=== PATIENT | male | born 1950 | race Caucasian/White ===

== ENCOUNTER → 2017-09-10 | Outpatient (CLI) | payer OTHER ==
[~2017-09-10] MED LIST: ALPRAZOLAM ER1 MG; AMLODIPINE BESYL5 MG PER TUBE; ATORVASTATIN CA20 MG PER TUBE; AUGMENTIN125 MG/53 PO; AZITHROMYCIN 2250 MG PER TUBE; CEFUROXIME500 MG PER TUBE; CLARITIN10 MG PER TUBE; HYDROCODON-ACE1 EA10 PER TUBE; LASIX 20 MG TAB20 MG PO; LEVAQUIN 750 M750 MG PER TUBE; LEVAQUIN 750 M750 MG PO; METFORMIN HCL500 MG PER TUBE; NORVASC5 MG PO; PREDNISONE 10 M10 M1 PER TUBE; ROBITUSSIN100 MG/53 PER TUBE; SINGULAIR 10 MG10 M1 PER TUBE; VENTOLIN HFA 1818 GM INH; VICODIN ES TAB1 EACH; XANAX XR1 MG PER TUBE; XANAX1 MG PER TUBE; ZYVOX600 MG PO; [UNRECOGNIZED DRUG - OTHER]; [UNRECOGNIZED DRUG - OTHER]; [UNRECOGNIZED DRUG - OTHER]; [UNRECOGNIZED DRUG - OTHER]
[2017-09-10 14:52] LABS: HEMATOCRIT 34.5 % (42.0-52.0); HEMOGLOBIN 11.3 gm/dL (14.0-18.0); MCH 29.4 pg (26.0-34.0); MCHC 32.7 g/dL (28.0-37.0); MCV 89.9 fL (80.0-100.0); MPV 7.6 fl. (7.2-11.1); NUCLEATED RBCS 0 /100WBC; PLATELET COUNT* 210 thou/uL (150-400); RBC 3.84 mil/uL (4.50-6.00); RDW-CV 15.2 % (10.5-14.5); WBC 12.7 thou/uL (4.0-11.0)
[2017-09-10 15:06] LABS: CALCIUM 10.1 mg/dL (8.5-10.1); CREATININE 1.3 mg/dL (0.6-1.3); POTASSIUM 4.6 mmol/L (3.5-5.1)
[2017-09-10 15:19] LABS: ABSOLUTE EOSINOPHILS 0.3 thou/uL (0.0-0.7); ABSOLUTE LYMPHOCYTES 1.1 thou/uL (0.8-5.3); ABSOLUTE MONOCYTES 0.9 thou/uL (0.0-1.2); ABSOLUTE NEUTROPHILS 10.4 thou/uL (1.6-8.1)
[2017-09-10 15:20] LABS: PLATELET ESTIMATE ADEQUATE
== END ==
LOC: M.CT 14:05
PROVIDERS: Internal Medicine Critical Care Medicine
DX: J90 Pleural effusion, not elsewhere classified (principal); R91.8 Other nonspecific abnormal finding of lung field; E03.9 Hypothyroidism, unspecified; R13.12 Dysphagia, oropharyngeal phase; Z85.118 Personal history of other malignant neoplasm of bronchus and lung; Z85.810 Personal history of malignant neoplasm of tongue

== ENCOUNTER 2017-09-17 16:15 | Inpatient (IN) | payer OTHER ==
[~2017-09-17] VITALS: Ht 177.8 cm; Wt 75.3 kg
[~2017-09-17 16:15] MED LIST changes: -AUGMENTIN125 MG/53 PO; -AZITHROMYCIN 2250 MG PER TUBE; -CEFUROXIME500 MG PER TUBE; -CLARITIN10 MG PER TUBE; -LASIX 20 MG TAB20 MG PO; -LEVAQUIN 750 M750 MG PER TUBE; -LEVAQUIN 750 M750 MG PO; -NORVASC5 MG PO; -PREDNISONE 10 M10 M1 PER TUBE; -ROBITUSSIN100 MG/53 PER TUBE; -SINGULAIR 10 MG10 M1 PER TUBE; -VENTOLIN HFA 1818 GM INH; -XANAX1 MG PER TUBE; -ZYVOX600 MG PO
[2017-09-17 16:24] VITALS: BP 143/67
[2017-09-17 17:14] LABS: HEMATOCRIT 35.8 % (42.0-52.0); HEMOGLOBIN 11.8 gm/dL (14.0-18.0); MCH 28.8 pg (26.0-34.0); MCHC 33.1 g/dL (28.0-37.0); MCV 87.2 fL (80.0-100.0); NUCLEATED RBCS 0 /100WBC; PLATELET COUNT* 220 thou/uL (150-400); RDW-CV 15.6 % (10.5-14.5); WBC 13.9 thou/uL (4.0-11.0)
[2017-09-17 17:28] LABS: ANION GAP 13 mmol/L (7-16); BUN 28 mg/dL (7-18); CALCIUM 9.8 mg/dL (8.5-10.1); CHLORIDE 94 mmol/L (98-107); CO2 30 mmol/L (21-32); CREATININE 1.1 mg/dL (0.6-1.3); GLUCOSE 130 mg/dL (70-99); POTASSIUM 4.4 mmol/L (3.5-5.1); SODIUM 137 mmol/L (136-145)
[2017-09-17 17:29] LABS: INFLUENZA A ANTIGEN None Detected (None Detect)
[2017-09-17 17:41] LABS: ABSOLUTE BASOPHILS 0.1 thou/uL (0.0-0.2); ABSOLUTE EOSINOPHILS 0.1 thou/uL (0.0-0.7); ABSOLUTE LYMPHOCYTES 0.8 thou/uL (0.8-5.3); ABSOLUTE MONOCYTES 0.6 thou/uL (0.0-1.2); ABSOLUTE NEUTROPHILS 12.2 thou/uL (1.6-8.1); ALBUMIN 3.5 g/dL (3.4-5.0); ALKALINE PHOSPHATASE 100 U/L (46-116); LIPASE 49 U/L (73-393); NT-PRO BRAIN NAT PEPTIDE 182 pg/mL (<300); SGOT 30 U/L (15-37); SGPT 23 U/L (30-65); TOTAL BILIRUBIN 0.3 mg/dL (<0.1-1.0); TOTAL PROTEIN 9.2 g/dL (6.4-8.2); TROPONIN-I LEVEL <0.06 ng/mL (<0.06)
[2017-09-17 17:42] LABS: PLATELET ESTIMATE ADEQUATE
[2017-09-17 17:47] LABS: BE 4.4 mmol/L (-2 to +3); HCO3 29.4 mmol/L (22.0-26.0); PCO2 45.3 mmHg (35.0-45.0)
--- NOTE | 2017-09-17 18:20 | NUR ---
CALLED LET HER KNOW HE WAS BEING ADMITTED
[2017-09-17 18:28] VITALS: BP 140/59
[2017-09-17 18:30] VITALS: BP 141/66
[2017-09-17 23:57] LABS: URINE BILIRUBIN NEGATIVE (Negative); URINE BLOOD NEGATIVE (Negative); URINE CLARITY CLEAR; URINE COLOR YELLOW; URINE GLUCOSE-RANDOM NEGATIVE (Negative); URINE KETONES NEGATIVE (Negative); URINE LEUKOCYTES-REFLEX NEGATIVE (Negative); URINE NITRITE-REFLEX NEGATIVE (Negative); URINE PROTEIN NEGATIVE (Negative); URINE SPECIFIC GRAVITY <= 1.005 (1.005-1.030); URINE UROBILINOGEN 0.2 E.U./dl (0.2-1.0)
[2017-09-18] VITALS: BP 136/59
[2017-09-18 04:18] VITALS: BP 121/50; BP 131/63
[2017-09-18 04:22] LABS: HEMATOCRIT 32.4 % (42.0-52.0); HEMOGLOBIN 10.8 gm/dL (14.0-18.0); MCH 28.8 pg (26.0-34.0); MCHC 33.3 g/dL (28.0-37.0); MCV 86.2 fL (80.0-100.0); RBC 3.76 mil/uL (4.50-6.00); RDW-CV 15.2 % (10.5-14.5); WBC 12.1 thou/uL (4.0-11.0)
[2017-09-18 04:25] LABS: CALCIUM 9.2 mg/dL (8.5-10.1); CREATININE 1.1 mg/dL (0.6-1.3); MAGNESIUM 1.7 mg/dL (1.8-2.4); POTASSIUM 4.3 mmol/L (3.5-5.1)
--- NOTE | 2017-09-18 06:53 | NUR ---
PT SLEPT WELL OVERNIGHT, UP SBA TO SIDE OF BED TO VOID USING URINAL. O2 2LNC. [place]. OCC TOLL RELIEF OPERATOR COUGH HEARD. HS ACCUCHECK 213. AM LABS DRAWN. G TUBE WITH DRESSING IN PLACE, PT RELUCTANT TO HAVE SKIN EXAMINED, SKIN APPEARS A LITTLE RED AROUND TUBE. PT REFUSING TO REMOVE SOCKS, STATES HIS FEET ARE "SORE, AND FINE. I DONT WANT YOU TO DO THAT." HERE AT HS BRIEFLY. PT TAKING XANAX AT HS BY MOUTH WITH WATER-PT STATES HE TAKES MEDS AND "SNACKS" PO. ANOTHER TIME STATES HE DOES NOT TAKE ANY FOOD PO, JUST MEDS. GIVES CONFLICTING ANSWERS TO QUESTIONS AT TIMES THIS SHIFT. HAS SLEPT WELL OVERNIGHT, DROWSY THIS MORNING-XANAX NOT GIVEN. BED ALARM ON FOR SAFETY, CALL LITE IN EASY REACH.
[2017-09-18 08:16] VITALS: BP 126/62
--- NOTE | 2017-09-18 11:58 | NUR ---
SW met with pt and pt bedside to complete initial assessment, introduce self and SW role. Pt alert and oriented. Pt plans to dc home with . Pt has a nebulizer through [facility] and a rolling walker. SW to continue to follow to assist with safe dc planning.
--- NOTE | 2017-09-18 14:38 | EKG ---
[place] [address] ELECTROCARDIOGRAM REPORT Name: ROGE KLEIN Room: [address] ADM IN .R.#: [id number] Admission: 09/17/17 Attend Phys: Jorje Isaac MD Discharge: Date of : 46 Report #: [id number] THIS REPORT FOR: //name// [facility] ED Test Date: 2017-09-17 Test Time: 17:23:22 Pat Name: ROGE KLEIN Department: Room: [facility] Gender: M Inverted Block Operator: : 1950 Requested By: Maureen Ruiz Order Number: [id number] MD: Bakari Alaniz Measurements Intervals [place] Rate: 78 P: 9 NH: 143 QRS: 24 QRSD: 82 T: 32 QT: 372 QTc: 424 Interpretive Statements Sinus rhythm Low voltage, extremity leads No previous ECG available for comparison Electronically Signed On 09-18-2017 14:38:43 POSITION CLERK by Bakari Alaniz [email or web address] <ELECTRONICALLY SIGNED> By: Bakari Alaniz MD, [facility] 09/18/17 1438 1723 22 Bakari Alaniz MD, FACC /EPI
[2017-09-18 15:00] VITALS: BP 136/54
[2017-09-18 19:26] VITALS: BP 118/64
--- NOTE | 2017-09-18 19:34 | NUR ---
PATIENT RESTING IN BED. PATIENT DENIES ANY PAIN. PATIENT HAD COMPLAINTS OF NAUSEA THIS AM, ZOFRAN GIVEN WITH PARTIAL RELIEF. PATIENT IS ON TUBE FEEDING TID. PATIENT REFUSED AM FEED. ADMINISTERED LUNCHTIME AND DINNER BOLUSES. PATIENT HAS HAD NO VOMITING. PATIENT SEEN BY SPEECH THERAPY THIS AFTERNOON AND RECOMMENDED VIDEO SWALLOW BUT IT CAN'T BE COMPLETED UNTIL FRIDAY, NO DIET CHANGES AT THIS TIME PER SPEECH THERAPIST. PATIENT HAD SHORTNESS OF BREATH THIS AM, OR SATS AT 88% ON 2L/NC. PATIENT IS CURRENTLY ON 3L/NC. PATIENT DENIES ANY NEEDS AT THIS TIME. CALL LIGHT WITHIN REACH. WILL CONTINUE TO MONITOR.
--- NOTE | 2017-09-19 06:14 | NUR ---
ASSESSMENT COMPLETE. PT SLEPT GOOD DURING THE NIGHT. PT DENIES PAIN AND N/V. PT IS ON 2L PER NC WITH [place] SATS. PT IS IN ISOLATION FOR INFLUENZA B. PT IS ACCUCHECK. PT HAS IV IN LEFT AC, SALINE LOCKED. PT SKIN INTACT. PT TURNS SELF IN BED. PT IS UP WITH STANDBY ASSIST. PT IS SLEEPING AT THIS TIME AND HAS NO OTHER CONCERNS. SEE ASSESSMENT AND VITALS FOR OTHER DETAILS. CALL LIGHT WITHIN REACH, WILL CONTINUE TO MONITOR
[2017-09-19 08:00] VITALS: BP 132/62
[2017-09-19] MEDS ORDERED: AZITHROMYCIN 2250 MG PER TUBE (10:03)
[2017-09-19] MEDS ORDERED: CEFUROXIME500 MG PER TUBE (10:03)
[2017-09-19] MEDS ORDERED: ROBITUSSIN100 MG/53 PER TUBE (10:03)
--- NOTE | 2017-09-19 12:25 | NUR ---
Nutrition: RECOMMEND ADDING ONE MORE CARTON OF DIABETISOURCE TO PT'S TF REGIMEN DAILY - TOTALING 6 CARTONS PER DAY.
[2017-09-19 16:12] VITALS: BP 132/62
[2017-09-19 16:13] VITALS: BP 132/62
--- NOTE | 2017-09-19 16:14 | NUR ---
ISAAC faxed script for pt to receive OP video swallow after dc to [facility] OP therapy fax [phone]. OP therapy to contact pt for appointment. Pt to dc home today with pt and in need of oxygen with activity. Pt already using [facility] for nebulizer. [facility]AAC faxed orders and referral for oxygen to [facility] at fax [phone]. And ISAAC called [facility] at [phone] who accepted referral and will be delivering oxygen to pt room prior to pt dc. [facility] faxed referral and initial orders/med list to [facility].
[2017-09-19 17:37] VITALS: BP 133/62
--- NOTE | 2017-09-19 18:17 | NUR ---
ASSUMED CARE OF PATIENT. A/O X 4, DENIES PAIN, UP AD LOREN, ENRIQUE DIET WELL, VSS. ORDERS RECEIVED FOR DISCHARGE, NEEDING OXYGEN WITH ACTIVITY, 02 SAT STUDY COMPLETED, [facility] PROVIDED TANK FOR DISCHARGE, WILL MEET PATIENT AT RESIDENCE FOR HOME OXYGEN. PATIENT AGREEABLE WITH HOME HEALTH SERVICES, DISCHARGE ORDERS, FOLLOW UP APPOINTMENTS AND PRESCRIPTIONS DISCUSSED WITH AND GIVEN TO PATIENT AND , DENIES QUESTIONS AT THIS TIME. PERSONAL EFFECTS ACCOUNTED FOR AND IN COMPANY OF PATIENT, TRANSPORTED TO MAIN ENTRANCE VIA WHEELCHAIR, ON OXYGEN @ 3L NC, IN STABLE CONDITION.
== END 2017-09-19 17:00 | disposition home health service (06) | DRG 871 ==
LOC: M.ERS 16:15 → M.3W 17:07 → M.TBA-ER 17:07 → M.3W 18:34
PROVIDERS: Physician Assistant; ADMIT Internal Medicine
DX: A41.89 Other specified sepsis (principal); J69.0 Pneumonitis due to inhalation of food and vomit; J96.01 Acute respiratory failure with hypoxia; J10.08 Influenza due to other identified influenza virus with other specified pneumonia; I10 Essential (primary) hypertension; J20.8 Acute bronchitis due to other specified organisms; J47.9 Bronchiectasis, uncomplicated; E11.9 Type 2 diabetes mellitus without complications; Z87.891 Personal history of nicotine dependence; Z85.118 Personal history of other malignant neoplasm of bronchus and lung; Z85.810 Personal history of malignant neoplasm of tongue; Z92.21 Personal history of antineoplastic chemotherapy; Z92.3 Personal history of irradiation; Z93.1 Gastrostomy status; Z79.84 Long term (current) use of oral hypoglycemic drugs; Z79.899 Other long term (current) drug therapy; Z88.8 Allergy status to other drugs, medicaments and biological substances

== ENCOUNTER 2017-10-02 09:09 | Inpatient (IN) | payer OTHER ==
[~2017-10-02] VITALS: Ht 180.3 cm; Wt 74.8 kg
[~2017-10-02 09:09] MED LIST changes: +AZITHROMYCIN 2250 MG PER TUBE; +CEFUROXIME500 MG PER TUBE; +ROBITUSSIN100 MG/53 PER TUBE
[2017-10-02 09:17] VITALS: BP 126/63
[2017-10-02 09:50] LABS: HEMOGLOBIN 10.5 gm/dL (14.0-18.0); MCH 28.8 pg (26.0-34.0); MCHC 32.9 g/dL (28.0-37.0); MCV 87.4 fL (80.0-100.0); NUCLEATED RBCS 0 /100WBC; PLATELET COUNT* 210 thou/uL (150-400); RBC 3.67 mil/uL (4.50-6.00); RDW-CV 15.6 % (10.5-14.5); WBC 22.4 thou/uL (4.0-11.0)
[2017-10-02 10:00] LABS: BE 3.8 mmol/L (-2 to +3); HCO3 30.2 mmol/L (22.0-26.0); PO2 99.7 mmHg (75.0-100.0)
[2017-10-02 10:00] LABS: ANION GAP 4 mmol/L (7-16); BUN 30 mg/dL (7-18); CALCIUM 9.5 mg/dL (8.5-10.1); CHLORIDE 99 mmol/L (98-107); CO2 32 mmol/L (21-32); CREATININE 1.2 mg/dL (0.6-1.3); GLUCOSE 116 mg/dL (70-99); POTASSIUM 4.6 mmol/L (3.5-5.1); SODIUM 135 mmol/L (136-145)
[2017-10-02 10:01] LABS: PCO2 53.4 mmHg (35.0-45.0)
[2017-10-02 10:10] LABS: ALBUMIN 3.1 g/dL (3.4-5.0); ALKALINE PHOSPHATASE 78 U/L (46-116); LIPASE 45 U/L (73-393); NT-PRO BRAIN NAT PEPTIDE 165 pg/mL (<300); SGOT 16 U/L (15-37); SGPT 21 U/L (30-65); TOTAL BILIRUBIN 0.4 mg/dL (<0.1-1.0); TOTAL PROTEIN 8.6 g/dL (6.4-8.2); TROPONIN-I LEVEL <0.06 ng/mL (<0.06)
[2017-10-02 10:13] LABS: INR 1.2; PROTIME 11.4 Seconds (9.20-11.50)
[2017-10-02 10:34] LABS: ABSOLUTE EOSINOPHILS 0.2 thou/uL (0.0-0.7); ABSOLUTE LYMPHOCYTES 0.4 thou/uL (0.8-5.3); ABSOLUTE MONOCYTES 0.7 thou/uL (0.0-1.2); ABSOLUTE NEUTROPHILS 21.1 thou/uL (1.6-8.1); HYPOCHROMASIA 1+; LARGE PLATELETS OCCASIONAL; PLATELET ESTIMATE ADEQUATE
[2017-10-02 13:25] VITALS: BP 128/64
--- NOTE | 2017-10-02 17:18 | EKG ---
[place] [address] ELECTROCARDIOGRAM REPORT Name: ROGE KLEIN Room: [address] ADM IN M.R.#: [id number] Admission: 10/02/17 Attend Phys: Pardeep Shi MD Discharge: Date of : 46 Report #: [id number] THIS REPORT FOR: //name// [facility] ED Test Date: 2017-10-02 Test Time: 10:06:37 Pat Name: ROGE KLEIN Department: Room: [facility] Gender: M Diagnostic Medical Sonographer: MARÍA : 1950 Requested By: Raffi Matta Order Number: [id number] MD: Reggie Grace Measurements Intervals [place] Rate: 92 P: 26 CT: 129 QRS: 37 QRSD: 85 T: 41 QT: 345 QTc: 427 Interpretive Statements Sinus rhythm Low voltage, extremity leads Compared to ECG 09/17/2017 17:23:22 No significant changes Electronically Signed On 10-02-2017 17:18:07 ARM REST BUILDER by Reggie Grace [email or web address] <ELECTRONICALLY SIGNED> By: Reggie Grace MD, [facility] 10/02/17 1718 05 05 Reggie Grace MD, FAC /EPI
[2017-10-02 18:00] VITALS: BP 122/71
[2017-10-02 19:45] VITALS: BP 128/59
--- NOTE | 2017-10-02 19:45 | NUR ---
RESUMED CARE FOR THIS PATIENT THIS AFTERNOON. RECENTLY DISCHARGED WITH INSTRUCTIONS FOR OUTPATIENT VIDEO SWALLOW STUDY RE: RECURRENT ASPIRATION. PATIENT HAS PEG TUBE WITH SCHED BOLUS OF ISOSOURCE 1.5, 500 ML @ 0900, 500 ML @ 14OO, 250 ML @ 1900. BOLUS GIVEN @ 1800 THIS EVENING DUE TO MRI OF HEAD, COMPLETE. ON 5L02NC, LUNGS DIMIN THROUGHOUT, NONPROD COUGH, POOR COUGH. INCONTINENT OF URINE X 1 THIS SHIFT. KEPT STRICT NPO THIS SHIFT DUE TO RLL ASP VS. HCAP PNEUMONIA. 20G TO RAC PATENT TO NS @ 80/HR, ENRIQUE IV ABT WIHOUT NOTED ADR. CONFUSED FALL RISK, SIDERAILS UP X 4, BED ALARM ON, CALL LIGHT IN REACH. DISCHARGE PLAN IS TO [facility] FOR PT/OT/ST, POSSIBLE LTC VS. HOSPICE. CASE MANAGEMENT MADE AWARE OF PATIENT'S NOT FEELING SAFE WHEN CONSIDERING PATIENT RETURNING TO HOME. CALL LIGHT IN REACH, REPORT GIVEN TO PHOTO MASK CLEANER.
[2017-10-03] VITALS: BP 121/50
[2017-10-03 04:00] VITALS: BP 112/50
[2017-10-03 04:35] LABS: ABSOLUTE EOSINOPHILS 0.3 thou/uL (0.0-0.7); ABSOLUTE LYMPHOCYTES 0.7 thou/uL (0.8-5.3); ABSOLUTE MONOCYTES 1.1 thou/uL (0.0-1.2); ABSOLUTE NEUTROPHILS 8.8 thou/uL (1.6-8.1); BASOPHILS 0.2 %; EOSINOPHILS 2.4 %; HEMATOCRIT 30.9 % (42.0-52.0); HEMOGLOBIN 10.3 gm/dL (14.0-18.0); LYMPHOCYTES 6.7 %; MCH 29.3 pg (26.0-34.0); MCHC 33.4 g/dL (28.0-37.0); MCV 87.7 fL (80.0-100.0); MONOCYTES 10.3 %; MPV 8.5 fl. (7.2-11.1); NUCLEATED RBCS 0 /100WBC; PLATELET COUNT* 189 thou/uL (150-400); POLYS 80.4 %; RBC 3.52 mil/uL (4.50-6.00); RDW-CV 15.6 % (10.5-14.5)
[2017-10-03 04:47] LABS: CALCIUM 8.5 mg/dL (8.5-10.1); CREATININE 1.1 mg/dL (0.6-1.3); POTASSIUM 4.6 mmol/L (3.5-5.1)
--- NOTE | 2017-10-03 07:01 | NUR ---
PT AWAKE MOST OF NIGHT. ASSESSMENT DOCUMENTED. MEDS GIVEN PER E-MAR. PEG TUBE PATENT. IV PATENT, FLUIDS INFUSING. NEW IV STARTED. PT REPORTED GENERALIZED PAIN, PAIN MEDS GIVEN PER E-MAR. NO CONCERNS AT THIS TIME.
[2017-10-03 08:00] VITALS: BP 122/61
--- NOTE | 2017-10-03 14:17 | NUR ---
SW met with pt and pt to complete initial assessment, introduce self and SW role. Pt lives at home with . Pt known to SW from pt previous admission. Pt has oxygen at home through [facility] on 3L. SW discussed HH services through [facility] and pt said she would like for him to have HH services but at last dc, [facility] called to arrange visits, and pt refused. Pt wants pt to try again and SW said we could try to arrange again if pt will agree to HH services being arranged and if HH accepts referral. Pt understanding. SW to continue to follow to assist with safe dc planning.
[2017-10-03 16:24] VITALS: BP 122/54
[2017-10-03 19:40] VITALS: BP 118/51
--- NOTE | 2017-10-03 19:49 | NUR ---
RESUMED CARE THIS AM. CONT TO BE CONFUSED, VERY SUSPICIOUS OF STAFF ACTIVITY. CONT TO BE STRICT NPO, PATIENT THREATENS NONCOMPLIANCE FREQUENTLY. VIDEO SWALLOW EVAL COMPLETED, FAILED, STRICT NPO. CONT ON 6L02NC, AT BEDSIDE MOST OF THIS SHIFT. EEG SCHEDULED FOR TOMORROW AM. ENRIQUE IV ABT W/O ADR, ENRIQUE BOLUS TUBE FEEDING WITHOUT DIFF, BM TODAY. DISCHARGE PLAN IS TO FIND A [place] CONTRACTED FACILITY FOR PT/OT/ST, DUE TO EXTREME DYSPHAGIA, COGNITIVE DEFICIT, UNSTEADY GAIT, WEAKNESS, IMPAIRED ADL.
[2017-10-04 03:52] LABS: ABSOLUTE EOSINOPHILS 0.2 thou/uL (0.0-0.7); ABSOLUTE LYMPHOCYTES 0.6 thou/uL (0.8-5.3); ABSOLUTE MONOCYTES 0.7 thou/uL (0.0-1.2); ABSOLUTE NEUTROPHILS 9.2 thou/uL (1.6-8.1); BASOPHILS 0.3 %; EOSINOPHILS 2.1 %; HEMATOCRIT 31.1 % (42.0-52.0); HEMOGLOBIN 10.2 gm/dL (14.0-18.0); LYMPHOCYTES 5.7 %; MCH 28.9 pg (26.0-34.0); MCHC 32.8 g/dL (28.0-37.0); MONOCYTES 6.6 %; MPV 8.2 fl. (7.2-11.1); NUCLEATED RBCS 0 /100WBC; PLATELET COUNT* 190 thou/uL (150-400); POLYS 85.3 %; RBC 3.53 mil/uL (4.50-6.00); RDW-CV 15.5 % (10.5-14.5); WBC 10.8 thou/uL (4.0-11.0)
[2017-10-04 04:06] LABS: CALCIUM 9.4 mg/dL (8.5-10.1); CREATININE 1.1 mg/dL (0.6-1.3); POTASSIUM 4.5 mmol/L (3.5-5.1)
--- NOTE | 2017-10-04 05:54 | NUR ---
ASSESSMENT COMPLETE. PT UP ALL NIGHT. PT GIVEN PRN XANAX AND HYDROCODONE ONCE DURING THE NIGHT. PT IS NPO FOR FAILED SWALLOW STUDY. MEDICATION GIVEN PER G TUBE. PT GIVEN IV ZOSYN SCHEDULED. PT IS FALL RISK, BED ALARM ON. PT HAS IV FLUIDS INFUSING. SEE ASSESSMENT AND VITALS FOR OTHER DETAILS. CALL LIGHT WITHIN REACH. WILL CONTINUE PLAN OF CARE.
[2017-10-04 08:00] VITALS: BP 118/51
--- NOTE | 2017-10-04 12:00 | NUR ---
PATIENT REFUSING ALL MEDICATION AND TUBE FEEDING. ADAMANT ABOUT BEING DISCHARGED TODAY, CLEARED FOR DISCHARGE BY NEUROLOGY, DISCHARGE ORDERS RECEIVED FROM DR. STACY.
[2017-10-04] MEDS ORDERED: AUGMENTIN125 MG/53 PO (12:10)
[2017-10-04 12:16] VITALS: BP 118/51
--- NOTE | 2017-10-04 14:00 | NUR ---
PT.THREATENING TO LEAVE AMA EARLIER THIS AM. DISCUSSED WITH HIM AND AND WROTE DISCHARGE ORDERS FOR HOME HEALTH. MARCELINO,RN SAID PT.IS ALERT AND ORIENTED BUT HAS DEMENTIA AND CAN GET VERBALLY ABUSIVE AT TIMES. CM SPOKE WITH PT.AND . PT.VERY AGREEABLE WHILE CM IN ROOM TO HH. CM CALLED AND SPOKE WITH [facility]. PT.HAD REFUSED HH LAST DISCHARGE WHEN THEY CALLED HIM TO SET UP APPT. WANTS TO TRY AGAIN. HOME HEALTH TO CALL WIFES PHONE NUMBER TO SET UP APPT. PT.IS NPO AND HAS TUBE FDGS THAT ADMINISTERS. SHE SAID SHE GIVES HIM ABOUT 5 CANS PER DAY. SHE HAS BEEN GETTING THEM ON LINE. TOLD HER IF PT.UNABLE TO EAT AND TF ARE MAIN SOURCE OF NUTRITION, INSURANCE SHOULD BE PAYING FOR THEM. SHE WAS AGREEABLE TO CM MAKING REFERRAL TO [facility] FOR TF. PT.HAS HOME O2 THROUGH [facility]. DID NOT BRING PORTABLE. NOTIFIED OFFICE. DISTRIBUTION CENTER MANAGER CALLED BACK AND SAID HE WOULD BE ABOUT AN HR BUT WILL DELIVER PORTABLE TANK TO PT.'S ROOM. GAVE SR.HANDBOOK WITH RESOURCE INFORMATION AND LTC/SNF INFORMATION WHEN SHE WAS OUTSIDE OF PT.ROOM. FILAMENT MAKER ALSO ORDERED WITH HOME HEALTH. FAXED ORDERS,H&P TO [facility].
--- NOTE | 2017-10-04 16:07 | NUR ---
DISCHARGE ORDERS RECEIVED, OXYGEN TANK DELIVERED BY [facility]. IV ACCESSES REMOVED WITHOUT INCIDENT. DISCHARGE INSTRUCTIONS, FOLLOW UP APPOINTMENTS, PRESCRIPTION DISCUSSED WITH AND GIVEN TO PATIENT, AT BEDSIDE, BOTH DENY QUESTIONS AT THIS TIME. STRESSED THE IMPORTANCE OF NOT TAKING ANYTHING BY MOUTH ORDERED. PATIENT TRANSPORTED TO MAIN ENTRANCE VIA WHEELCHAIR BY THIS NURSE, OXYGEN ON, IN STABLE CONDITION.
--- NOTE | 2017-10-09 11:51 | CON ---
[address] [address] CONSULTATION Name: ROGE KLEIN Room: [address] IN M.R.#: [id number] Admission: 10/02/17 Attend Phys: Pardeep Shi MD Discharge: 10/04/17 Date of : 46 Report #: [id number] THIS REPORT FOR: //name// [facility] DATE OF SERVICE: 10/03/2017 HISTORY OF PRESENT ILLNESS: This is a 67-year-old male patient who was evaluated for any neurological etiology for the patient's altered mental status. This patient started having some cough and respiratory symptoms and along with that he developed some altered mental status. Apparently, this is going on for at least for a few months. It is not clear what his memory was before this episode. It looks like he was having some short-term memory problem. It started spontaneously and there was no trauma associated with this. He also has some disturbances of his gait and ambulation in general. REVIEW OF SYSTEMS: Extensive in this patient. He had apparently a lung cancer. This was treated with chemotherapy and radiation. He had recurrent episode of pneumonia. It looks like he had some hypoxia and dysphagia. He does have some anxiety. There is a history of chronic back pain. He has a history of anemia. He has a history of diabetes and hypertension. This was relevant 14-point review of system in this patient. PAST MEDICAL HISTORY: Positive for lung cancer. FAMILY HISTORY: Negative for early age stroke. SOCIAL HISTORY: This patient used to smoke and drink alcohol until his cancer was diagnosed a few months ago. PHYSICAL EXAMINATION: Indicate he is alert. He is responsive. His memory is poor. His fund of knowledge is poor. His speech looks intact. Cranial nerve examination 2-12 was carried out and mostly looks unremarkable. His strength, sensation, reflexes and tone looks symmetrical. His reflexes are diminished, but his position sense is present. He does not appear to have any cerebellar sign, but he has difficulty with walking and that may be because of either perineoplastic process or because of his heavy drinking alcohol in the past. His pulses are difficult to feel. He has no edema, cyanosis or jaundice. His fundus could not be visualized because he could not cooperate. He is reasonably well-developed individual who does not have any dysmorphic features of eyes, ears and face. His vision and hearing looks adequate. His blood pressure is 122/61, pulse is 77 and temperature is 98.4. His cardiac examinations appear mostly unremarkable. His respiratory examination does indicate rhonchi on both sides and he does [place] [address] CONSULTATION Name: ROGE KLEIN Room: [address] IN ..#: [id number] Admission: 10/02/17 Attend Phys: Pardeep Shi MD Discharge: 10/04/17 Date of : 46 Report #: [id number] LABORATORY DATA: His white count now is 11.0 and it was 22.4 yesterday. His TSH in August was normal. He did have an MRI of the brain that appeared mostly unremarkable. IMPRESSION: This patient's altered mental status is most likely secondary to encephalopathy caused by systemic infection as well as systemic problems this patient is having. WIND FARM OPERATIONS MANAGER infection is difficult to exclude. Other WIND FARM OPERATIONS MANAGER etiologies are less likely. RECOMMENDATION: I discussed with the patient and the family, his options. I discussed with them that if we need to be thorough, we need to do the spinal tap. They want to skip the spinal tap and we will do that. I will check a B12 level in this patient. I will check an EEG in this patient. Otherwise, I think we need to treat his systemic infection and see how he does. He also has a systemic malignancy and that can cause multiple perineoplastic processes. I discussed that aspect with the patient and the family. They understand it very well. The patient was discussed with Dr. Shi. More than 50 minutes of time was spent taking care of this patient today and majority of the time was spent counseling this patient and coordinating his care. Thank you very much for this referral. <ELECTRONICALLY SIGNED> By: Devan Charles MD 10/09/17 1151 1553 0417Devan Charles MD /nt
--- NOTE | 2017-10-09 11:53 | EEG ---
[address] [address] EEG STUDY REPORT Name: ROGE KLEIN Room: [address] IN M.R.#: [id number] Admission: 10/02/17 Attend Phys: Pardeep Shi MD Discharge: 10/04/17 Date of : 46 Report #: [id number] THIS REPORT FOR: //name// CC: Pardeep Shi [facility] DATE OF SERVICE: 10/04/2017 This patient is being evaluated for altered mental status. EEG was done by placing the electrodes by standard 10-20 system of electrode placement. Both referential and sequential montages were used for recording. Background activity in this patient's EEG is about 8 Hz and 30 microvolt. It is intermixed with theta range slowing on both sides. The patient went to sleep that is associated with bilateral slowing and vertex sharp waves. Throughout the record, no active epileptiform activity was noted. IMPRESSION: Moderately abnormal EEG because it is intermixed with theta range slowing on both sides. That is a nonspecific abnormality, which can occur with encephalopathy, effect of psychotropic medication, dementia, etc. Clinical correlation is recommended. Thank you very much for this referral. <ELECTRONICALLY SIGNED> By: Devan Charles MD 10/09/17 1153 1546 1703Pshaka Charles MD /nt
== END 2017-10-04 16:14 | disposition home health service (06) | DRG 871 ==
LOC: M.ERS 09:09 → M.3W 10:33 → M.TBA-ER 10:33 → M.3W 13:40
PROVIDERS: Emergency Medicine; ADMIT Internal Medicine
DX: A41.9 Sepsis, unspecified organism (principal); J69.0 Pneumonitis due to inhalation of food and vomit; J96.20 Acute and chronic respiratory failure, unspecified whether with hypoxia or hypercapnia; G93.40 Encephalopathy, unspecified; E44.0 Moderate protein-calorie malnutrition; I10 Essential (primary) hypertension; R13.10 Dysphagia, unspecified; G89.29 Other chronic pain; F03.90 Unspecified dementia, unspecified severity, without behavioral disturbance, psychotic disturbance, mood disturbance, and anxiety; M54.9 Dorsalgia, unspecified; E11.9 Type 2 diabetes mellitus without complications; Z85.810 Personal history of malignant neoplasm of tongue; Z92.21 Personal history of antineoplastic chemotherapy; Z92.3 Personal history of irradiation; Z85.118 Personal history of other malignant neoplasm of bronchus and lung; Z88.8 Allergy status to other drugs, medicaments and biological substances; Z87.891 Personal history of nicotine dependence; Z68.23 Body mass index [BMI] 23.0-23.9, adult; Z79.899 Other long term (current) drug therapy

== ENCOUNTER 2017-10-13 08:02 | Emergency (ER) | payer OTHER ==
[~2017-10-13] VITALS: Ht 180.3 cm; Wt 69.8 kg
[~2017-10-13 08:02] MED LIST changes: +AUGMENTIN125 MG/53 PO
[2017-10-13] MEDS ORDERED: XANAX1 MG PER TUBE (08:16)
[2017-10-13 10:06] VITALS: BP 129/65
== END 2017-10-13 10:08 | disposition home or self-care (01) ==
LOC: M.ERS 08:02
DX: K94.23 Gastrostomy malfunction (principal); I10 Essential (primary) hypertension; G89.29 Other chronic pain; E11.9 Type 2 diabetes mellitus without complications; Z88.8 Allergy status to other drugs, medicaments and biological substances

== ENCOUNTER 2017-10-15 15:48 | Inpatient (IN) | payer OTHER ==
[~2017-10-15] VITALS: Ht 177.8 cm; Wt 73.9 kg
[~2017-10-15 15:48] MED LIST changes: +XANAX1 MG PER TUBE
[2017-10-15 16:00] VITALS: BP 115/50
[2017-10-15 16:35] LABS: HEMATOCRIT 30.9 % (42.0-52.0); HEMOGLOBIN 9.9 gm/dL (14.0-18.0); MCH 28.2 pg (26.0-34.0); MCHC 32.2 g/dL (28.0-37.0); MCV 87.7 fL (80.0-100.0); MPV 8.4 fl. (7.2-11.1); NUCLEATED RBCS 0 /100WBC; PLATELET COUNT* 210 thou/uL (150-400); RBC 3.53 mil/uL (4.50-6.00); RDW-CV 15.9 % (10.5-14.5); WBC 13.5 thou/uL (4.0-11.0)
[2017-10-15 16:44] LABS: ANION GAP 2 mmol/L (7-16); BUN 34 mg/dL (7-18); CALCIUM 9.5 mg/dL (8.5-10.1); CHLORIDE 100 mmol/L (98-107); CO2 38 mmol/L (21-32); CREATININE 1.2 mg/dL (0.6-1.3); GLUCOSE 132 mg/dL (70-99); POTASSIUM 4.7 mmol/L (3.5-5.1); SODIUM 140 mmol/L (136-145)
[2017-10-15 16:51] LABS: APTT 29.6 Seconds (25.0-31.3); INR 1.2; PROTIME 11.4 Seconds (9.20-11.50)
[2017-10-15 16:55] LABS: ALKALINE PHOSPHATASE 77 U/L (46-116); NT-PRO BRAIN NAT PEPTIDE 256 pg/mL (<300); SGOT 21 U/L (15-37); SGPT 19 U/L (30-65); TOTAL BILIRUBIN 0.3 mg/dL (<0.1-1.0); TOTAL PROTEIN 8.7 g/dL (6.4-8.2); TROPONIN-I LEVEL <0.06 ng/mL (<0.06)
[2017-10-15 17:18] LABS: INFLUENZA A ANTIGEN None Detected (None Detect); INFLUENZA B ANTIGEN None Detected (None Detect)
[2017-10-15 17:36] LABS: ABSOLUTE EOSINOPHILS 0.1 thou/uL (0.0-0.7); ABSOLUTE LYMPHOCYTES 0.8 thou/uL (0.8-5.3); ABSOLUTE MONOCYTES 0.5 thou/uL (0.0-1.2)
[2017-10-15 17:37] LABS: MICROCYTES Occasional; PLATELET ESTIMATE ADEQUATE
[2017-10-15 18:37] VITALS: BP 110/63
[2017-10-15 22:04] VITALS: BP 140/78
[2017-10-15 23:41] VITALS: BP 124/76
[2017-10-16 04:00] VITALS: BP 125/69
--- NOTE | 2017-10-16 04:04 | NUR ---
ASSUMED CARE OF PT AT 1900 FROM THE ER. PT IS ALERT AND ORIENTED. VSS. PERRLA. NO COMPLAINTS OF PAIN. UP WITH 1 ASSIST. PT IS IN SINUS RYTHM ON THE TELEMETRY. PT IS RESTING COMFORTABLY IN BED. RESPIRATIONS ARE EVEN AND NONLABORED. WILL CONTINUE TO MONITOR PT.
[2017-10-16 04:37] LABS: BE 8.6 mmol/L (-2 to +3); HCO3 36.6 mmol/L (22.0-26.0); PO2 102.8 mmHg (75.0-100.0); pH 7.326 (7.340-7.450)
[2017-10-16 04:40] LABS: PCO2 71.7 mmHg (35.0-45.0)
[2017-10-16 08:30] VITALS: BP 120/48
[2017-10-16 11:20] VITALS: BP 135/53
--- NOTE | 2017-10-16 11:31 | NUR ---
RECEIVED REPORT AND ASSUMED CARE OF PT AT 0730. VSS. PT ON 6L VIA NC. PT UP WITH SBA IN ROOM WITH BRP. PT ALERT AND ORIENTED, WITH SOME FORGETFULNESS. PT DENIES ANY COMPLAINTS OF PAIN. CARDIAC MONITORING IN PLACE. DISCUSSED PLAN OF CARE WITH PT. PT COMMUNICATES UNDERSTANDING OF PLAN OF CARE. WILL CONTINUE TO MONITOR.
--- NOTE | 2017-10-16 12:49 | EKG ---
[place] [address] ELECTROCARDIOGRAM REPORT Name: ROGE KLEIN Room: [address] ADM IN M.R.#: [id number] Admission: 10/15/17 Attend Phys: Hollis Armendariz Discharge: Date of : 46 Report #: [id number] THIS REPORT FOR: //name// [facility] ED Test Date: 2017-10-15 Test Time: 16:10:13 Pat Name: ROGE KLEIN Department: Room: [facility] Gender: M Shell Trim Tool Setter: ROSI [place] : 1950 Requested By: Vinayak Rogers Order Number: [id number] MD: Reggie Grace Measurements Intervals [place] Rate: 92 P: 11 [place]: 138 QRS: 11 QRSD: 84 T: 57 QT: 346 QTc: 429 Interpretive Statements Sinus rhythm Minimal ST elevation, lateral leads Nonspecific ST-T wave abnormality Compared to ECG 10/02/2017 10:06:37 No significant change Electronically Signed On 10-16-2017 12:49:25 MANAGER FINANCE by Reggie Grace [email or web address] <ELECTRONICALLY SIGNED> By: Reggie Grace MD, FACC 10/16/17 1249 1610 1610 Reggie Grace MD, [facility] /EPI
--- NOTE | 2017-10-16 13:48 | NUR ---
CM SPOKE TO THE PATIENT AND HIS TO DISCUSS HIS HOME SITUATION, DISCHARGE PLANNING, AND TO INFORM OF THE ROLE OF CM. PATIENT ALERT AND ORIENTED. PATIENT RESIDES AT HOME WITH HIS AND SHE ASSIST HIM AT HOME WITH CARES AND TUBE FEEDINGS. PATIENT USES HOME O2 @ 3L PROVIDED BY [facility]. PATIENT IS CURRENT WITH [facility] AND WILL NEED ORDERS TO RESUME HH AT D/C. PATIENT PLANS TO RETURN HOME AT D/C. CM WILL REMAIN AVIALABLE TO ASSIST AND FOLLOW NEEDED.
--- NOTE | 2017-10-16 16:33 | 2DMMODE ---
[place] [address] 2 D/M-MODE ECHOCARDIOGRAM Name: ROGE KLEIN Room: [address] ADM IN [facility]#: [id number] Admission: 10/15/17 Attend Phys: Mariella Willoughby Discharge: Date of : 46 Date of Service: 10/16/17 1633 Report #: [id number] THIS REPORT FOR: //name// APPROVED REPORT Study performed: 10/16/2017 13:44:28 EXAM: Comprehensive 2D, Doppler, and color-flow Echocardiogram Patient Location: In-Patient Room #: [facility] Status: routine BSA: 1.91 HR: 94 bpm BP: 135/53 mmHg Rhythm: NSR Other Information Study Quality: Good Indications Dyspnea AMS 2D Dimensions LVEF(%): 72.60 (>50%) IVSd: 9.78 (7-11mm) LVOT Diam: 19.66 (18-24mm) LVDd: 46.15 mm PWd: 10.66 (7-11mm) Ascending Ao: 32.31 (22-36mm) LVDs: 26.94 (25-40mm) Aortic Root: 31.85 mm Coleman's LVEF: 72.60 % Volumes Left Atrial Volume (Systole) LA ESV Index: 18.50 mL/m2 Aortic Valve AoV Peak Ricardo.: 1.50 m/s AO Peak Gr.: 8.97 mmHg LVOT Max P.24 mmHg AO Mean Gr.: 4.74 mmHg LVOT Mean P.37 mmHg LVOT Max V: 1.25 m/s AO V2 VTI: 26.81 cm LVOT Mean V: 0.86 m/s AIDAN (VTI): 2.69 cm2 LVOT V1 VTI: 23.76 [place] [address] 2 D/M-MODE ECHOCARDIOGRAM Name: ROGE KLEIN Room: [address] IN .R.#: [id number] Admission: 10/15/17 Attend Phys: Mariella Willoughby Discharge: Date of : 46 Date of Service: 10/16/17 1633 Report #: [id number] E/A Ratio: 1.06 MV Decel. Time: 187.63 ms MV E Max Ricardo.: 1.00 m/s MV PHT: 54.41 ms MVA (PHT): 4.04 cm2 TDI E/Lateral E': 9.09 E/Medial E': 10.00 Medial E' Ricardo.: 0.10 m/s Lateral E' Ricardo.: 0.11 m/s Pulmonary Valve PV Peak Ricardo.: 1.21 m/s PV Peak Gr.: 5.82 mmHg Left Ventricle The left ventricle is normal size. There is normal LV segmental wall motion. There is normal left ventricular wall thickness. Left ventricular systolic function is normal. LVEF is >70%. Transmitral Doppler flow pattern suggests impaired LV relaxation. Right Ventricle The right ventricle is normal size. The right ventricular systolic function is normal. Atria The left atrium size is normal. The right atrium size is normal. Aortic Valve The aortic valve is normal in structure. No aortic regurgitation is present. There is no aortic valvular stenosis. Mitral Valve The mitral valve is normal in structure. There is no mitral valve regurgitation noted. No evidence of mitral valve stenosis. Tricuspid Valve The tricuspid valve is normal in structure. Unable to assess PA pressure. Trace tricuspid regurgitation. Pulmonic Valve The pulmonary valve is normal in structure. There is no pulmonic valvular regurgitation. Great Vessels The aortic root is normal in size. IVC is [place] [address] 2 D/M-MODE ECHOCARDIOGRAM Name: ROGE KLEIN SORIN Room: [address] IN M.R.#: [id number] Admission: 10/15/17 Attend Phys: Mariella Willoughby Discharge: Date of : 46 Date of Service: 10/16/17 1633 Report #: [id number] collapses with >50% inspiration Pericardium There is no pericardial effusion. <Conclusion> The left ventricle is normal size. There is normal left ventricular wall thickness. Left ventricular systolic function is normal. LVEF is >70%. Transmitral Doppler flow pattern suggests impaired LV relaxation. <ELECTRONICALLY SIGNED> By: Reggie Grace MD, FACC 10/16/17 1633 1633 1633 Reggie Grace MD, FACC /INF
[2017-10-16 16:39] VITALS: BP 121/58
--- NOTE | 2017-10-16 18:27 | NUR ---
PT IS A&O X4, WITH PERIODS OF FORGETFULNESS. PT RECEIVED TUBE FEEDINGS PER ORDER THROUGH SHIFT. PT UP WITH SBA AND BRP. PT ON 6L NC, BIPAP ORDERED FOR USE NOC. PT DENIES ANY COMPLAINTS OF PAIN OR DISCOMFORT. CXR ORDERED FOR THE MORNING. CARDIAC MONITORING IN PLACE. PULMONOLOGY CONSULTED. CALL LIGHT AND BELONGINGS WITHIN REACH. NEEDING SPUTUM SAMPLE, SPECIMEN CONTAINER IN ROOM WITH PT. PT COMMUNICATED UNDERSTANDING OF USE. WILL CONTINUE TO MONITOR FOR REMAINDER OF SHIFT.
[2017-10-16 19:30] VITALS: BP 125/53
[2017-10-17] VITALS: BP 131/66
--- NOTE | 2017-10-17 03:08 | NUR ---
ASSUMED CARE OF PT AT 1900. PT IS ALERT AND ORIENTED. VSS. PERRLA. NO COMPLAINTS OF PAIN. UP WITH 1 ASSIST. PT IS ON 3 LITERS O2. PT REFUSES TO WEAR BIPAP. PT IS IN SINUS RYTHM ON THE TELEMETRY. PT IS RESTING COMFORTABLY IN BED. RESPIRATIONS ARE EVEN AND NONLABORED. WILL CONTINUE TO MONITOR PT.
[2017-10-17 04:00] VITALS: BP 127/56
[2017-10-17 05:36] LABS: ABSOLUTE LYMPHOCYTES 0.7 thou/uL (0.8-5.3); ABSOLUTE MONOCYTES 0.5 thou/uL (0.0-1.2); ABSOLUTE NEUTROPHILS 8.5 thou/uL (1.6-8.1); BASOPHILS 0.1 %; HEMATOCRIT 30.3 % (42.0-52.0); HEMOGLOBIN 9.9 gm/dL (14.0-18.0); LYMPHOCYTES 6.9 %; MCH 28.5 pg (26.0-34.0); MCHC 32.8 g/dL (28.0-37.0); MCV 87.1 fL (80.0-100.0); MONOCYTES 5.7 %; MPV 8.7 fl. (7.2-11.1); NUCLEATED RBCS 0 /100WBC; PLATELET COUNT* 202 thou/uL (150-400); POLYS 87.3 %; RBC 3.48 mil/uL (4.50-6.00); RDW-CV 15.5 % (10.5-14.5); WBC 9.7 thou/uL (4.0-11.0)
[2017-10-17 05:55] LABS: PHOSPHORUS* 3.1 mg/dL (2.5-4.9)
[2017-10-17 05:56] LABS: CALCIUM 9.3 mg/dL (8.5-10.1); CREATININE 1.1 mg/dL (0.6-1.3); MAGNESIUM 1.8 mg/dL (1.8-2.4); POTASSIUM 4.3 mmol/L (3.5-5.1); TOTAL BILIRUBIN 0.2 mg/dL (<0.1-1.0)
[2017-10-17 08:45] VITALS: BP 132/87
--- NOTE | 2017-10-17 10:00 | NUR ---
PT SITTING IN HIGH STALLINGS'S POSITION IN BED, ABLE TO COMMUNICATE NEEDS TO STAFF. A & O X4. VSS, PAIN 8/10, PRN PAIN MED GIVEN PER TUBE PER OCT. SR ON GAMING DIRECTOR. ASSESSMENT COMPLETE. MEDS GIVEN PER TUBE AFTER RESIDUAL CHECKED (<10 MLS). APPROX 150 MLS H2O USED WITH MED DELIVERY. CALL LIGHT AND NEEDED ITEMS IN REACH. ENCOURAGED PT TO CALL FOR ASSIST WITH AMBULATION.
--- NOTE | 2017-10-17 10:42 | NUR ---
Faxed referral to [facility] to review for trilogy.
[2017-10-17 11:12] LABS: IgA 250 mg/dL (61-437); IgG 1826 mg/dL (700-1600); IgM 255 mg/dL (20-172)
[2017-10-17 11:55] VITALS: BP 88/55
--- NOTE | 2017-10-17 12:13 | CON ---
[address] [address] CONSULTATION Name: ROGE KLEIN Room: [address] IN M.R.#: [id number] Admission: 10/15/17 Attend Phys: Hollis Armendariz Discharge: Date of : 46 Report #: [id number] THIS REPORT FOR: //name// CC: Mariella Bonds DATE OF SERVICE: 10/16/2017 CONSULT REQUESTED BY: Dr. Willoughby. 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 The patient also has a history of severe COPD, is on oxygen longterm. I have seen him in the office in the past. He is not on long-term therapy with a BiPAP or other positive airway pressure device. The patient has had recent admissions to this hospital with pulmonary infiltrates. He has a PEG tube. He is now n.p.o. He has again presented with similar symptoms, primarily shortness of breath and cough. He does sleep with the head elevated. He essentially has no other new complaints at this time. He answered to the negative for 12 questions for review of systems. PAST MEDICAL HISTORY: Severe COPD. Pulmonary function tests were done at our office and are in the paper chart. Tongue carcinoma stage III. There are 2 previous PET scans performed. The possibility that the patient has residual disease is not ruled out at this time, hypertension, type 2 diabetes, hyperlipidemia. The patient has had a J-tube as well as a PEG tube placed in the past. It is not known to me, which tube the patient has in place at this time. Hypertension, chronic back pain, diabetes, back surgery. There is a questionable history of lung cancer mentioned in the chart; however, there is no definite information in this regard. It appears more likely that the patient has tongue cancer and not lung cancer. CURRENT MEDICATIONS: List in [facility] reviewed. Home medication list also in [facility] reviewed. Note that the patient recently received Augmentin. SOCIAL HISTORY: The patient was a smoker, more than a pack a day for several decades, discontinued in the last few months. There is a history of heavy alcohol use in the past; however, he discontinued many years ago. No known history of drug use. FAMILY HISTORY: Noncontributory. ALLERGIES: THE PATIENT HAS HAD ALTERED MENTAL STATUS UPON TAKING PREDNISONE. THIS WAS A SIDE EFFECT AND NOT AN ALLERGY. PHYSICAL EXAMINATION: [place] [address] CONSULTATION Name: ROGE KLEIN Room: [address]#: [id number] Admission: 10/15/17 Attend Phys: Hollis Armendariz Discharge: Date of : 46 Report #: [id number] GENERAL: Alert, awake and oriented, in no distress. VITAL SIGNS: Vitals in the records, reviewed, on 6 liters nasal cannula, narrow airway. No throat erythema. NECK: Does not show raised JVP. CHEST: Breath sounds decreased. Expirations prolonged. No added sounds. HEART: Regular, no murmur. ABDOMEN: Soft and nontender. There is a feeding tube in place. EXTREMITIES: Lower extremities, no edema, no calf tenderness. CT chest performed during last admission as well as now and chest x-rays are reviewed. The patient's blood work also in [facility] reviewed. Arterial blood gas in [facility] reviewed. ASSESSMENT AND PLAN: 1. Acute on chronic hypoxemic and hypercarbic respiratory failure. Noninvasive mechanical ventilation while asleep is required to slow the progression of his respiratory failure and eventual . Therefore, recommend arranging a Trilogy device for use while asleep, which is required longterm. We will continue with oxygen until the Trilogy is arranged. We will place him on a BiPAP while asleep. 2. Aspiration pneumonia. He is n.p.o. He has a feeding tube. He is already keeping his head elevated. Considering his recent use of Augmentin, I changed his antibiotics to Levaquin and Flagyl. More cultures are also ordered. 3. Chronic obstructive pulmonary disease exacerbation. Despite history of altered mental status as mentioned above, benefit is greater than risk of giving him steroid; therefore, Solu-Medrol is ordered; however, chosen a relatively low dose. 4. Tongue cancer. I feel that at some point, he will need a followup CT neck, may need a PET scan as well. We will see how he does. I did not order one for today. 5. Gastrointestinal prophylaxis/suspected gastroesophageal reflux disease. I ordered a proton pump inhibitor. 6. Deep vein thrombosis prophylaxis. If no contraindications, then consider Lovenox. Thanks for this consultation. <ELECTRONICALLY SIGNED> By: Paramjit Zarate MD 10/17/17 1213 1224 [id number] Zarate MD /nt
--- NOTE | 2017-10-17 15:30 | NUR ---
BOLUS TUBE FEEDING STARTED AT 1400 AFTER RESIDUAL CHECKED (30 MLS). TUBE FLOWS SLOW, 1 CAN ISO SOURCE 1.5 GIVEN, 250 MLS H20 FLUSH GIVEN. ALLOWED PT TO REST FOR 1 HOUR, THEN RESUMED BOLUS TUBE FEEDING, 2ND CAN GIVEN WITH FLUSH. PT ENRIQUE WELL.
[2017-10-17 16:00] VITALS: BP 126/54
--- NOTE | 2017-10-17 18:00 | NUR ---
WENT TO ROOM TO GIVE PT MEDICATIONS, PT REQUESTED LAST CAN OF TUBE FEEDING. 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 MEDICATIONS GIVEN AT THIS TIME BUT NOT ISO SOURCE FEEDING. EDUCATION GIVEN TO PT R/T ALLOWING STOMACH CONTENTS TO DIGEST AND ACCEPT TUBE FEEDING LATER THIS EVENING. PT AGREEABLE.
[2017-10-17 20:00] VITALS: BP 127/59
--- NOTE | 2017-10-17 22:00 | NUR ---
RECIEVED REPORT AND ASSUMED CARE OF PATIENT AT 1930. NUTRITION TECHNICIAN IN PLACE TRACING SR. ASSESSMENT AND VITALS COMPLETED CHARTED, VSS. PATIENT ON 3L O2 NC WITH SATS 97%. PATIENT HAS C/O PAIN IN BACK AND LEGS, HOWEVER, PAIN MEDICATION NOT DUE AT THIS TIME. PATIENT OFFERED COLD AND HEAT APPLICATION, PATIENT REFUSES. UPON GIVING PATIENT HIS HS TUBE FEEDING BOLUS, PATIENT STATES HE HAD ALREADY RECIEVED HIS EVENING BOLUS, IN WHICH THE DAY RN HAD STATED WAS HELD DUE TO RESIDUAL >180. CLARIFIED WITH PATIENT AND PATIENT WAS ADAMANT THAT HE DID NOT NEED A BOLUS. RESIDUAL <5 WITH MEDICATION ADMINISTRATION. CALL LIGHT WITHIN REACH.
[2017-10-18] VITALS: BP 136/59
--- NOTE | 2017-10-18 00:59 | NUR ---
PATIENT'S O2 SAT FOUND TO BE 85% AT MIDNIGHT VITALS. O2 TUBING WAS NOT CONNECTED TO WALL, ALTHOUGH PATIENT HAD THE CANNULA IN HIS NOSE. ONCE PATIENT PLACED BACK ON 3L, O2 SATS IMPROVED TO 93%.
[2017-10-18 04:12] VITALS: BP 143/67
--- NOTE | 2017-10-18 04:22 | NUR ---
PATIENT PARTIALLY PROGRESSING TOWARDS GOALS: O2 SATS MAINTAINED >92% ON 3L O2 NC, HOWEVER, PATIENT CONTINUES TO REFUSE BIPAP DESPITE EDUCATION AND ENCOURAGEMENT. PATIENT RESTED ON AND OFF THIS SHIFT BUT DID NOT GET MUCH SOLID SLEEP DESPITE PROMOTION OF A QUIET AND DARK ENVIRONMENT
[2017-10-18 04:42] LABS: HEMATOCRIT 30.3 % (42.0-52.0); MCH 28.6 pg (26.0-34.0); MCHC 33.1 g/dL (28.0-37.0); MCV 86.4 fL (80.0-100.0); MPV 8.7 fl. (7.2-11.1); RBC 3.51 mil/uL (4.50-6.00); RDW-CV 16.1 % (10.5-14.5); WBC 10.1 thou/uL (4.0-11.0)
[2017-10-18 05:05] LABS: CALCIUM 9.2 mg/dL (8.5-10.1); CREATININE 1.2 mg/dL (0.6-1.3); MAGNESIUM 1.6 mg/dL (1.8-2.4); POTASSIUM 4.2 mmol/L (3.5-5.1)
--- NOTE | 2017-10-18 09:13 | NUR ---
Hima lopezievered Pt's triology last evening and Pt declined it. CM provided Pt with a skilled list.
[2017-10-18 12:16] VITALS: BP 128/67
[2017-10-18 13:30] VITALS: BP 128/67
--- NOTE | 2017-10-18 13:31 | NUR ---
Pt discharging to home today with [facility]. Faxed dc orders. Family will transport
[2017-10-18] MEDS ORDERED: PREDNISONE 10 M10 M1 PER TUBE (14:57)
[2017-10-18] MEDS ORDERED: LEVAQUIN 750 M750 MG PER TUBE (15:02)
[2017-10-18 15:05] VITALS: BP 128/67
--- NOTE | 2017-10-18 17:00 | NUR ---
PT WITH DC ORDER COMPLETE. DC INSTRUCTIONS AND MED LIST REVIEWED WITH PT/SPOUSE. ANSWERED QUESTIONS TO THEIR SATISFACTION. IV AND ZIPPER SETTER LOCKSTITCH DC'D. PT IN POSSESSION OF ALL BELONGINGS. PT LEFT UNIT VIA WC WITH NURSING STAFF. SPOUSE TO TRANSPORT HOME VIA PERSONAL VEHICLE WITH HOME HEALTH ORDERS.
[2017-10-21 07:05] LABS: GLOBULIN TOTAL 4.2 g/dL (2.2-3.9); M-SPIKE Not Observed g/dL (Not Observed)
== END 2017-10-18 17:50 | disposition home health service (06) | DRG 177 ==
LOC: M.ERS 15:48 → M.2W 17:26 → M.TBA-ER 17:26 → M.2W 19:03
PROVIDERS: Emergency Medicine Emergency Medical Services; Family Medicine; Internal Medicine Critical Care Medicine; ADMIT Internal Medicine
DX: J69.0 Pneumonitis due to inhalation of food and vomit (principal); J96.21 Acute and chronic respiratory failure with hypoxia; J96.22 Acute and chronic respiratory failure with hypercapnia; G93.41 Metabolic encephalopathy; J44.1 Chronic obstructive pulmonary disease with (acute) exacerbation; I50.30 Unspecified diastolic (congestive) heart failure; E11.9 Type 2 diabetes mellitus without complications; G89.29 Other chronic pain; M54.9 Dorsalgia, unspecified; C02.9 Malignant neoplasm of tongue, unspecified; D89.2 Hypergammaglobulinemia, unspecified; I11.0 Hypertensive heart disease with heart failure; J15.6 Pneumonia due to other Gram-negative bacteria; Z85.118 Personal history of other malignant neoplasm of bronchus and lung; Z88.8 Allergy status to other drugs, medicaments and biological substances; Z87.891 Personal history of nicotine dependence

== ENCOUNTER → 2017-12-11 | Outpatient (CLI) | payer OTHER ==
[~2017-12-11] MED LIST changes: +CLARITIN10 MG PER TUBE; +LASIX 20 MG TAB20 MG PO; +LEVAQUIN 750 M750 MG PER TUBE; +LEVAQUIN 750 M750 MG PO; +NORVASC5 MG PO; +PREDNISONE 10 M10 M1 PER TUBE; +SINGULAIR 10 MG10 M1 PER TUBE; +VENTOLIN HFA 1818 GM INH; +ZYVOX600 MG PO
== END ==
LOC: M.RAD 10:00
DX: R13.12 Dysphagia, oropharyngeal phase (principal); J69.0 Pneumonitis due to inhalation of food and vomit; Z85.810 Personal history of malignant neoplasm of tongue

== ENCOUNTER 2018-01-25 10:26 | Inpatient (IN) | payer OTHER ==
[~2018-01-25] VITALS: Ht 182.9 cm; Wt 79.4 kg
[~2018-01-25 10:26] MED LIST changes: -CLARITIN10 MG PER TUBE; -LASIX 20 MG TAB20 MG PO; -LEVAQUIN 750 M750 MG PO; -NORVASC5 MG PO; -SINGULAIR 10 MG10 M1 PER TUBE; -VENTOLIN HFA 1818 GM INH; -ZYVOX600 MG PO
[2018-01-25 10:28] VITALS: BP 126/62
[2018-01-25 11:04] LABS: HEMATOCRIT 35.4 % (42.0-52.0); HEMOGLOBIN 11.8 gm/dL (14.0-18.0); MCH 29.6 pg (26.0-34.0); MCHC 33.4 g/dL (28.0-37.0); MCV 88.9 fL (80.0-100.0); MPV 8.7 fl. (7.2-11.1); NUCLEATED RBCS 0 /100WBC; PLATELET COUNT* 132 thou/uL (150-400); RBC 3.99 mil/uL (4.50-6.00); RDW-CV 15.3 % (10.5-14.5); WBC 18.7 thou/uL (4.0-11.0)
[2018-01-25 11:11] LABS: ANION GAP 8 mmol/L (7-16); BUN 38 mg/dL (7-18); CALCIUM 8.9 mg/dL (8.5-10.1); CHLORIDE 96 mmol/L (98-107); CO2 32 mmol/L (21-32); CREATININE 1.1 mg/dL (0.6-1.3); GLUCOSE 232 mg/dL (70-99); INR 1.1; POTASSIUM 4.1 mmol/L (3.5-5.1); SODIUM 136 mmol/L (136-145)
[2018-01-25 11:22] LABS: ALBUMIN 3.2 g/dL (3.4-5.0); LIPASE 43 U/L (73-393); NT-PRO BRAIN NAT PEPTIDE 178 pg/mL (<300); SGOT 14 U/L (15-37); SGPT 23 U/L (30-65); TOTAL BILIRUBIN 0.3 mg/dL (<0.1-1.0); TROPONIN-I LEVEL <0.06 ng/mL (<0.06)
[2018-01-25 11:38] LABS: ALKALINE PHOSPHATASE 74 U/L (46-116); TOTAL PROTEIN 7.4 g/dL (6.4-8.2)
[2018-01-25 11:43] LABS: ABSOLUTE EOSINOPHILS 0.2 thou/uL (0.0-0.7); ABSOLUTE LYMPHOCYTES 0.4 thou/uL (0.8-5.3); ABSOLUTE MONOCYTES 0.2 thou/uL (0.0-1.2); PLATELET ESTIMATE ADEQUATE
[2018-01-25 13:27] LABS: URINE BILIRUBIN NEGATIVE (Negative); URINE BLOOD NEGATIVE (Negative); URINE CLARITY CLEAR; URINE COLOR YELLOW; URINE GLUCOSE-RANDOM NEGATIVE (Negative); URINE KETONES NEGATIVE (Negative); URINE LEUKOCYTES-REFLEX NEGATIVE (Negative); URINE NITRITE-REFLEX NEGATIVE (Negative); URINE PROTEIN NEGATIVE (Negative); URINE UROBILINOGEN 0.2 E.U./dl (0.2-1.0)
[2018-01-25 13:38] LABS: MAGNESIUM 1.4 mg/dL (1.8-2.4)
[2018-01-25 14:57] VITALS: BP 120/57
--- NOTE | 2018-01-25 15:56 | NUR ---
pt to room from ER, appears alert o x4, denies chest pain, sob, pain or discomfort, on o2 at 3l per nc, states is home o2 rate
[2018-01-25 16:15] VITALS: BP 125/60
[2018-01-25 18:21] VITALS: BP 125/60
[2018-01-25 20:00] VITALS: BP 136/55
--- NOTE | 2018-01-25 22:21 | NUR ---
PATIENT FOUND SLEEPING WITH O2 LEVELS IN 80'S. OXYGEN INCREASED TO 5 LITERS HIGH FLOW. OXYGEN LEVEL RETURN TO 94%.
--- NOTE | 2018-01-25 23:34 | NUR ---
PATIENT'S ALPRAZOLAM WAS GIVEN BY PEG TUBE. PATIENT TOLERATED WELL.
[2018-01-26] VITALS: BP 115/52
[2018-01-26 04:00] VITALS: BP 123/53
[2018-01-26 04:48] LABS: HEMATOCRIT 33.1 % (42.0-52.0); HEMOGLOBIN 10.8 gm/dL (14.0-18.0); MCH 29.6 pg (26.0-34.0); MCHC 32.5 g/dL (28.0-37.0); MCV 91.1 fL (80.0-100.0); MPV 9.2 fl. (7.2-11.1); RBC 3.63 mil/uL (4.50-6.00); RDW-CV 15.3 % (10.5-14.5); WBC 13.6 thou/uL (4.0-11.0)
[2018-01-26 05:33] LABS: ALBUMIN 2.9 g/dL (3.4-5.0); CALCIUM 8.2 mg/dL (8.5-10.1); MAGNESIUM 1.8 mg/dL (1.8-2.4); POTASSIUM 4.3 mmol/L (3.5-5.1); TOTAL BILIRUBIN 0.5 mg/dL (<0.1-1.0); TOTAL PROTEIN 6.3 g/dL (6.4-8.2)
--- NOTE | 2018-01-26 05:33 | NUR ---
PATIENT RESTED IN BED. PATIENT O2 INCREASE TO 2 LITERS. PATIENT DID NOT COMPLAIN OF CHEST PAIN OR SOB. PATIENT DID NOT SHOW SINGS OF DISTRESS. FALL PRECAUTIONS IN PLACE, CALL LIGHT WITHIN REACH, HOURLY ROUNDING OBSERVED, BED ALARM ON.
[2018-01-26 08:00] VITALS: BP 160/55
--- NOTE | 2018-01-26 08:30 | NUR ---
RECEIVED REPORT FROM LORNE GARZA. PATIENT IS AXOX4, ASSESSMENT CHARTED, PAIN PRESENT AT THIS TIME, NO NAUSEA OR SHORTNESS OF AIR. NPO UNTIL SPEECH EVALUATION, PILLS THROUGH PEG TUBE. PATIENT CONTINUALLY STATES HE IS GOING HOME TONIGHT, SAYS HE HAS A LUNG DOCTOR APPT TOMORROW FOR A SECOND OPINION AND HAS TO GO TO THAT AND CANNOT RESCHEDULE IT. EXPLAINED TO HIM THAT HE JUST GOT TO THE HOSPITAL YESTERDAY AND THAT ONE DAY IS NOT ENOUGH TO GET BETTER JUST BECAUSE HE FEELS BETTER TODAY FROM YESTERDAY. WILL SPEAK WITH DOCTOR WHEN HE ROUNDS. BED IN LOWSEST POSITION, CALL LIGHT IN REACH, INSULATION MECHANIC IN PLACE. WILL CONTINUE TO MONITOR.
[2018-01-26] MEDS ORDERED: PREDNISONE 10 M10 M1 PER TUBE (09:43)
[2018-01-26] MEDS ORDERED: CLARITIN10 MG PER TUBE (09:43)
[2018-01-26] MEDS ORDERED: METFORMIN HCL500 MG PER TUBE (09:46)
[2018-01-26] MEDS ORDERED: SINGULAIR 10 MG10 M1 PER TUBE (09:48)
--- NOTE | 2018-01-26 11:12 | EKG ---
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 Porter: : 1950 Requested By: Raffi Matta Order Number: [id number] MD: Bakari Alaniz Measurements Intervals [place] Rate: 100 P: 19 [place]: 135 QRS: 1 QRSD: 80 T: 18 QT: 327 QTc: 422 Interpretive Statements Sinus tachycardia with pac's Borderline low voltage, extremity leads artifact noted Compared to ECG 10/15/2017 16:10:13 ST (T wave) deviation still present Electronically Signed On 01-26-2018 11:12:17 CDT by Bakari Alaniz [email or web address] <ELECTRONICALLY SIGNED> By: Bakari Alaniz MD, [facility] 01/26/18 1112 1043 1043 Bakari Alaniz MD, [facility] /EPI
--- NOTE | 2018-01-26 11:20 | NUR ---
PATIENT IS BACK FROM MRI.
--- NOTE | 2018-01-26 11:59 | NUR ---
Pt out of the room at MRI, spoke with Pt's at bedside. Pt is A&O. Independent with ADLs, continues to drive, completes cooking and cleaning. Pt wears home o2 through [employer]. Pt was approved for a trilogy during his last hospital stay, but declined it. Pt uses home neb 4x/day. Hx of [facility], ST just stopped last Friday, Pt to have a video swallow, to determine if he needs continued ST, if so, ok to resume [facility]. No hx of snf. Goal is to return home at [place]. Following.
[2018-01-26 12:27] VITALS: BP 122/54
[2018-01-26 15:53] VITALS: BP 130/55
--- NOTE | 2018-01-26 18:48 | NUR ---
PATIENT IS PROGRESSING TOWARDS GOALS, NO PAIN, NAUSEA OR SHORTNESS, HE WILL DISCHARGE IN THE AM, DR MARTINEZ NEEDS TO ORDER A PO ANTIBIOTIC BEFORE HE LEAVES AND DR OSEGUERA WILL SEE HIM FIRST IN THE AM. TOLERATED PEG TUBE FEEDS TODAY. BED IN LOWEST POSITION, CALL LIGHT IN REACH, WILL CONTINUE TO [facility].
[2018-01-26 20:00] VITALS: BP 127/60
[2018-01-27] VITALS: BP 158/56
--- NOTE | 2018-01-27 02:55 | NUR ---
DOCTOR MICHELLE NOTIFIED OF PATIENT'S BLOOD SUGAR, SEE ORDERS. DOCTOR MICHELLE ALSO NOTIFIED OF PATIENT'S COMPLAINT OF PAIN, SEE ORDERS.
[2018-01-27 04:00] VITALS: BP 113/53
--- NOTE | 2018-01-27 05:15 | NUR ---
PATIENT RESTED IN BED, NO ACUTE CHANGES. PATIENT DID NOT SHOW SIGNS OF DISTRESS. FALL PRECAUTIONS IN PLACE, BED ALARM ON, CALL LIGHT WITHIN REACH, HOURLY ROUNDING OBSERVED.
--- NOTE | 2018-01-27 07:11 | CON ---
[address] [address] CONSULTATION Name: ROGE KLEIN Room: [address] IN M.R.#: [id number] Admission: 01/25/18 Attend Phys: Dilia Moreira MD Discharge: Date of : 46 Report #: [id number] THIS REPORT FOR: //name// CC: Dilia [place] DATE OF SERVICE: 01/26/2018 INFECTIOUS DISEASE CONSULTATION ATTENDING PHYSICIAN: Dr. Moreira. REASON FOR EVALUATION: Febrile illness associated with productive cough. The patient had a history of head and neck carcinoma. HISTORY OF PRESENT ILLNESS: Chart reviewed, patient examined. This is a 67-year-old with history of base of the tongue cancer, has undergone chemotherapy and radiation in 2017. He has issue with swelling, has typically had history lung cancer as well as diabetes and hypertension, who was admitted with some progressive dyspnea associated with productive cough and was noted to have fevers. Evaluation noted some residual associated mass with the left neck. Chest x-ray was somewhat equivocal. Blood cultures collected at the time of admission are sterile thus far. Lactic acid was elevated at 2.6 and now has trended down to 1.1. White count elevated at 18.7 initially, repeat was 13.6. He was empirically started on combination therapy with piperacillin, tazobactam as well as vancomycin. ALLERGIES: PREDNISONE. CURRENT MEDICATIONS: Include atorvastatin, alprazolam, Zosyn, vancomycin, enoxaparin, ipratropium and albuterol inhaler, pantoprazole, hydrocodone, amlodipine. PAST MEDICAL HISTORY: As described above, hypertension, some chronic back pain, diabetes, cancer of base of the tongue and history of lung cancer. SOCIAL HISTORY: Former smoker. No ethanol, no illicit drug use. FAMILY HISTORY: Noncontributory. REVIEW OF SYSTEMS: As above. PHYSICAL EXAMINATION: GENERAL: Appears chronically ill, undernourished, is pleasant and cooperative, is in [id number] distress. VITAL SIGNS: Temperature 97.9 with a T-max of 100.2, pulse 70, respirations 18, [place] [address] CONSULTATION Name: ROGE KLEIN SORIN Room: [address] IN [facility]#: [id number] Admission: 01/25/18 Attend Phys: Dilia Moreira MD Discharge: Date of : 46 Report #: [id number] blood pressure 160/55. SKIN: Warm and dry. HEENT: Unremarkable. NECK: Supple. LUNGS: Left basilar crackles. HEART: Regular. ABDOMEN: Soft. There are no overt peritoneal signs. GENITOURINARY AND RECTAL: Deferred. LABORATORY DATA: As described above. Most recent electrolytes, sodium 142, potassium 4.3, chloride 104, bicarbonate is 32, anion gap of 6, BUN and creatinine 28 and 1.0, glucose of 28. AST of 16, ALT of 20, albumin 2.9, total protein 6.3. Lactic acid 1.1. CBC: White count 13.6, H 10.8 and 33.1, platelets of 120. CT of the neck as noted above, diminished mass. No cervical adenopathy. Urinalysis is otherwise unremarkable. ASSESSMENT: Febrile illness associated with elevation of lactic acid, certainly could have an early sepsis. Certainly at risk, would worry about the respiratory tract upper and lower at this point. We will continue empiric therapy, ongoing evaluation of possible mass on CT of the head and is scheduled for MRI. We will await pending studies and monitor expectantly. <ELECTRONICALLY SIGNED> By: Zachary Peres MD 01/27/18 0711 1121 [id number] Peres MD /nt
[2018-01-27 08:00] VITALS: BP 137/56
--- NOTE | 2018-01-27 10:08 | NUR ---
ASSUMED CARE OF PT AT 0730. PT RESTING IN BED. FAMILY AT BEDSIDE. PT A&0X4, PT IS EAGER TO GO HOME THIS AM. PT DENIES ANY PAIN OR SHORTNESS OF BREATH AT THIS TIME. TRACING SR ON THE TURBINE TECHNICIAN. VSS. PT ON 3L NC SAT 96%. PT UP WITH 1 ASSIST TO BATHROOM WITH WALKER. PT REQUESTED TO ONLY RECEIVE 1 CAN OF TUBE FEEDINGS THIS AM PT HAS A LOT TO DO TODAY AND AN APPT AND NOT SURE WHAT WILL HAPPEN AT APPT. FEEDING COMPLETED WITH NO COMPLICATIONS. NO RESUDUAL NOTED. AM ASSESSMENT CHARTED. MEDICATIONS PER MAR IN PEG TUBE. PT REPOSITIONS SELF. HOURLY ROUNDING OBSERVED. BED IN LOW POSITION. BED ALARM IN PLACE. FALL PRECAUTIONS IN PLACE. CALL LIGHT WITHIN REACH. WILL CONTINUE PLAN OF CARE.
[2018-01-27 10:17] VITALS: BP 137/56
[2018-01-27 10:30] VITALS: BP 137/56
[2018-01-27] MEDS ORDERED: LEVAQUIN 750 M750 MG PO (10:36)
--- NOTE | 2018-01-27 10:52 | NUR ---
DISCHARGE ORDERS RECEIVED. DISCHARGE INSTRUCTIONS, CARE NOTES, SCRIPT AND FOLLOW UP APPTS TO PT. PT COMMUNICATES UNDERSTANDING OF DISCHARGE TEACHING. IV AND STORAGE ARCHITECT REMOVED. PT DISCHARGED TO HOME WITH HOME HEALTH WITH ALL BELONGINGS AND PAPERWORK VIA WHEELCHAIR WITH VOLUNTEER STAFF TO SPOUSE OWN PERSONAL VEHICLE.
== END 2018-01-27 11:05 | disposition home health service (06) | DRG 871 ==
LOC: M.ERS 10:26 → M.TBA-ER 12:12 → M.2W 12:12
PROVIDERS: Emergency Medicine; Family Medicine; ADMIT Internal Medicine
DX: A41.9 Sepsis, unspecified organism (principal); J69.0 Pneumonitis due to inhalation of food and vomit; J96.21 Acute and chronic respiratory failure with hypoxia; E87.2 Acidosis; E11.9 Type 2 diabetes mellitus without complications; E86.0 Dehydration; I10 Essential (primary) hypertension; G89.29 Other chronic pain; M54.9 Dorsalgia, unspecified; Z93.1 Gastrostomy status; Z85.810 Personal history of malignant neoplasm of tongue; Z88.8 Allergy status to other drugs, medicaments and biological substances; Z87.891 Personal history of nicotine dependence; Z85.118 Personal history of other malignant neoplasm of bronchus and lung; Z79.2 Long term (current) use of antibiotics; Z79.899 Other long term (current) drug therapy

== ENCOUNTER 2018-02-08 19:34 | Inpatient (IN) | payer OTHER ==
[~2018-02-08] VITALS: Ht 180.3 cm; Wt 78.5 kg
[~2018-02-08 19:34] MED LIST changes: +CLARITIN10 MG PER TUBE; +LEVAQUIN 750 M750 MG PO; +SINGULAIR 10 MG10 M1 PER TUBE
[2018-02-08 19:35] VITALS: BP 126/64
[2018-02-08 20:02] LABS: HEMATOCRIT 37.5 % (42.0-52.0); HEMOGLOBIN 12.4 gm/dL (14.0-18.0); MCH 29.3 pg (26.0-34.0); MCV 88.8 fL (80.0-100.0); MPV 7.9 fl. (7.2-11.1); NUCLEATED RBCS 0 /100WBC; PLATELET COUNT* 183 thou/uL (150-400); RBC 4.22 mil/uL (4.50-6.00); RDW-CV 15.1 % (10.5-14.5); WBC 31.7 thou/uL (4.0-11.0)
[2018-02-08 20:16] LABS: ANION GAP 6 mmol/L (7-16); BUN 37 mg/dL (7-18); CALCIUM 9.4 mg/dL (8.5-10.1); CHLORIDE 95 mmol/L (98-107); CO2 32 mmol/L (21-32); CREATININE 1.3 mg/dL (0.6-1.3); GLUCOSE 161 mg/dL (70-99); POTASSIUM 4.9 mmol/L (3.5-5.1); SODIUM 133 mmol/L (136-145)
[2018-02-08 20:18] LABS: INR 1.2; PROTIME 11.6 Seconds (9.20-11.50)
[2018-02-08 20:27] LABS: ALBUMIN 3.6 g/dL (3.4-5.0); ALKALINE PHOSPHATASE 70 U/L (46-116); LIPASE 41 U/L (73-393); NT-PRO BRAIN NAT PEPTIDE 426 pg/mL (<300); SGOT 29 U/L (15-37); SGPT 30 U/L (30-65); TOTAL BILIRUBIN 0.6 mg/dL (<0.1-1.0); TOTAL PROTEIN 8.5 g/dL (6.4-8.2); TROPONIN-I LEVEL <0.06 ng/mL (<0.06)
[2018-02-08 20:36] LABS: ABSOLUTE LYMPHOCYTES 1.9 thou/uL (0.8-5.3); ABSOLUTE MONOCYTES 1.9 thou/uL (0.0-1.2); ABSOLUTE NEUTROPHILS 27.9 thou/uL (1.6-8.1); METAMYELOCYTES 1 %; PLATELET ESTIMATE ADEQUATE
[2018-02-08 21:02] LABS: BE 1.5 mmol/L (-2 to +3); HCO3 27.1 mmol/L (22.0-26.0); PCO2 46.9 mmHg (35.0-45.0); pH 7.379 (7.340-7.450)
[2018-02-08 21:06] LABS: PO2 272.2 mmHg (75.0-100.0)
[2018-02-08 22:00] VITALS: BP 113/46
[2018-02-08 22:07] LABS: URINE BILIRUBIN NEGATIVE (Negative); URINE BLOOD NEGATIVE (Negative); URINE CLARITY CLEAR; URINE COLOR YELLOW; URINE GLUCOSE-RANDOM NEGATIVE (Negative); URINE KETONES NEGATIVE (Negative); URINE LEUKOCYTES-REFLEX NEGATIVE (Negative); URINE NITRITE-REFLEX NEGATIVE (Negative); URINE PROTEIN TRACE (Negative); URINE UROBILINOGEN 0.2 E.U./dl (0.2-1.0)
[2018-02-08 22:30] VITALS: BP 113/53
--- NOTE | 2018-02-09 00:13 | NUR ---
RECEIVED REPORT AND PT TO ROOM 220 AT 2220. ON BIPAP AT 40% FIO2 WITH RESP 24. O2 SAT 91%. AT BEDSIDE ASSISTING WITH ADMISSION. SEE ASSESSMENT AND HX. TELEMETRY APPLIED SHOWING SR. WILL CONT TO MONITOR AND ASSIST NEEDED.
[2018-02-09 04:02] VITALS: BP 118/63
[2018-02-09 04:51] LABS: HEMATOCRIT 32.1 % (42.0-52.0); HEMOGLOBIN 10.5 gm/dL (14.0-18.0); MCH 29.4 pg (26.0-34.0); MCHC 32.7 g/dL (28.0-37.0); MCV 89.9 fL (80.0-100.0); MPV 8.2 fl. (7.2-11.1); RBC 3.57 mil/uL (4.50-6.00); RDW-CV 14.9 % (10.5-14.5)
[2018-02-09 05:20] LABS: WBC 40.3 thou/uL (4.0-11.0)
[2018-02-09 05:32] LABS: ALBUMIN 2.7 g/dL (3.4-5.0); CALCIUM 9.1 mg/dL (8.5-10.1); CREATININE 1.2 mg/dL (0.6-1.3); POTASSIUM 4.6 mmol/L (3.5-5.1); TOTAL BILIRUBIN 0.5 mg/dL (<0.1-1.0); TOTAL PROTEIN 6.5 g/dL (6.4-8.2)
--- NOTE | 2018-02-09 06:02 | NUR ---
SLEPT WELL. PT ABLE TO TURN HIMSELF IN BED WITH REMINDER. HAS NOT VOIDED SINCE ADMITTED TO ROOM. REMAINS ON BIPAP WITH INCREASED FIO2 TO 55%. IV FLUIDS INFUSING PER SEPSIS PROTOCOL. NO CHANGE IN ASSESSMENT. TELEMETRY SHOWING SR. HS GOALS OF REST AND SAFETY ACHIEVED. HOURLY ROUNDING OBSERVED.
--- NOTE | 2018-02-09 07:14 | NUR ---
PT WAS ABLE TO VOID 750 CC PER URINAL. PEG SITE CLEANED AND DRSG CHANGED. TUBE FEEDING BOLUS GIVEN AND TOLERATED WELL.
[2018-02-09 08:10] VITALS: BP 128/68
--- NOTE | 2018-02-09 10:01 | NUR ---
INITIAL ASSESSMENT: Pt evaluated for d/c planning needs. Reviewed chart and spoke with nurse. Pt lives in house with spouse and was independent with ADL's prior to admission. completes cooking and cleaning. Pt wears home o2 through [employer]. Pt was approved for a trilogy during previous hospital stay, but declined it. Pt uses home nebulizer. Pt is currently on service with [facility]. Notified [facility] of admission. Pt plans on returning home on d/c from hospital. Will remain available to assist as needed.
--- NOTE | 2018-02-09 10:38 | EKG ---
[place] [address] ELECTROCARDIOGRAM REPORT Name: ROGE KLEIN Room: [address] ADM IN .R.#: [id number] Admission: 02/08/18 Attend Phys: Jorje Isaac MD Discharge: Date of : 46 Report #: [id number] THIS REPORT FOR: //name// [facility] ED Test Date: 2018-02-08 Test Time: 19:39:36 Pat Name: ROGE KLEIN Department: Room: Gender: M Hair Assistant: 1 : 1950 Requested By: Rosalind Mata Order Number: [id number] MD: Bakari Alaniz Measurements Intervals [place] Rate: 121 P: 72 TN: 151 QRS: -25 QRSD: 77 T: 19 QT: 291 QTc: 413 Interpretive Statements Sinus tachycardia Borderline left axis deviation Borderline low voltage, extremity leads Artifact in lead(s) I,II,III,aVR,aVL,aVF and baseline wander in lead(s) V6 Compared to ECG 01/25/2018 10:43:32 No significant changes Electronically Signed On 02-09-2018 10:38:12 CDT by Bakari Alaniz [email or web address] <ELECTRONICALLY SIGNED> By: Bakari Alaniz MD, FACC 02/09/18 1038 38 38 Bakari Alaniz MD, FACC /EPI
--- NOTE | 2018-02-09 10:53 | NUR ---
RECEIVED REPORT FROM ROSEY AND ASSUMED CARE OF PT @ 6256.PT IS A/O,VSS,TRACING SR ON THE MONITOR.LUNG SOUNDS ARE COARSE.REMAINS ON BIPAP PER REQUEST.WHILE BIPAP IS OFF PT IS ON 12L O2 HIGH FLOW NC.LAST BM WAS 3 DAYS AGO.PT STATES HE IS CONSTIPATED.DR CONTACTED FOR STOOL SOFTENER ORDERS.IV RIGHT FOREARM PATENT WITH FLUIDS RUNNING @ 130ML/HR.IV LEFT AC PATENT AND SALINE LOCKED.PT IS CALM AND COOPERATIVE WITH NO C/O PAIN AT TIME OF ASSESSMENT.PT IS UP WITH ONE ASSIST TO BSC.CALL LIGHT AND FALL PRECAUTIONS IN PLACE. WILL CONTINUE TO MONITOR.NPO STATUS MAINTAINED.PT REFUSED ACCU CHECK THIS AM.
[2018-02-09 11:30] VITALS: BP 146/65
[2018-02-09 16:00] VITALS: BP 133/67
--- NOTE | 2018-02-09 18:22 | NUR ---
VSS,CARDIAC MONITORING IN PLACE WITH NO CHANGES THIS SHIFT.PT REMAINS ON 8L HIGH FLOW O2 NC.BIPAP NEEDED.PT PROGRESSING TOWARDS GOALS.PT C/O GENERALIZED PAIN, MESSAGE SENT TO CREDIT COLLECTIONS ANALYST TO RESUME HOME PAIN MEDICATIONS.IVF INFUSING.IV ANTIBIOTICS COMPLETED.PT NPO STATUS.PEG TUBE PATENT AND SECURE.BOLUS TUBE FEED COMPLETED.PT REFUSED MORNING AND AFTERNOON ACCU CHECKS.PT INFORMED OF PLAN OF CARE AND COMMUNICATES UNDERSTANDING.HOURLY ROUNDING COMPLETED FOR PT SAFETY.CALL LIGHT AND FALL PRECAUTIONS IN PLACE.WILL CONTINUE TO MONITOR FOR DURATION OF SHIFT.
[2018-02-09 19:45] VITALS: BP 148/66
--- NOTE | 2018-02-09 20:00 | NUR ---
RECEIVED REPORT AND ASSUMED CARE OF PT EARLIER, ASSESSMENT COMPLETED. PT GRUFF AND STATES HE IS READY TO LEAVE. LONG TALK WITH PT AND HE UNDERSTANDS THAT HIS PNEUMONIA IS WORSE THEN PREVIOUS TIMES AND NEEDS TO KEEP OXYGEN UP ALONG WITH NEED FOR ANTIBIOTICS. SITTING UPON SIDE OF BED, RT ADJUSTING OXYGEN DUE TO SAT OF 85%, WILL RE-EVALUATE ON 10 L/HFC. TELEMETRY ON SHOWING ST. VOIDING LG AMT PER URINAL. WILL CONT TO MONITOR AND ASSIST NEEDED.
[2018-02-10] VITALS: BP 141/71
--- NOTE | 2018-02-10 02:00 | NUR ---
PT ASKING FOR BLANKET, CHILLING. TEMP TAKEN, 102.7. PT REQUESTING PAIN MED AND ANXIETY MED. GIVEN ALONG WITH TYLENOL. PT BECAME NAUSEATED AND DRY HEAVING, ZOFRAN GIVEN. STATES HE FEELS BETTER ALREADY.
[2018-02-10 04:00] VITALS: BP 127/54
[2018-02-10 05:37] LABS: ABSOLUTE BASOPHILS 0.1 thou/uL (0.0-0.2); ABSOLUTE LYMPHOCYTES 0.4 thou/uL (0.8-5.3); ABSOLUTE MONOCYTES 0.7 thou/uL (0.0-1.2); ABSOLUTE NEUTROPHILS 25.9 thou/uL (1.6-8.1); BASOPHILS 0.5 %; HEMATOCRIT 29.3 % (42.0-52.0); HEMOGLOBIN 9.7 gm/dL (14.0-18.0); LYMPHOCYTES 1.5 %; MCH 29.4 pg (26.0-34.0); MCHC 32.9 g/dL (28.0-37.0); MCV 89.2 fL (80.0-100.0); MONOCYTES 2.7 %; MPV 8.7 fl. (7.2-11.1); NUCLEATED RBCS 0 /100WBC; PLATELET COUNT* 128 thou/uL (150-400); POLYS 95.3 %; RBC 3.29 mil/uL (4.50-6.00); RDW-CV 15.1 % (10.5-14.5); WBC 27.2 thou/uL (4.0-11.0)
[2018-02-10 05:45] LABS: CALCIUM 8.4 mg/dL (8.5-10.1); CREATININE 1.1 mg/dL (0.6-1.3); POTASSIUM 3.6 mmol/L (3.5-5.1)
--- NOTE | 2018-02-10 06:20 | NUR ---
AWAKE AND RESTLESS MOST OF NIGHT. INCREASINGLY CONFUSED WITH DECREASED OXYGEN. AT PRESENT TIME ON BIPAP WITH 60% FIO2. TEMP REMAINS ELEVATED AT 101.5 AXI. TYENOL GIVEN EARLIER. VOIDING PER URINAL. TELEMETRY SHOWING SR TO LOW ST. HOURLY ROUNDING OBSERVED. ACHIEVED HS GOALS OF SAFETY AND PARTICAL GOAL OF REST.
[2018-02-10 08:14] VITALS: BP 137/73
[2018-02-10 11:50] VITALS: BP 128/50
--- NOTE | 2018-02-10 14:12 | NUR ---
ASSUMED CARE OF PATIENT AFTER REPORT THIS MORNING. PATIENT AWAKE, ALERT, AND ORIENTED APPROPRIATELY. PHYSICAL ASSESSMENT COMPLETED AND CHARTED. COMPLAINED OF PAIN. GIVEN PRN AND SCHEDULED MEDICATIONS, CRUSHED, THROUGH PEG TUBE DISSOLVED IN WATER. VITAL SIGNS STABLE AT TIME OF ASSESSMENT THIS MORNING. OXYGEN SATURATION WITHIN NORMAL LIMITS ON BIPAP. PATIENT HAS ATTEMPTED TO USE NASAL CANULA AT 10-15 HIGH FLOW AND SATURATION DECREASES TO BELOW 90%. MOVED PATIENT TO HALLWAY DURING TORNADO WARNING THIS AFTERNOON AND USED NASAL CANULA AT 15 LPM WITH EXTENSION TUBING. PATIENT'S OXYGEN SATURATION DECREASED TO 77%. RESPIRATORY THERAPY NOTIFIED AND PATIENT HOOKED BACK UP TO BIPAP. OXYGEN SATURATION INCREASED BACK TO > 90%. PATIENT TURNS SELF IN BED. IV FLUIDS AND ANTIBIOTICS INFUSING ORDERED. USES CALL LIGHT APPROPRIATELY. DENIES NEEDS AT THIS TIME. CALL LIGHT WITHIN REACH. NURSING WILL CONTINUE TO MONITOR.
[2018-02-10 15:37] VITALS: BP 118/59
--- NOTE | 2018-02-10 18:21 | NUR ---
PATIENT REMAINS ALERT AND ORIENTED APPROPRIATELY. ON HIGH FLOW TOWER NOW AT 40 LPM AND 72% OXYGEN. SATTING > 90%. GIVEN PRN MEDICATIONS FOR PAIN AND ANXIETY, SEE EMAR FOR DOCUMENTATION. DENIES NEEDS AT THIS TIME. CALL LIGHT WITHIN REACH. NURSING WILL CONTINUE TO MONITOR.
[2018-02-10 19:55] VITALS: BP 113/57
[2018-02-11 00:03] VITALS: BP 119/59
[2018-02-11 04:00] VITALS: BP 132/60
--- NOTE | 2018-02-11 05:07 | NUR ---
PT AAOX4, NO ACUTE DISTRESS NOTED. HIGH FLOW O2 TOWER INTACT SETTINGS 40 L AND 83%, RESP HAS ADJUSTED % NEEDED. PT STATES HE NEEDS HIS ANXIETY MEDS AND PAIN MEDS MORE OFTEN. PT STATES AT HOME HE TAKES WHENEVER HE NEEDS. PT ANXIOUS AT TIMES. PT CAN BE SOB AT TIMES WITH EXERTION. TEMP HAS IMROVED TELEMETRY PACK INTACT WITH ALARMS SET, FAMILY AT BEDSIDE.PEG TUBE INTACT AND CLAMPED. PT TOLERATING BOLUS FEEDS. NO ACUTE CHANGES DURING SHIFT. WILL CONTINUE TO MONITOR
[2018-02-11 08:00] VITALS: BP 128/65
--- NOTE | 2018-02-11 11:00 | NUR ---
ASSUMED CARE OF PT AFTER REPORT AT 0730. PT A&OX4. VSS. PHYSICAL ASSESSMENT COMPLETED AND CHARTED. PT ON HIGH FLOW TOWER AT 40L. PT IV LINE AT RAC AND LAC PATENT AND INTACT. PT UP WITH 1 ASSIST. PT DOES NOT WANT HIS BLOOD SUGAR TO BE CHECKED AND DONT WANT HIS INSULIN TO BE GIVEN. EDUCATED BY NURSE AND AGREEABLE TO BLOOD SUGAR MONITORING AND INSULIN ADMINISTRATION. PT STATES "DONT WANT TO BE BOTHERED FOR THE REST OF THE DAY". CALL LIGHT WITHIN REACH. WILL CONTINUE TO MONITOR PT.
[2018-02-11 12:00] VITALS: BP 137/62
--- NOTE | 2018-02-11 12:12 | CON ---
[address] [address] CONSULTATION Name: ROGE KLEIN Room: [address] IN M.R.#: [id number] Admission: 02/08/18 Attend Phys: Jorje Isaac MD Discharge: Date of : 46 Report #: [id number] THIS REPORT FOR: //name// CC: Jorje [place] DATE OF SERVICE: 02/10/2018 INFECTIOUS DISEASE CONSULTATION ATTENDING PHYSICIAN: Jorje Isaac MD REASON FOR EVALUATION: Persistent fevers on treatment for multifocal pneumonitis. The patient had recent hospitalization for same. HISTORY OF PRESENT ILLNESS: Chart reviewed, patient examined. 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 He has undergone chemotherapy and radiation. He was actually hospitalized from to the with febrile illness, productive cough, associated lactic acidemia, felt to have some early sepsis. Chest x-ray showed some bibasilar atelectasis. He, however, over the course of the last few hours prior to admission, had progressive dyspnea with associated encephalopathy, low grade temperature elevations. Now he reports the cough is somewhat productive. Of note, he was started on broad spectrum antimicrobial therapy, specifically piperacillin/tazobactam, vancomycin and levofloxacin. In spite of that he actually had increased temperature high grade up to 102.9 earlier today. Hemodynamically, he is not overtly labile. He is maintained on BiPAP at this point. ALLERGIES: PREDNISONE. CURRENT MEDICATIONS: Include levofloxacin, methylprednisolone, vancomycin, montelukast, Zosyn, loratadine, amlodipine, atorvastatin, pantoprazole, alprazolam. PAST MEDICAL HISTORY: As described above, head and neck cancer post-chemoradiation, diabetes mellitus, hypertension, chronic back pain, and does have enteral feeding tube. SOCIAL HISTORY: Former smoker. No ethanol. FAMILY HISTORY: Noncontributory. REVIEW OF SYSTEMS: Somewhat limited as above. Denies significant [place] [address] CONSULTATION Name: ROGE KLEIN Room: [address] IN [facility].#: [id number] Admission: 02/08/18 Attend Phys: Jorje Isaac MD Discharge: Date of : 46 Report #: [id number] PHYSICAL EXAMINATION: GENERAL: He is in moderate distress secondary to respiratory difficulties. He does have the BiPAP in place. He is alert. He is tracking well. He seems to have appropriate responses. He is somewhat chronically ill-appearing. VITAL SIGNS: Most recent temperature 101.5 with a T-max earlier at 102.9, pulse 103, respirations 16, blood pressure 128/50. SKIN: Warm, dry. HEENT: Remarkable for the BiPAP. NECK: Supple. LUNGS: Scattered coarse breath sounds bilaterally. HEART: Borderline tachycardic, regular. I do not appreciate a murmur. ABDOMEN: Soft, nontender, nondistended. EXTREMITIES: No cyanosis. GENITOURINARY: Deferred. RECTAL: Deferred. LABORATORY DATA: Blood cultures sterile thus far. Prealbumin 16.3. Electrolytes: Sodium 141, potassium 3.6, chloride 105, bicarbonate is 27, anion gap of 9, BUN and creatinine of 25 and 1.1, estimated GFR of 66. CBC: White count of 27.2, actually down from 31.7 on admission, H and H 9.7 and 29.3, platelets of 128. Differential fairly unremarkable other than neutrophilia. CTA of the chest PE protocol, no evidence of PE, multifocal pneumonia with basilar prominence, left greater than right. Urinalysis unremarkable. Lactic acid 1.9. Plain film of the chest on admission did show the patchy consolidation of the left lower lobe. ASSESSMENT AND PLAN: Pneumonitis with now high grade fevers in spite of broad spectrum antimicrobial therapy. This was not necessarily the case when he was admitted, somewhat of a biphasic illness initially had defervesced to some degree and now it certainly raises question of additional diagnosis perhaps noninfectious causes of fever. It is difficult to ascertain whether he has been treated clinically. We will adjust the antimicrobial therapy at this point. Try to collect a sputum sample and see how he does clinically. Wean off support as allowed. Discussed with the patient's spouse. <ELECTRONICALLY SIGNED> By: Zachary Peres MD 02/11/18 1212 1230 [id number] Peres MD /nt
[2018-02-11 14:32] LABS: HEMATOCRIT 30.4 % (42.0-52.0); HEMOGLOBIN 9.8 gm/dL (14.0-18.0); MCH 29.2 pg (26.0-34.0); MCHC 32.3 g/dL (28.0-37.0); MCV 90.4 fL (80.0-100.0); MPV 8.3 fl. (7.2-11.1); NUCLEATED RBCS 0 /100WBC; PLATELET COUNT* 129 thou/uL (150-400); RBC 3.36 mil/uL (4.50-6.00); RDW-CV 15.4 % (10.5-14.5); WBC 16.7 thou/uL (4.0-11.0)
[2018-02-11 14:48] LABS: ALBUMIN 2.3 g/dL (3.4-5.0); CALCIUM 8.3 mg/dL (8.5-10.1); CREATININE 1.1 mg/dL (0.6-1.3); MAGNESIUM 1.7 mg/dL (1.8-2.4); POTASSIUM 3.8 mmol/L (3.5-5.1); TOTAL BILIRUBIN 0.3 mg/dL (<0.1-1.0); TOTAL PROTEIN 6.9 g/dL (6.4-8.2)
[2018-02-11 15:04] LABS: ABSOLUTE MONOCYTES 0.2 thou/uL (0.0-1.2); ABSOLUTE NEUTROPHILS 16.5 thou/uL (1.6-8.1); PLATELET ESTIMATE DECREASED
[2018-02-11 15:07] LABS: ANISOCYTOSIS Occasional; HYPOCHROMASIA Occasional; MICROCYTES Occasional; POLYCHROMASIA Occasional
[2018-02-11 16:00] VITALS: BP 155/68
--- NOTE | 2018-02-11 18:07 | 2DMMODE ---
[place] [address] 2 D/M-MODE ECHOCARDIOGRAM Name: ROGE KLEIN Room: [address] IN [facility]#: [id number] Admission: 02/08/18 Attend Phys: Jorje Isaac, Discharge: Date of : 46 Date of Service: 02/11/18 1806 Report #: [id number] THIS REPORT FOR: //name// APPROVED REPORT Study performed: 02/11/2018 13:37:22 EXAM: Comprehensive 2D, Doppler, and color-flow Echocardiogram Patient Location: In-Patient Room #: 220 Status: routine BSA: 1.94 HR: 96 bpm BP: 137/62 mmHg Rhythm: NSR Other Information Study Quality: Fair Indications COPD Sepsis Dyspnea Hypoxia 2D Dimensions IVSd: 7.88 (7-11mm) LVOT Diam: 20.13 (18-24mm) LVDd: 47.31 mm PWd: 8.72 (7-11mm) Ascending Ao: 30.73 (22-36mm) LVDs: 22.61 (25-40mm) Aortic Root: 29.37 mm Volumes Left Atrial Volume (Systole) LA ESV Index: 21.20 mL/m2 Aortic Valve AoV Peak Rciardo.: 1.28 m/s AO Peak Gr.: 6.59 mmHg LVOT Max P.10 mmHg AO Mean Gr.: 3.95 mmHg LVOT Mean P.84 mmHg LVOT Max V: 1.13 m/s AO V2 VTI: 25.23 cm LVOT Mean V: 0.78 m/s AIDAN (VTI): 3.22 cm2 LVOT V1 VTI: 25.52 [place] [address] 2 D/M-MODE ECHOCARDIOGRAM Name: ROGE KLEIN Room: [address] IN M.R.#: [id number] Admission: 02/08/18 Attend Phys: Jorje Isaac, Discharge: Date of : 46 Date of Service: 02/11/18 1806 Report #: [id number] E/A Ratio: 1.44 MV Decel. Time: 161.61 ms MV E Max Ricardo.: 1.30 m/s MV PHT: 46.87 ms MVA (PHT): 4.69 cm2 TDI E/Lateral E': 8.67 E/Medial E': 8.13 Medial E' Ricardo.: 0.16 m/s Lateral E' Ricardo.: 0.15 m/s Pulmonary Valve PV Peak Ricardo.: 1.15 m/s PV Peak Gr.: 5.31 mmHg Left Ventricle The left ventricle is normal size. There is normal LV segmental wall motion. There is normal left ventricular wall thickness. Left ventricular systolic function is normal. The left ventricular ejection fraction is within the normal range. LVEF is 60-65%. The left ventricular diastolic function is normal. Right Ventricle The right ventricle is normal size. The right ventricular systolic function is normal. Atria The left atrium size is normal. The right atrium size is normal. Aortic Valve The aortic valve is normal in structure. No aortic regurgitation is present. There is no aortic valvular stenosis. Mitral Valve The mitral valve is normal in structure. There is no mitral valve regurgitation noted. No evidence of mitral valve stenosis. Tricuspid Valve The tricuspid valve is normal in structure. Unable to assess PA pressure. Trace tricuspid regurgitation. Pulmonic Valve Pulmonic valve is not well visualized. There is no pulmonic valvular regurgitation[place] [address] 2 D/M-MODE ECHOCARDIOGRAM Name: ROGE KLEIN Room: [address] IN [facility]#: [id number] Admission: 02/08/18 Attend Phys: Jorje Isaac, Discharge: Date of : 46 Date of Service: 02/11/18 1806 Report #: [id number] The aortic root is normal in size. IVC is normal in size and collapses with >50% inspiration Pericardium There is no pericardial effusion. <Conclusion> Left ventricular systolic function is normal. The left ventricular ejection fraction is within the normal range. <ELECTRONICALLY SIGNED> By: Bakari Alaniz MD, FACC 02/11/181805 05 05 Bakari Alaniz MD, FAC /INF
--- NOTE | 2018-02-11 19:05 | NUR ---
PT A&OX4. PT ON HIGH FLOW TOWER AT 40L WITH 92% O2 SAT. ECHO DONE WITH 60-65% LVEF. CXR DONE WITH RESULT OF OF ACTELECTASIS WITH POSSIBLE SMALL PLEURAL EFFUSION-LASIX AND SPIRONOLACTONE GIVEN. FEEDING TOLERATED WELL.CALL LIGHT WITHIN REACH. WILL CONTINUE TO MONITOR PT.
--- NOTE | 2018-02-11 19:09 | NUR ---
THIS RN HAS REVIEWED AND AGREES WITH THE CHARTING, ASSESMENT AND NOTES OF HOLLY PRADHAN.
[2018-02-11 20:18] VITALS: BP 143/73
[2018-02-12] VITALS: BP 145/68
[2018-02-12 04:00] VITALS: BP 127/61
[2018-02-12 04:59] LABS: ABSOLUTE LYMPHOCYTES 0.1 thou/uL (0.8-5.3); ABSOLUTE MONOCYTES 0.4 thou/uL (0.0-1.2); ABSOLUTE NEUTROPHILS 14.5 thou/uL (1.6-8.1); BASOPHILS 0.2 %; HEMATOCRIT 30.1 % (42.0-52.0); HEMOGLOBIN 9.9 gm/dL (14.0-18.0); LYMPHOCYTES 0.8 %; MCH 29.3 pg (26.0-34.0); MCHC 32.9 g/dL (28.0-37.0); MCV 89.1 fL (80.0-100.0); MONOCYTES 2.5 %; MPV 8.6 fl. (7.2-11.1); NUCLEATED RBCS 0 /100WBC; PLATELET COUNT* 136 thou/uL (150-400); POLYS 96.5 %; RBC 3.38 mil/uL (4.50-6.00); RDW-CV 15.2 % (10.5-14.5)
[2018-02-12 05:13] LABS: ALBUMIN 2.3 g/dL (3.4-5.0); CALCIUM 8.7 mg/dL (8.5-10.1); CREATININE 1.2 mg/dL (0.6-1.3); MAGNESIUM 2.2 mg/dL (1.8-2.4); POTASSIUM 3.8 mmol/L (3.5-5.1); TOTAL BILIRUBIN 0.3 mg/dL (<0.1-1.0)
[2018-02-12 05:45] LABS: PREALBUMIN 15.4 mg/dL (18.0-35.7)
--- NOTE | 2018-02-12 06:41 | NUR ---
Pt reports he rested well overnight. On BIPAP since MN. Medicated for pain control 3 times overnight (see MAR). Cousin, Nicky, stayed in pt's room overnight. VSS. Will continue to monitor.
[2018-02-12 08:13] VITALS: BP 122/61
--- NOTE | 2018-02-12 09:02 | CON ---
[address] [address] CONSULTATION Name: ROGE KLEIN Room: [address] IN M.R.#: [id number] Admission: 02/08/18 Attend Phys: Jorje Isaac MD Discharge: Date of : 46 Report #: [id number] THIS REPORT FOR: //name// CC: Jorje Bonds REASON FOR CONSULTATION: 1. Pneumonia. 2. Respiratory failure. HISTORY OF PRESENT ILLNESS: This is a 67-year-old male patient with history of tongue cancer. His last chemotherapy was back in 03/2017 per the . He has a feeding tube in place. He has dysphagia. He is strictly n.p.o. all the time and according to the patient, he is very compliant with it. He does not eat or drink. On rare occasions, he will feel some reflux symptoms, although he does not feel the food in his mouth. He had been hospitalized in the past multiple times for pneumonia, suspected to be aspiration. He reported that yesterday all of a sudden, he started having weakness, tiredness and per the , his weakness worsened during the daytime. She increased his oxygen to 5 liters and she started noticing that he is huffing and puffing and she brought him to the ER. He has a background history of COPD, quit a while ago. He is oxygen dependent 3 liters per minute. During this hospitalization, he was in significant distress. He required BiPAP; however, this morning they were able to take him off and place him on 8 liters oxygen. He reported that he is congested, but unable to bring up any secretions. Also, it was noted he is running a fever; this morning, he had a fever of 39.1 Celsius. PAST MEDICAL HISTORY: Severe COPD, tongue cancer stage 3 status post treatment, history of diabetes mellitus, hypertension, hyperlipidemia. He has a feeding tube in place, it is not clear if it is a J-tube or PEG tube. He is strictly n.p.o. due to dysphagia. He has chronic back pain, diabetes mellitus and back surgery. HOME MEDICATIONS: Reviewed per the documentation within the [facility]. SOCIAL HISTORY: Ex-smoker, he smoked 1 pack per day for several decades, quit a couple of years ago. He had a history of alcohol abuse that was also discontinued. Does not abuse drugs. Lives with his . FAMILY HISTORY: Reviewed with the patient, noncontributory. ALLERGIES: PREDNISONE WAS MENTIONED IN HIS RECORD; however, [place] [address] CONSULTATION Name: LATOYAROGE SORIN Room: [address] IN [facility].#: [id number] Admission: 02/08/18 Attend Phys: Jorje Isaac MD Discharge: Date of : 46 Report #: [id number] REVIEW OF SYSTEMS: Consistent with the patient and negative other than as mentioned above. PHYSICAL EXAMINATION: GENERAL: He is awake, alert, oriented, no distress, speaks in full sentences. HEENT: Head normocephalic, atraumatic. Pupils equal, reactive to light. Extraocular movements are intact. NECK: Supple. No palpable lymph node. No palpable thyroid. Trachea is central. Mallampati of 2-3. CHEST: Diminished air movement bilaterally with crackles and rhonchi, end-expiratory wheezes. The expiratory phase is prolonged. HEART: S1, S2, no murmur. ABDOMEN: Benign, soft, lax, nontender. There is a feeding tube in place. No masses felt. EXTREMITIES: Lower extremity, no edema noted. No calf tenderness. SKIN: Normal for age and race. PSYCHIATRIC: Mood and affect slightly anxious. Good insight and judgment. LYMPHATICS: No palpable lymph nodes. NEUROLOGIC: Moving 4 extremities spontaneously. No focal weakness. VITAL SIGNS: O2 saturation more than 90% on 8 liters oxygen, temperature 39.4 at the time of my evaluation, his pulse rate of around 100 and his blood pressure is 137/73. LABORATORY DATA: His white blood count upon hospitalization 31.7, hemoglobin 12.4, platelet 183. It was noted that a repeat white blood count was elevated on the . His ABGs; 7.37/46/272 and this was done on BiPAP on 100% oxygen. His creatinine is 1.1 with BUN 25, potassium of 3.6 with sodium 141. BNP is slightly elevated. The admission BNP also was evaluated. His MRSA screen is pending. His chest x-ray showed multiple patchy consolidations that were confirmed on the CT of the chest that was negative for PE and emphysematous changes were noted. IMPRESSION: 1. Fdkuu-cd-seicvkf hypoxic respiratory failure. 2. Pneumonia. 3. Chronic obstructive pulmonary disease exacerbation. 4. Sepsis. 5. Leukocytosis. 6. History of tongue cancer, previous history of smoking, dysphagia, aspiration. PLAN: At this point, the patient will be continued broad spectrum antibiotic. We can adjust according to the cultures. There is some improvement in his symptoms. He is able today to come off BiPAP. Would continue to use oxygen as you are doing now and wean oxygen as tolerated to target O2 saturation of 90% [place] [address] CONSULTATION Name: ROGE KLEIN Room: [address] IN M.R.#: [id number] Admission: 02/08/18 Attend Phys: Jorje Isaac MD Discharge: Date of : 48 Report #: [id number]. BiPAP can be used during sleep and p.r.n. Gentle hydration is recommended. Although prednisone was reported as allergy, but the patient is currently on prednisone for the last 1 month 10 mg daily per his primary care physician. I will start him on IV steroids. Meanwhile, he will continue to be on a scheduled nebulization treatment and his home dose of Singulair. Thank you for the consult. We will follow up with you. We will consider chest x-ray in a day or 2. <ELECTRONICALLY SIGNED> By: Yaniv Tavarez MD 02/12/18 0902 1022 [id number] Tavarez MD /nt
[2018-02-12 12:00] VITALS: BP 118/68
[2018-02-12 16:12] VITALS: BP 102/61
--- NOTE | 2018-02-12 17:32 | NUR ---
ASSUMED CARE OF PATIENT AFTER REPORT THIS MORNING. PATIENT AWAKE, ALERT, AND ORIENTED APPROPRIATELY. PHYSICAL ASSESSMENT COMPLETED AND CHARTED. COMPLAINED OF PAIN AND ANXIETY. GIVEN PRN AND SCHEDULED MEDICATIONS, SEE EMAR FOR DOCUMENTATION. VITAL SIGNS STABLE. OXYGEN SATURATION WITHIN NORMAL LIMITS ON HIGH FLOW TOWER, 50 LPM AND 98% OXYGEN. PATIENT SITS AT BEDSIDE TO VOID VIA URINAL. RECEIVED TUBE FEEDINGS TODAY. DENIES NEEDS AT THIS TIME. CALL LIGHT WITHIN REACH. NURSING WILL CONTINUE TO MONITOR.
[2018-02-12 20:00] VITALS: BP 144/65
[2018-02-13] VITALS: BP 126/65
[2018-02-13 04:00] VITALS: BP 123/72
--- NOTE | 2018-02-13 04:31 | NUR ---
ASSUMED CARE AROUND 1930. PT A/OX4, FORGETFUL AT TIMES, PLEASANT. PT FIXATED ON TIMES FOR XANAX AND HYDROCODONE. REVIEWED WITH PATIENT ON MULTIPLE OCCASIONS TONIGHT. TELE MONITOR TRACING SR. ON HIFLOW TOWER AND BIPAP WHILE SLEEPING, TOLERATING WELL. IV SALINE LOCKED, ANBX THROUGHOUT SHIFT. PILLS GIVEN VIA PEG TUBE, FLUSHING WELL WITH <3 ML RESIDUAL. UP AT BEDSIDE VOIDING PER URINAL. INCONT BM THIS SHIFT IN UNDERWEAR. PT TOLD STAFF TO THROW THEM AWAY. VSS, LOW GRADE TEMP THROUGHOUT NIGHT. SEE CHARTING. CALL LIGHT IN REACH, WILL CONTINUE WITH PLAN OF CARE.
[2018-02-13 05:09] LABS: CALCIUM 8.7 mg/dL (8.5-10.1); CREATININE 1.2 mg/dL (0.6-1.3); POTASSIUM 3.8 mmol/L (3.5-5.1)
[2018-02-13 08:00] VITALS: BP 126/61
[2018-02-13 12:00] VITALS: BP 125/58
[2018-02-13 16:00] VITALS: BP 115/53
--- NOTE | 2018-02-13 18:30 | NUR ---
RECEIVED REPORT FROM DONOVAN PRADHAN. ASSUMED CARE OF PT AROUND 0730. PT A&OX4 BUT FORGETFUL AT TIMES. VSS. O2 SAT 96% ON HIGH FLOW TOWER AT 50LPM WITH 85% FIO2. AM ASSESSMENT AND VITALS COMPLETED CHARTED. TUFT MACHINE OPERATOR IN PLACE TRACING SR. PT HAS REPORTED CHRONIC, GENERALIZED PAIN THROUGHOUT THE SHIFT THAT HAS BEEN MANAGED WITH PO PAIN MEDICATION. ADMINISTRATION TIMES FOR PAIN MEDICATION AND XANAX WRITTEN ON WHITE BOARD FOR PT, HE REQUESTED. PT HAS RECEIVED ALL TUBE FEEDS THIS SHIFT. MEDS GIVEN PER PEG TUBE. PEG TUBE WORKING WELL WITH <3ML RESIDUAL. AT BEDSIDE THROUGHOUT THE AFTERNOON. PT UP TO STAND AT BEDSIDE TO USE URINAL, VOIDING WITHOUT ISSUE. PT UP TO BEDSIDE COMMODE WITH STANDBY ASSIST TO HAVE BM THIS EVENING. PT INCONTINENT OF STOOL THIS AM. NPO STATUS MAINTAINED. IV TO LEFT AC AND RIGHT FA INTACT AND SALINE LOCKED. PT CURRENTLY SITTING UP IN BED. HOURLY ROUNDING PERFORMED. FALL PRECAUTIONS IN PLACE. CALL LIGHT IS WITHIN REACH.
[2018-02-14 00:24] VITALS: BP 129/63
--- NOTE | 2018-02-14 01:18 | NUR ---
ASSUMED CARE OF PT AT 1900. PT IS ALERT AND ORIENTED. VSS. PERRLA. PT REPORTS SOME GENERALIZED PAIN. PT IS GETTING VICODIN FOR PAIN. PT IS GETTING BOLUS FEEDS IN HIS GTUBE. 500 ML OF DIABETISOURCE GIVEN AT 2100. PT IS WEARING BIPAP AT THIS TIME. PT IS IN SINUS RYTHM ON THE TELEMETRY. PT IS RESTING COMFORTABLY IN BED. RESPIRATIONS ARE EVEN AND NONLABORED. WILL CONTINUE TO MONITOR PT.
[2018-02-14 03:52] LABS: ABSOLUTE LYMPHOCYTES 0.1 thou/uL (0.8-5.3); ABSOLUTE MONOCYTES 0.2 thou/uL (0.0-1.2); ABSOLUTE NEUTROPHILS 8.3 thou/uL (1.6-8.1); BASOPHILS 0.1 %; HEMATOCRIT 29.9 % (42.0-52.0); HEMOGLOBIN 10.1 gm/dL (14.0-18.0); MCH 29.9 pg (26.0-34.0); MCHC 33.7 g/dL (28.0-37.0); MCV 88.6 fL (80.0-100.0); MONOCYTES 2.9 %; MPV 8.1 fl. (7.2-11.1); NUCLEATED RBCS 0 /100WBC; PLATELET COUNT* 133 thou/uL (150-400); RBC 3.37 mil/uL (4.50-6.00); RDW-CV 15.1 % (10.5-14.5); WBC 8.6 thou/uL (4.0-11.0)
[2018-02-14 03:55] VITALS: BP 123/63
[2018-02-14 04:08] LABS: ALBUMIN 2.1 g/dL (3.4-5.0); CALCIUM 9.1 mg/dL (8.5-10.1); POTASSIUM 3.6 mmol/L (3.5-5.1); TOTAL BILIRUBIN 0.3 mg/dL (<0.1-1.0); TOTAL PROTEIN 6.8 g/dL (6.4-8.2)
[2018-02-14 08:00] VITALS: BP 133/72
--- NOTE | 2018-02-14 09:55 | NUR ---
Pt is current with [facility]. If Pt is ready to dc over the weekend, dc HH orders, facesheet and H&P will need to be faxed to [facility] at [phone]
--- NOTE | 2018-02-14 11:22 | NUR ---
ASSUMED CARE OF PATIENT THIS AM AT 0730. PATIENT IS ALERT AND ORIENTED X 3. HE APPEARS TO BE CONFUSED ABOUT HIS MEDICATION TIMES. PATIENT'S O2 SATS ARE LOW BETWEEN 81 AND 86. PATIENT STATED THAT HE HAS CONTINUOUS PAIN. PATIENT IS SR IN THE MONITOR. HE IS RECIEVING ANTIBIOTICS ORDERED. NO FALLS OR INJURY. PATIENT IS REQUESTING HIS ANTIANXIETY MEDICATIONS TO BE GIVEN MORE FREQUENTLY. PATIENT EDUCATED ON MEDICATIONS. HE THREATENS TO LEAVE AMA IF HIS MEDICATION REQUESTS ARE NOT MET. PATIENT ALLOWED TO VERBALIZE FEELINGS.
[2018-02-14 11:54] VITALS: BP 130/64
--- NOTE | 2018-02-14 15:32 | NUR ---
Pt continues to request more medications than the Dr is willing to prescribe. Per Drs request nurse and CM discussed possible hospice arrangements for Pt. Pt declined hospice.
[2018-02-14 15:56] VITALS: BP 132/68
[2018-02-14 19:30] VITALS: BP 144/71
--- NOTE | 2018-02-14 23:15 | NUR ---
ASSUMED CARE OF PT AT 1900. PT IS ALERT AND ORIENTED. VSS. PERRLA. PT REPORTS ONGOING GENERAL PAIN AND ANXIETY. PT WAS SEEN VIA TELE PSYCH BY THE PSYCHIATRIST. PT REFUSED BOLUS TUBE FEEDING. PT REPORTS BEING FULL. PT HAS BEEN IN A BETTER MOOD THIS EVENING. PT IS GETTING READY TO PUT BIPAP ON. PT IS IN SINUS RYTHM ON THE TELEMETRY. PT IS RESTING COMFORTABLY IN BED. RESPIRATIONS ARE EVEN AND NONLABORED. WILL CONTINUE TO MONITOR PT.
--- NOTE | 2018-02-14 23:29 | NUR ---
PT JUST COUGHED UP A COPIOUS AMOUNT OF DARK BROWN SECRETIONS. IT APPEARS LIKE OLD BLOOD. AFTER COUGHING THAT UP HIS SPO2 IS NOW IN THE MID TO HIGH 90'S WHICH IS THE HIGHEST THAT I HAVE SEEN THEM IN THE LAST 2 DAYS.
[2018-02-15] VITALS: BP 130/63
[2018-02-15 04:00] VITALS: BP 134/70
[2018-02-15 08:00] VITALS: BP 137/72
[2018-02-15 12:00] VITALS: BP 133/65
[2018-02-15 16:00] VITALS: BP 141/78
--- NOTE | 2018-02-15 18:06 | NUR ---
ASSUMED RESPONSIBILITY OF PT THIS AM PT IS ALERT AND ORIENTEDX4 FORGETFUL AT TIMES AND FRUSTRATED ON 32L HI BEBA MACHINE 92% SBA TO ASSIST X1 TO BSC WANTS TO GO HOME PLAN PROBABLY TOMORROW PULMONOLOGY WANTS TO KEEP ANOTHER DAY CXR CAME BACK CALL LIGHT IN REACH
--- NOTE | 2018-02-15 23:46 | NUR ---
ASSUMED CARE OF PT AT 1900. PT IS ALERT AND ORIENTED. VSS. PERRLA. UP WITH 1 ASSIST. PT HAS A G TUBE IN PLACE. PT RECIEVED BOLUS FEEDING OF 500 ML DIABETISOURCE AT 2200. PT IS IN SINUS RYTHM ON THE TELEMETRY. PT IS RESTING COMFORTABLY IN BED. RESPIRATIONS ARE EVEN AND NONLABORED. WILL CONTINUE TO MONITOR PT.
[2018-02-16] VITALS (7 sets, daily range): BP systolic 108–142; BP diastolic 61–73
[2018-02-16 04:30] LABS: BE 9.9 mmol/L (-2 to +3); HCO3 34.8 mmol/L (22.0-26.0); PCO2 48.3 mmHg (35.0-45.0); PO2 90.8 mmHg (75.0-100.0); pH 7.476 (7.340-7.450)
--- NOTE | 2018-02-16 10:33 | NUR ---
ASSUMED RESPONSIBILITY OF PT THIS AM PT IS ALERT AND ORIENTED BUT FRUSTRATED AND NOT PLEASANT AND FRIEND AT BEDSIDE PT WANTS TO GO HOME BUT AWARE THAT OXYGEN NEED IS TOO HIGH WORKING TOWARD DC GOALS PT/OT ORDERED TODAY PAIN MED GIVEN AND OTHER MEDS VIA G TUBE NO OTHER CONCERNS AT THIS TIME CALL LIGHT IN REACH USES BSC FOR TOILET NEEDS
--- NOTE | 2018-02-16 18:55 | NUR ---
PT WITH HIGH BLOOD SUGAR AND RECEIVED 20U PT REFUSED ACCUCHECK AND INSULIN MOST OF THE DAY PT RECEIVED G TUBE FEEDING AT 1430 OR SO NEW MEDS GIVEN ALSO AND EXPLAINED PT IS IN BETTER SPIRITS TODAY BUT SLEPT MOST OF THE DAY UNDERSTANDS THAT OXYGEN MUST BE TITRATED DOWN BEFORE HE CAN LEAVE THE HOSPITAL CALL LIGHT IN REACH GETS UP TO BSC BY SELF WITHOUT ISSUES
--- NOTE | 2018-02-16 22:55 | NUR ---
DECREASED FIO2 TO 75% PER WEAN ORDER
[2018-02-17 03:30] VITALS: BP 124/62
--- NOTE | 2018-02-17 03:34 | NUR ---
RECEIVED REPORT AND ASSUMED CARE AT 1900. VSS. CARDIAC MONITORING IN PLACE. PT REPORTS GENERALIZED PAIN, PRN MEDICATION ADMINISTERED PER ORDERS. ASSESSEMENT COMPLETED CHARTED. PT UP SBA TO BSC, ON HIGH FLOW NC, G-TUBE, NPO. MEDICATION ADMIN PER EMAR. PT REFUSED LOVENOX INJ, EDUCATED ON RISK. PT VERBALIZED UNDERSTANDING. BED IN LOWEST POSITION, CALL LIGHT WITHIN REACH, BED ALARM ON. PT ONLY WANTED TO HAVE 1 CAN FOR HIS NIGHT FEEDING, BUT AGREED TO HAVE EXTRA FLUSHES OF WATER. HOURLY ROUNDING COMPELTED AND ALL NEEDS MET. WILL CONTINUE TO MONITOR FOR REMAINDER OF THE SHIFT
[2018-02-17 04:50] LABS: HEMOGLOBIN 11.5 gm/dL (14.0-18.0); MCH 29.5 pg (26.0-34.0); MCHC 32.9 g/dL (28.0-37.0); MCV 89.6 fL (80.0-100.0); MPV 8.1 fl. (7.2-11.1); NUCLEATED RBCS 0 /100WBC; PLATELET COUNT* 157 thou/uL (150-400); RDW-CV 15.1 % (10.5-14.5)
[2018-02-17 05:07] LABS: ALBUMIN 2.4 g/dL (3.4-5.0); CALCIUM 9.2 mg/dL (8.5-10.1); CREATININE 1.4 mg/dL (0.6-1.3); POTASSIUM 3.4 mmol/L (3.5-5.1); TOTAL BILIRUBIN 0.4 mg/dL (<0.1-1.0); TOTAL PROTEIN 7.1 g/dL (6.4-8.2)
[2018-02-17 05:49] LABS: ABSOLUTE LYMPHOCYTES 0.6 thou/uL (0.8-5.3); ABSOLUTE MONOCYTES 0.1 thou/uL (0.0-1.2); ABSOLUTE NEUTROPHILS 7.3 thou/uL (1.6-8.1)
[2018-02-17 05:50] LABS: ANISOCYTOSIS 1+; PLATELET ESTIMATE ADEQUATE; POIKILOCYTOSIS 1+
[2018-02-17 08:00] VITALS: BP 124/62
[2018-02-17 12:00] VITALS: BP 133/62
[2018-02-17 16:00] VITALS: BP 110/49
--- NOTE | 2018-02-17 17:34 | NUR ---
ASSUMED RESPONSIBILITY OF PT THIS AM PT IS ALERT AND ORIENTED, FRUSTRATED T/O DAY ALLOWED TUBE FEEDING AROUND 1230 BUT USUALLY IS NONCOMPLIANT DENIES ANY PAIN O2 SLOWLY TITRATING DOWN AND CHEST XRAY IMPROVING
[2018-02-17 20:00] VITALS: BP 118/64
--- NOTE | 2018-02-17 23:55 | NUR ---
PATIENT RESTING IN BED. MEDS PER G-TUBE WITHOUT DIFFICULTIES. UP IN CHAIR FOR AWHILE. TRANSFER TO BED WITHOUT DIFFICULTIES. DENIES PAIN OR DISCOMFORT AT THIS TIME. CONT. TO MONITOR. NO SIGN OF DISTRESS. BED IN LOW POSITION, CALL LIGHT IN REACH.
[2018-02-18] VITALS: BP 120/57
[2018-02-18 04:00] VITALS: BP 119/61
[2018-02-18 05:25] LABS: ABSOLUTE LYMPHOCYTES 0.3 thou/uL (0.8-5.3); ABSOLUTE MONOCYTES 0.6 thou/uL (0.0-1.2); ABSOLUTE NEUTROPHILS 12.1 thou/uL (1.6-8.1); BASOPHILS 0.2 %; HEMATOCRIT 34.5 % (42.0-52.0); HEMOGLOBIN 11.3 gm/dL (14.0-18.0); LYMPHOCYTES 2.2 %; MCH 29.3 pg (26.0-34.0); MCHC 32.7 g/dL (28.0-37.0); MCV 89.8 fL (80.0-100.0); MONOCYTES 4.4 %; MPV 8.2 fl. (7.2-11.1); NUCLEATED RBCS 0 /100WBC; PLATELET COUNT* 176 thou/uL (150-400); POLYS 93.2 %; RBC 3.84 mil/uL (4.50-6.00); RDW-CV 14.9 % (10.5-14.5)
[2018-02-18 05:27] LABS: PREALBUMIN 32.5 mg/dL (18.0-35.7)
[2018-02-18 05:32] LABS: ALBUMIN 2.5 g/dL (3.4-5.0); CREATININE 1.5 mg/dL (0.6-1.3); POTASSIUM 3.4 mmol/L (3.5-5.1); TOTAL BILIRUBIN 0.4 mg/dL (<0.1-1.0); TOTAL PROTEIN 7.1 g/dL (6.4-8.2)
[2018-02-18 07:30] VITALS: BP 120/62
--- NOTE | 2018-02-18 08:29 | NUR ---
RECEIVED REPORT FROM HOWARD AND ASSUMED CARE OF PT @ 7022.PT IS A/O,VSS,TRACING SR ON THE MONITOR.LUNG SOUNDS ARE DIMINSHED.LAST BM WAS 02/16/18.IV RIGHT FOREARM PATENT AND SALINE LOCKED.IV LEFT AC PATENT AND SALINE LOCKED.PT IS CALM AND COOPERATIVE WITH NO C/O PAIN AT TIME OF ASSESSMENT.UP WITH ONE ASSIST TO BSC.PT LEFT RESTING IN BED WITH CALL LIGHT AND FLL PRECAUTIONS IN PLACE.WILL CONTINUE TO MONITOR.
[2018-02-18 12:00] VITALS: BP 122/57
[2018-02-18 15:35] VITALS: BP 108/51
--- NOTE | 2018-02-18 18:18 | NUR ---
VSS,PROGRAM MANAGEMENT ANALYST IN PLACE WITH NO CHANGES.PT REMAINS ON HEATED HIGH FLOW MACHINE @ 55%.PT PAIN MANAGED WELL WITH PAIN MEDICATIONS.PT REFUSED MORNING AND EVENING BLOOD GLUCOSE CHECK.MORNING AND LUNCH TUBE FEEDS COMPLETED WITH NO COMPLICATIONS.PT REFUSED TO WORK WITH PHYSICAL THERAPY.HOURLY ROUNDING COMPLETED FOR PT SAFETY.CALL LIGHT AND FALL PRECAUTIONS IN PLACE.PT REFUSED TO TAKE EVENING FEEDING AND WANTS TO RECIEVE IT ON ELEVATOR ERECTOR.WILL CONTINUE TO MONITOR FOR DURATION OF SHIFT.
[2018-02-18 20:00] VITALS: BP 115/62
[2018-02-19] VITALS: BP 123/67
[2018-02-19 04:00] VITALS: BP 129/65
--- NOTE | 2018-02-19 06:27 | NUR ---
PATIENT REFUSED AM LAB. EDUCATION PROVIDED.
[2018-02-19 07:50] VITALS: BP 115/70
--- NOTE | 2018-02-19 10:50 | NUR ---
RECEIVED REPORT FROM HOWARD AND ASSUMED CARE OF PT @ 1919.PT IS A/O,VSS,TRACING SR ON THE MONITOR.LUNG SOUNDS ARE CLEAR.IV LEFT AC PATENT AND SALINE LOCKED.IV RIGHT FOREARM PATENT AND SALINE LOCKED.G TUBE SECURE AND PATENT.PT IS CALM AND COOPERATIVE AT TIMES.REFUSED MORNING LABS AND REFUSED MORNING ACCU CHECK.PT C/O PAIN 8/10-RELIEVED BY MEDICATIONS.PT LEFT RESTING IN CHAIR WITH CALL LIGHT AND FALL PRECAUTIONS IN PLACE.WILL CONTINUE TO MONITOR.
[2018-02-19 11:30] VITALS: BP 117/72
[2018-02-19 16:00] VITALS: BP 119/56
--- NOTE | 2018-02-19 17:36 | NUR ---
VSS,CARDIAC MONITORING IN PLACE WITH NO CHANGES.PT REMAINS ON HEATED HIGH FLOW NC @ 40%.IVF INFUSING PER ORDERS.PAIN MANAGED WELL WITH PAIN MEDICATIONS.PT REFUSED TO WORK WITH THERAPIES.PT REFUSED MORNING AND AFTERNOON BLOOD GLUCOSE CHECK.MORNING AND AFTERNOON TUBE FEEDS COMPLETED WITH NO COMPLICATIONS.HOURLY ROUNDING COMPLETED FOR PT SAFETY.CALL LIGHT AND FALL PRECATUIONS IN PLACE.WILL CONTINUE TO MONITOR FOR DURATION OF SHIFT. PT REFUSED LABS THIS MORNING DOCTOR IS AWARE.PT AGREED TO HAVE LABS DRAW IN AM.CTA COMPLETED.HOLD METFORMIN FOR 48 HOURS.
[2018-02-19 20:00] VITALS: BP 125/60
--- NOTE | 2018-02-19 23:53 | NUR ---
ASSUMED PT CARE AFTER REPORT AT 1930.PT ALERT AND ORIENTED X4. VSS. PHYSICAL ASSESSMENT COMPLETED AND CHARTED. PT ON HEATED HIGH FLOW NC 40% WITH 93% O2 SAT.PT TRACING SR ON GRIDCAP MACHINE OPERATOR.PT UP WITH STANDBY ASSIST. PT IV LINE @LAC PATENT AND INFUSING WELL. PT IV LINE AT R FOREARM PATENT AND INTACT SALINE LOCKED.PT COMPLAINED OF GENERALIZED PAIN-PAIN MEDS GIVEN.CALL LIGHT WITHIN REACH. WILL CONTINUE TO MONITOR PT.
[2018-02-20] VITALS: BP 126/68
[2018-02-20 04:30] VITALS: BP 142/69
[2018-02-20 04:54] LABS: ABSOLUTE LYMPHOCYTES 0.3 thou/uL (0.8-5.3); ABSOLUTE MONOCYTES 0.2 thou/uL (0.0-1.2); ABSOLUTE NEUTROPHILS 12.5 thou/uL (1.6-8.1); BASOPHILS 0.1 %; HEMOGLOBIN 11.8 gm/dL (14.0-18.0); LYMPHOCYTES 2.5 %; MCH 29.2 pg (26.0-34.0); MCHC 32.8 g/dL (28.0-37.0); MONOCYTES 1.4 %; NUCLEATED RBCS 0 /100WBC; PLATELET COUNT* 146 thou/uL (150-400); RBC 4.05 mil/uL (4.50-6.00); RDW-CV 14.9 % (10.5-14.5); WBC 13.1 thou/uL (4.0-11.0)
[2018-02-20 05:33] LABS: ALBUMIN 2.6 g/dL (3.4-5.0); CALCIUM 9.1 mg/dL (8.5-10.1); CREATININE 1.2 mg/dL (0.6-1.3); POTASSIUM 3.7 mmol/L (3.5-5.1); TOTAL BILIRUBIN 0.6 mg/dL (<0.1-1.0)
--- NOTE | 2018-02-20 05:48 | NUR ---
PT RESTED IN BED.PT DID NOT SLEEP ALL NIGHT. NO CHANGES IN VITAL SIGNS AND TRACING. PT REFUSED LOVENOX. EDUCATION ON RISK GIVEN. COMMUNICATES UNDERSTANDING.FEEDING GIVEN 2X-WELL TOLERATED. DENIES ANY PAIN OR COMPLAIN AT THIS TIME. HS GOALS OF REST & SAFETY ACHIEVED. HOURLY ROUNDING OBSERVED. CALL LIGHT WITHIN REACH. WILL CONTINUE TO MONITOR PT.
[2018-02-20 08:00] VITALS: BP 140/68
--- NOTE | 2018-02-20 09:38 | NUR ---
ASSUMED PT CARE AT 0700 PT IS ALERT AND ORIENTED X 4 PT C/O PAIN DENIES SOA PT REFUSED INSULIN AND BLOOD GLUCOSE CHECK THIS AM PT STATES WANTS TO TAKE METFORMIN AND WILL NOT TAKE ANYMORE INSULIN THIS NURSE EDUCATED PT ON THE IMPORTANCE OF BLOOD SUGAR MONITORING THE EFFECTS THAT BLOOD SUGARS HAVE ON THE BODY HEALING PT STATES UNDERSTANDING NOTIFIED PHYSICIAN ABOUT PT ASKING FOR MORE PAIN MEDS AND XANAX PHYSICIAN INCREASED PAIN MEDS GAVE PAIN MEDS TO PT ASKED PHYSICIAN FOR PHYSICAL THERAPY ORDERS, PT IS ON HIFLOW NC SAT ABOVE 90, PT IS SR ON THE MONITOR, ASKED PT REGARDING TIMES HE WOULD LIKE FEEDING AWAITING PT ANSWER, WILL CONTINUE TO MONITOR
[2018-02-20 12:17] VITALS: BP 125/74
[2018-02-20 15:49] VITALS: BP 121/56
--- NOTE | 2018-02-20 17:10 | NUR ---
WILL DISCHARGE PT. FROM [facility] DUE TO PT. IS ADAMANT HE CAN DO TRANSFERS ON HIS OWN AND REFUSES O.T. TO BE CLOSE TO HIM FOR TRANSFERS. PT. REQUESTS TO BE OFF OF [facility] WHEN ASKING HIM IF HE WOULD LIKE TO WORK WITH O.T. ANOTHER DAY.
[2018-02-21] VITALS: BP 128/63
--- NOTE | 2018-02-21 00:44 | NUR ---
ASSUMED CARE OF PT AFTER REPORT AT 1930.PT A&0X4. VSS. PHYSICAL ASSESSMENT COMPLETED AND CHARTED.PT TRACING SR ON TELE. PT WITH O2 VIA NASAL CANNULA @4LPM WITH 02 SAT OF 91%.PT UP WITH STANDBY ASSIST. PT COMPLAINED OF GENERALIZED PAIN-PAIN MEDS GIVEN. DISCUSSED PLAN OF CARE. COMMUNICATES UNDERSTANDING.CALL LIGHT WITHIN REACH. WILL CONTINUE TO MONITOR PT.
[2018-02-21 04:00] VITALS: BP 156/71
--- NOTE | 2018-02-21 06:00 | NUR ---
PT A&OX4. VSS. NO CHANGES TRACING ON TELE. PT O2 VIA NC @ 4LPM WITH O2 SAT OF 94%. PT DID NOT SLEEP ALL NIGHT. PT REQUESTED XANAX- MED GIVEN PER OCT. BLOOD SUGAR 66 MG/DL.PT ASYMPTOMATIC.TUBE FEEDING GIVEN-WELL TOLERATED.HOURLY ROUNDING OBSERVED.HS REST AND SAFETY GOAL ACHIEVED.CALL LIGHT WITHIN REACH. BED IN LOW POSITION.
[2018-02-21 08:00] VITALS: BP 145/67
--- NOTE | 2018-02-21 11:40 | NUR ---
ASSUMED PT CARE AT 0700 PT IS ALERT AND ORIENTED X 4 PT C/O PAIN GAVE PAIN MEDS PT STATES PAIN MEDS HELP, PT DENIES SOA ON 4L/NC, PULMONOLOGY SAW PT ORDERED TO TURN O2 DOWN TO 3L WHICH THIS NURSE DID PT HAS DENIES SOA, GAVE PT MEDS THROUGH PED TUBE WHICH PT TOLERATED, PT IS UP WITH SBA, PT IS SR ON THE MONITOR, PULMONOLOGY HAS CLEARED PT FOR DISCHARGE AWAITING HOSPITALIST, WILL CONTINUE TO MONITOR
[2018-02-21] MEDS ORDERED: PREDNISONE 10 M10 M1 PER TUBE (11:41)
[2018-02-21] MEDS ORDERED: ZYVOX600 MG PO (11:41)
[2018-02-21] MEDS ORDERED: LEVAQUIN 750 M750 MG PO (11:41)
[2018-02-21 11:52] VITALS: BP 145/67
--- NOTE | 2018-02-21 11:53 | NUR ---
ORDERS NOTED FOR DC HOME. DISCUSSED WITH PT AND . PER PT, HE CANNOT AFFORD TO DO OUTPT THERAPY AND IS HOPEFUL TO GET BACK TO 'SWALLOWING'. WOULD LIKE TO CONTINUE WITH HH AT HOME AND USES [facility]. ORDERS OBTAINED, CALLED AND FAXED TO [facility]
[2018-02-21 11:59] VITALS: BP 129/66
[2018-02-21 12:10] VITALS: BP 145/67
--- NOTE | 2018-02-21 13:28 | NUR ---
WAS NOTIFIED BY [employer] THAT PT'S ZYVOX SCRIPT NEEDED PRIOR AUTH. SUBMITTED ON LINE THRU [employer]. [facility] CLOSED UNTIL FRIDAY. WILL FOLLOW UP THEN. CALL BACK TO [facility] TO UPDATE
--- NOTE | 2018-02-23 09:21 | NUR ---
PT'S INSURANCE DENIED COVERAGE OF ZYVOX. NOTIFIED DONI DIXON AND JUAN. PER DR MARTINEZ, PT HAD HAD NEAR COMPLETE COURSE AND ZYVOX COULD BE DC'D. CALL TO TO NOTIFY AND TO [facility]IREE/[facility] TO CANCEL SCRIPT
== END 2018-02-21 12:37 | disposition home health service (06) | DRG 871 ==
LOC: M.ERS 19:34 → M.TBA-ER 20:42 → M.2W 20:42
PROVIDERS: Emergency Medicine; Internal Medicine; Internal Medicine Critical Care Medicine; Internal Medicine Pulmonary Disease; ADMIT Internal Medicine
PROC: 5A09357 Assistance with Respiratory Ventilation, Less than 24 Consecutive Hours, Continuous Positive Airway Pressure (ICD-10-PCS; principal; 2018-02-08)
PROC: 5A09357 Assistance with Respiratory Ventilation, Less than 24 Consecutive Hours, Continuous Positive Airway Pressure (ICD-10-PCS; 2018-02-09)
PROC: 5A09357 Assistance with Respiratory Ventilation, Less than 24 Consecutive Hours, Continuous Positive Airway Pressure (ICD-10-PCS; 2018-02-10)
PROC: 5A09357 Assistance with Respiratory Ventilation, Less than 24 Consecutive Hours, Continuous Positive Airway Pressure (ICD-10-PCS; 2018-02-11)
PROC: 5A09357 Assistance with Respiratory Ventilation, Less than 24 Consecutive Hours, Continuous Positive Airway Pressure (ICD-10-PCS; 2018-02-12)
PROC: 5A09357 Assistance with Respiratory Ventilation, Less than 24 Consecutive Hours, Continuous Positive Airway Pressure (ICD-10-PCS; 2018-02-13)
PROC: 5A09357 Assistance with Respiratory Ventilation, Less than 24 Consecutive Hours, Continuous Positive Airway Pressure (ICD-10-PCS; 2018-02-14)
DX: A41.9 Sepsis, unspecified organism (principal); J69.0 Pneumonitis due to inhalation of food and vomit; J96.21 Acute and chronic respiratory failure with hypoxia; J96.22 Acute and chronic respiratory failure with hypercapnia; J44.1 Chronic obstructive pulmonary disease with (acute) exacerbation; J98.11 Atelectasis; R13.10 Dysphagia, unspecified; E11.65 Type 2 diabetes mellitus with hyperglycemia; I10 Essential (primary) hypertension; E78.5 Hyperlipidemia, unspecified; G89.29 Other chronic pain; M54.9 Dorsalgia, unspecified; Z85.118 Personal history of other malignant neoplasm of bronchus and lung; Z79.2 Long term (current) use of antibiotics; Z88.8 Allergy status to other drugs, medicaments and biological substances; Z85.810 Personal history of malignant neoplasm of tongue; Z92.21 Personal history of antineoplastic chemotherapy; Z99.81 Dependence on supplemental oxygen; Z22.322 Carrier or suspected carrier of Methicillin resistant Staphylococcus aureus; Z79.1 Long term (current) use of non-steroidal anti-inflammatories (NSAID); Z79.899 Other long term (current) drug therapy; Z87.891 Personal history of nicotine dependence; Z91.19 Patient's noncompliance with other medical treatment and regimen; Z92.3 Personal history of irradiation; Z93.1 Gastrostomy status

== ENCOUNTER → 2018-03-10 | Outpatient (CLI) | payer OTHER ==
[~2018-03-10] MED LIST changes: +LASIX 20 MG TAB20 MG PO; +NORVASC5 MG PO; +VENTOLIN HFA 1818 GM INH; +ZYVOX600 MG PO
== END ==
LOC: M.RAD 12:29
DX: J18.9 Pneumonia, unspecified organism (principal); J98.11 Atelectasis; J44.9 Chronic obstructive pulmonary disease, unspecified; I10 Essential (primary) hypertension; E11.9 Type 2 diabetes mellitus without complications; Z87.891 Personal history of nicotine dependence

== ENCOUNTER 2018-03-11 18:58 | Inpatient (IN) | payer OTHER ==
[~2018-03-11] VITALS: Ht 170.2 cm; Wt 73.9 kg
[2018-03-11 18:58] VITALS: BP 111/48
[~2018-03-11 18:58] MED LIST changes: -LASIX 20 MG TAB20 MG PO; -NORVASC5 MG PO; -VENTOLIN HFA 1818 GM INH
[2018-03-11 19:43] LABS: HEMATOCRIT 34.8 % (42.0-52.0); HEMOGLOBIN 11.5 gm/dL (14.0-18.0); MCH 29.5 pg (26.0-34.0); MCV 89.4 fL (80.0-100.0); MPV 8.1 fl. (7.2-11.1); NUCLEATED RBCS 0 /100WBC; PLATELET COUNT* 142 thou/uL (150-400); RBC 3.89 mil/uL (4.50-6.00); RDW-CV 15.9 % (10.5-14.5); WBC 10.3 thou/uL (4.0-11.0)
[2018-03-11 19:52] LABS: APTT 33.6 Seconds (25.0-31.3); INR 1.2; PROTIME 11.7 Seconds (9.20-11.50)
[2018-03-11 19:53] LABS: ANION GAP 8 mmol/L (7-16); BUN 22 mg/dL (7-18); CHLORIDE 98 mmol/L (98-107); CO2 34 mmol/L (21-32); CREATININE 1.5 mg/dL (0.6-1.3); GLUCOSE 114 mg/dL (70-99); POTASSIUM 4.2 mmol/L (3.5-5.1); SODIUM 140 mmol/L (136-145)
[2018-03-11 20:03] LABS: ALBUMIN 2.9 g/dL (3.4-5.0); ALKALINE PHOSPHATASE 70 U/L (46-116); LIPASE 38 U/L (73-393); MAGNESIUM 1.4 mg/dL (1.8-2.4); NT-PRO BRAIN NAT PEPTIDE 1010 pg/mL (<300); SGOT 22 U/L (15-37); SGPT 16 U/L (30-65); TOTAL BILIRUBIN 1.2 mg/dL (<0.1-1.0); TOTAL PROTEIN 7.4 g/dL (6.4-8.2); TROPONIN-I LEVEL <0.06 ng/mL (<0.06)
[2018-03-11 20:29] LABS: ABSOLUTE LYMPHOCYTES 0.5 thou/uL (0.8-5.3); ABSOLUTE MONOCYTES 0.5 thou/uL (0.0-1.2); ABSOLUTE NEUTROPHILS 9.3 thou/uL (1.6-8.1); ANISOCYTOSIS 1+; PLATELET ESTIMATE DECREASED
[2018-03-11 21:13] VITALS: BP 111/48
[2018-03-11 23:45] VITALS: BP 110/54
[2018-03-12] VITALS: BP 102/54
[2018-03-12 04:00] VITALS: BP 100/51
[2018-03-12 08:00] VITALS: BP 113/50
--- NOTE | 2018-03-12 09:02 | NUR ---
RECEIVED REPORT AND ASSUMED CARE AT 2102 WHEN PT WAS TRANSFERED FROM ED TO ROOM 223. VSS. CARDIAC MONITORING IN PLACE. PT REPORTED GENERALIZED PAIN 04/27. REQUEST SENT TO PHYSICIAN FOR PRN PAIN MEDICATION. ADMIN PER ORDERS. ASSESSMENT COMPLETED CHARTED. ADMISSION COMPLETED BY NURSING. PT RECEIVED BATH OH THIS SHIFT, WOUND PICTURES TAKEN, WOUND NURSE CONSULTED. PT IS UP WITH SBA, ON 7L NC, TITRATED TO 5LNC. PT HAS FEEDING TUBE, NPO. PT QT2. BED LOCKED IN LOWEST POSITION, CALL LIGHT WITHIN REACH. BED ALARM ON. POSITION CHANGED EVERY TWO HOURS. HOURLY ROUNDING COMPLETED, ALL NEEDS MET. NURSING WILL CONTINUE TO MONITOR PT MENTIONED HAVING A LARGE AMOUNT OF STAFFORD WITH HIM, THIS NURSE OFFERED TO HAVE IT SENT TO SECURITY TO BE LOCKED UP. PT AGREED. UPON PT GIVING STAFFORD TO THIS NURSE, SECOND STAFF MEMBER ASKED TO ROOM BY NURSING TO WITNESS AMOUNT PT HAVING LOCKED UP. 1651.00 WAS COUNTED WITH PT AND WITNESS(OTHER NURSING STAFF), PT STATED "THAT'S NOT ENOUGH FOR ME TO WORRY ABOUT" NURSING ENCOURAGED PT TO SEND TO SECURITY. PT REFUSED "IT'S NOT ENOUGH FOR ME TO WORRY ABOUT, I'LL JUST PUT IT WITH MY STUFF... WILL YOU WRAP A RUBBERBAND AROUND IT" NURSIING OFFERED AN ENVELOPE SO THAT IT WOULD NOT BE LOOSE IN THE PT BELONGINGS. PT AGREED. NURSING PLACED MONEY IN ENVELOPE WITH RUBBER BAND BACK INTO PT TOILETRIES BAG.
--- NOTE | 2018-03-12 11:31 | NUR ---
WOUND CARE NOTE: CONSULT RECEIVED FOR WOUNDS PRESENT ON ADMISSION. EDUCATED PATIENT ON MY SERVICES--HERE TO ASSESS SKIN ISSUES AND HELP COME UP WITH A PLAN OF CARE. PATIENT STATES THAT THEY JUST TOOK CARE OF EVERYTHING AND THEY HAVE BEEN DOING A GOOD JOB. DURING ASSESSMENT, PATIENT PARTICULAR WITH CARES, PREFERS TO CONTINUE DOING THINGS HE DOES AT HOME. PATIENT PRESENTS WITH DENUDED SKIN UNDERNEATH HIS PEG TUBE. WOUND WITH PINK, MOIST WOUND BED. PERCY-WOUND SLIGHTLY INFLAMMED. BELIEVE THIS SKIN ISSUE IS DUE TO DRAINAGE FROM PEG SITE-CAUSTIC ON SKIN CAUSING SKIN BREAKDOWN. PATIENT STATES IT'S ALWAYS LIKE THAT. EDUCATED ON PLACING A DRESSING UNDER THERE TO ASSIST WITH HEALING--MARATHON. PATIENT STATES IT MAY HELP, BUT IT WILL ONLY BREAK DOWN AGAIN. FEELS MORE COMFORTABLE WITH JUST USING DRAIN SPONGES AND TAPE. ALSO HAS BREAKDOWN TO SACRAL AREA. APPEARS TO BE FROM FRICTION. LOOKS TO BE HEALING, PINK, DRY, FLAKEY SKIN. APPLIED BARRIER OINTMENT. PATIENT STATES HE USES LOTION AND ANTIBIOTIC OINTMENT ON IT. EDUCATED PATIENT ON TURNING AND KEEPING OFF AREA, COMMUNICATED UNDERSTANDING. RECOMMEND TURN Q2 HOURS-SIDE TO SIDE PREFERABLY BARRIER OINTMENT BID AND PRN INCONTINENCE LIMIT LAYERS OF LINEN UNDER SKIN. MARATHON UNDER PEG TUBE SITE-NOTIFY WOUND RN IF PATIENT DESIRES TO TRY
[2018-03-12 11:52] VITALS: BP 94/52
[2018-03-12 15:15] VITALS: BP 106/70
--- NOTE | 2018-03-12 15:18 | EKG ---
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: [place] : 1950 Requested By: Lorenzo Banegas Order Number: [id number] MD: Raj Mobley Measurements Intervals Arthur Rate: 123 P: 59 MI: 132 QRS: 34 QRSD: 98 T: -2 QT: 291 QTc: 417 Interpretive Statements Sinus tachycardia Low voltage, extremity leads Artifact in lead(s) I,II,III,aVR,aVL,aVF Compared to ECG 02/08/2018 19:39:36 No significant changes Electronically Signed On 03-12-2018 15:18:26 CDT by Raj Mobley [email or web address] <ELECTRONICALLY SIGNED> By: Raj Mobley MD, [facility] 03/12/18 1518 24 24 Raj Mobley MD, [facility] /EPI
--- NOTE | 2018-03-12 15:23 | NUR ---
Pt is A&O. Cousin in room at bedside. Pt known to this CM from previous hospital stay. Pt stated that he has been doing well at home, has been independent with ADLs and iADLs. Pt uses a walker for mobility. Pt admits that over the past few days, Pt has noticed increased difficulty with endurance. [place]. Pt wears home o2, provided through [employer]. Pt's is currently inpt and will likely require skilled. Cousin working on getting Pt a life alert system for home. CM provided Pt with private duty info, in case he needs it. Pt stated that he is planning on discharging to home tomorrow.
[2018-03-12 19:08] LABS: IgA 164 mg/dL (61-437); IgG 825 mg/dL (700-1600); IgM 145 mg/dL (20-172)
--- NOTE | 2018-03-12 19:33 | NUR ---
RECEIVED RECEIVED FROM ERNESTO PRADHAN. ASSUMED CARE OF PT AROUND 0730. PT A&O X4. VSS. O2 SAT 90% ON 4.5 LITERS THIS AM - ABLE TO TITRATE PT DOWN TO 3L PER NC BY END OF SHIFT, O2 SAT >90%. AM ASSESSMENT AND VITALS COMPLETED CHARTED. IV TO RIGHT FA INTACT AND INFUSING ABX. IV TO LEFT AC REMOVED, CATHETER OUT. PT HAS REPORTED "CANCER PAIN" THROUGHOUT THE SHIFT AT 9/10 THAT HAS BEEN MANAGED WITH PO PAIN MEDICATION GIVEN THROUGH HIS PEG TUBE. PT STATES THAT PAIN REMAINS "THE SAME" ALL THE TIME, BUT STILL WANTS MEDICATION FOR PAIN. PEG TUBE FEEDS GIVEN THIS SHIFT - JEVITY 1.5, TWO CARTONS, AT EACH FEED. PT SEEN BY WICK TENDER THIS SHIFT. PT ALSO SEEN BY PULMONARY AND HOSPITALIST. FAMILY AT BEDSIDE MOST OF SHIFT. PT HAS ALLOWED MOST Q2HR REPOSITIONINGS, BUT REFUSED A TURN THIS MORNING. PT ALSO REFUSED NOON-TIME BLOOD GLUCOSE CHECK. PT EDUCATED ON IMPORTANCE OF TURNS AND ON BLOOD GLUCOSE CHECKS. PT COMMUNICATED UNDERSTANDING. ASPIRATION PRECAUTIONS IN PLACE. FALL PRECAUTIONS IN PLACE. HOURLY ROUNDING PERFORMED.
[2018-03-12 20:00] VITALS: BP 119/69
[2018-03-13] VITALS (7 sets, daily range): BP systolic 93–110; BP diastolic 44–59
--- NOTE | 2018-03-13 09:38 | CON ---
[facility] [place] [address] [place] [address] CONSULTATION Name: ROGE KLEIN Room: [address] IN M.R.#: [id number] Admission: 03/11/18 Attend Phys: Jorje Isaac MD Discharge: Date of : 46 Report #: [id number] THIS REPORT FOR: //name// CC: Jorje Bonds DATE OF SERVICE: 03/12/2018 REFERRING PHYSICIAN: Jorje Isaac M.D. CHIEF COMPLAINT: Dyspnea. HISTORY OF PRESENT ILLNESS: The patient is not a real good historian. He states that he was not feeling well yesterday when he woke up in the morning. He woke up earlier in the morning around 2:00 a.m. and then again later at 4:00 a.m. He was just not feeling well. He was very vague as to what this actually meant. He did comment on the fact that he experienced extreme weakness, was unable to "get out of his recliner." He did feel short winded, although he did not have any fever, chills, cough or phlegm production. Because of his general weakness he became alarmed and he was brought to the Emergency Room. Reviewing the current records in the [facility] system, it appears that the son noted the patient to have some "behavioral changes." He was short of breath with tremors. Son brought him into the Emergency Room. The ER records also reflect the patient complained of shortness of breath at the time of admission. Apparently, he did have some GI issues and had some nausea, and according to the ER records, he reported to have vomited. During his ER evaluation, he was denying chest pain, fever, chills, vomiting or abdominal discomfort. 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 He is status post radiation and chemotherapy, is under the care of Dr. Vargas as well as Dr. Barajas. He has a jejunostomy tube in place. He receives nutritional support strictly through his gastrostomy tube. He has a history of recurrent pneumonia as well. He has a history of hypertension, chronic back pain, diabetes, malignant neoplasm at the base of tongue, poorly differentiated squamous cell carcinoma, completed treatment in 03/2017 according to records in the [facility] system. He has a history of chronic anemia. REVIEW OF SYSTEMS: System review negative other than what is outlined above. SOCIAL HISTORY: Lives alone and he is a prior smoker, quit several years ago. He was smoking about [place] [address] CONSULTATION Name: LATOYAROGE SORIN Room: [address] IN M.R.#: [id number] Admission: 03/11/18 Attend Phys: Jorje Isaac MD Discharge: Date of : 46 Report #: [id number] ALLERGIES: STATES HE IS ALLERGIC TO STEROIDS. He has multiple hospitalizations at [facility] in [place] with history of recurrent pneumonia. FAMILY HISTORY: Noncontributory at this time. CURRENT MEDICATIONS: He has been started on guaifenesin, DuoNeb aerosol treatments. He is on Zosyn, Apresoline. He has other maintenance home medications that will be addressed by the Hospitalist Service. PHYSICAL EXAMINATION: VITAL SIGNS: Blood pressure 113/50, respiratory rate 16, nonlabored, pulse rate 71, temperature 96.2 degrees. His weight is 161 pounds. GENERAL APPEARANCE: He is awake, alert. He is oriented. He is not in any respiratory distress. HEENT: Head atraumatic. Eyes: Pupils are round and equal, reactive. Oral cavity moist, no lesions. NECK: No adenopathy in the cervical lymph nodes or any fullness in the supraclavicular area. CHEST: Reveals crackles in the left base. Some inspiratory rhonchi noted on the left side. Right lung field appears clear. No audible wheezes. CARDIOVASCULAR: Distant heart tones, regular rhythm. ABDOMEN: PEG tube is in place, the jejunostomy tube. There is no redness or irritation at the site of the tube as it enters into the abdominal wall. No drainage. Abdomen is soft, otherwise. SKIN: He appears pale overall. His color is consistent with that. No rash. EXTREMITIES: Without edema. No evidence of clubbing. LYMPHATICS: Negative. Pulses equal. NEUROLOGIC: Moves all 4 extremities. MEDICAL IMAGING STUDIES: Bibasilar atelectatic changes with bibasilar infiltrates, seems to be greater on the right than the left, but the patient did have a very poor inspiratory effort on this particular study. LABORATORY DATA: Arterial blood gas had not been performed on this admission, but will be ordered. His CBC today revealed a hemoglobin and hematocrit of 11.5 and 34.8, white count is 10,300, platelet count 181,000. INR 1.2. Electrolytes on admission, sodium 140, potassium 4.2, chloride 98, CO2 of 34, BUN of 22, creatinine 1.5. His EGFR of 46. Troponin less than 0.06. ProBNP 1010, which is slightly elevated. ASSESSMENT: 1. Acute respiratory insufficiency. 2. Acute dyspnea. 3. History of carcinoma of the oral cavity, specifically at the base of the [address] [place] [address] CONSULTATION Name: ROGE KLEIN Room: [address] IN M.R.#: [id number] Admission: 03/11/18 Attend Phys: Jorje Isaac MD Discharge: Date of : 46 Report #: [id number] tongue. It was a T2N2 stage. He is status post treatment in the form of radiation/chemotherapy under the care of the radiation oncologist and medical oncologist. 4. History of recurrent pneumonia. RECOMMENDATION: We will obtain immunoglobulin studies in view of the fact that the patient has this "history of recurrent pneumonias." Continue with antibiotic therapy. Initiate aerosol treatments. We will have Respiratory provide incentive spirometry instructions, also we will start EzPAP as well. Arterial blood gas will be obtained to determine the level of oxygenation at this time. Physical Therapy will be asked to see the patient. He would benefit from being out of bed to some degree if possible to allow improvement in regards to his respiratory effort. I feel that he needs to take deeper breaths and hopefully the IS will help him with that as well. The patient's home medications and pain medication will be addressed by the Hospitalist Service. <ELECTRONICALLY SIGNED> By: Wojciech Carroll MD 03/13/18 0938 1128 [id number] Carroll MD /nt
--- NOTE | 2018-03-13 11:18 | NUR ---
ASSUMED CARE OF PT AT 0730. PT RESTING IN BED. FRIEND AT BEDSIDE. PT A&0X4, COMPLAINS OF PAIN TO MOUTH. TREATED WITH PRN HYDROCODONE WITH RELIEF. PT ON 2L NC AT BEGINNING OF SHIFT, SAT 88%, PT OXYGEN INCREASED TO 3L NC SAT 92%. PT DENIES ANY SHORTNESS OF BREATH. PT TRACING SR ON THE SUCTION PLATE ROLLER HAND. EDEMA NOTED TO BILATERAL LE'S. PEG TUBE IN PLACE. DRESSING NOTED TO BE SATURATED AND CHANGED BY THIS RN. PT TAKES 2 CANS OF JEVITY 1.5 AGUSTIN TID. PT TOLERATED AM FEEDING WELL. PT UP SBA TO BATHROOM. PT GOAL FOR TODAY IS TO AMBULATE HALLWAYS WITH PHYSICAL THERAPY AND PAIN MGMT. REDNESS NOTED TO PT BUTTOCKS. BARRIER CREAM PLACED. ASPIRATION PRECAUTIONS IN PLACE. HOB UP 30 DEGREES. PULMONARY HERE TO SEE PT THIS AM AND ORDERED REPEAT CXR IN AM. AM ASSESSMENT CHARTED. MEDICATIONS PER MAR CRUSHED AND IN TUBE. PT REPOSITIONED EVERY 2 HOURS FOR COMFORT. HOURLY ROUNDING OBSERVED. BED IN LOW POSITION. BED ALARM IN PLACE. FALL PRECAUTIONS IN PLACE. CALL LIGHT WITHIN REACH. WILL CONTINUE PLAN OF CARE.
--- NOTE | 2018-03-13 17:07 | NUR ---
NO ACUTE CHANGES THROUGHOUT SHIFT. REFER TO CHARTING. PT WORKED WITH PHYSICAL AND OCCUPATIONAL THERAPY-TOLERATED WELL. SLOWLY PROGRESSING TOWARDS GOALS. DR OSEGUERA HERE TODAY AND HAD LENGTHY CONVERSATION WITH FAMILY REGARDING DISCHARGE PLANNING. PT TO HAVE REPEAT CXR IN AM PER PULMONARY. PT CONTINUES TO TRACE SR ON THE NIGHT SHIFT MANAGER. ON 3L NC SAT UPPER 90'S. DENIES ANY SHORTNESS OF BREATH. PEG TUBE IN PLACE. FEEDINGS GIVEN AT APPROXIMATELY 1000 AND 1500 PER PET REQUEST AND WILL HAVE THIRD FEEDING THIS EVENING. DRESSING TO PEG TUBE CHANGED THIS AFTERNOON. PT UP SBA TO BATHROOM. ASPIRATION PRECAUTIONS IN PLACE- HOB AT 30 DEGREES AT ALL TIMES. PT UP TO RECLINER THROUGHOUT SHIFT MULTIPLE TIMES, TOLERATED WELL. PT COMPLAINS OF PAIN TO MOUTH AND GENERALIZED FROM CANCER- TREATED WITH PRN HYDROCODONE WITH RELIEF. MEDICATIONS PER MAR CRUSHED IN PEG TUBE. PT REPOSITIONED EVERY 2 HOURS FOR COMFORT. HOURLY ROUNDING OBSERVED. BED IN LOW POSITION. BED ALARM IN PLACE. FALL PRECAUTIONS IN PLACE. CALL LIGHT WITHIN REACH. WILL CONTINUE PLAN OF CARE.
[2018-03-14] VITALS: BP 107/55; BP 114/53
[2018-03-14 04:00] VITALS: BP 116/59
--- NOTE | 2018-03-14 04:27 | NUR ---
ASSUMED PT CARE AT 1930. NURSING ASSESSMENT COMPLETED AT START OF SHIFT. PT VOICED NO CONCERNS. PRN PAIN MEDICATION ADMINSTERED. SEE EMAR FOR DOCUMENATION. PT EDUCATED ON IMPORTANCE OF PEG TUBE CARE. PT OBSERVED ATTEMPING OT STICK PEN CAP INTO PEG TUBE STATING IT WAS CLOGGED AND NEEDED TO BE UNCLOGGED. PT EDUCATION REENFORCED. PT HIGH FALL RISK, REFUSES BED ALARM. EDUCATION PROVIDED ON IMPORTANCE OF USING CALL LIGHT AND NOT GETTING UP WITHOUT STAFF ASSISTANCE. PT VOICED UNDERSTANDING. CALL LIGHT WITHIN REACH. NO FALLS THIS SHIFT.
--- NOTE | 2018-03-14 07:20 | NUR ---
CHANGE OF SHIFT BEDSIDE REPORT GIVEN PATIENT SEEN IN ROOM IN BED ASLEEP ASSUMED PATIENT CARE
[2018-03-14 11:27] VITALS: BP 136/71
[2018-03-14] MEDS ORDERED: ZYVOX600 MG PO (12:05)
[2018-03-14] MEDS ORDERED: LEVAQUIN 750 M750 MG PO (12:05)
[2018-03-14] MEDS ORDERED: PREDNISONE 10 M10 M1 PER TUBE (12:05)
[2018-03-14 12:34] VITALS: BP 107/49
--- NOTE | 2018-03-14 13:30 | NUR ---
PATIENT DCD TO HOME IV AND HEART MONITOR REMOVED PERSONAL BELONGINGS RETURNED DISCHARGE INFORMATION REVIEWED, ACKNOWKLEDGED, AND SIGNED COPIES GIVEN PATIENT REFUSED DISCHARGE WOUND PICTURES PATIENT ASSISTED OUT VIA WC WITH 3LNC OXYGEN TO WAITING CAR
== END 2018-03-14 13:30 | disposition home health service (06) | DRG 177 ==
LOC: M.ERS 18:58 → M.2W 20:02 → M.TBA-ER 20:02 → M.2W 21:00
PROVIDERS: Family Medicine; Internal Medicine Pulmonary Disease; ADMIT Internal Medicine
DX: J69.0 Pneumonitis due to inhalation of food and vomit (principal); J96.20 Acute and chronic respiratory failure, unspecified whether with hypoxia or hypercapnia; N17.0 Acute kidney failure with tubular necrosis; J44.0 Chronic obstructive pulmonary disease with (acute) lower respiratory infection; J44.1 Chronic obstructive pulmonary disease with (acute) exacerbation; I10 Essential (primary) hypertension; E11.9 Type 2 diabetes mellitus without complications; G89.29 Other chronic pain; M54.9 Dorsalgia, unspecified; Z85.810 Personal history of malignant neoplasm of tongue; Z93.1 Gastrostomy status; Z79.2 Long term (current) use of antibiotics; Z79.899 Other long term (current) drug therapy; Z88.6 Allergy status to analgesic agent

== ENCOUNTER 2018-04-26 09:21 | Emergency (ER) | payer OTHER ==
[~2018-04-26] VITALS: Ht 170.2 cm; Wt 67.7 kg
[2018-04-26] MEDS ORDERED: VENTOLIN HFA 1818 GM INH (09:32)
[2018-04-26 10:05] VITALS: BP 126/83
== END 2018-04-26 10:06 | disposition home or self-care (01) ==
LOC: M.ERS 09:21
DX: K94.23 Gastrostomy malfunction (principal); I10 Essential (primary) hypertension; G89.29 Other chronic pain; E11.9 Type 2 diabetes mellitus without complications; Z85.810 Personal history of malignant neoplasm of tongue

== ENCOUNTER 2018-04-26 19:21 | Emergency (ER) | payer OTHER ==
[~2018-04-26] VITALS: Ht 180.3 cm; Wt 68.0 kg
[~2018-04-26 19:21] MED LIST changes: +VENTOLIN HFA 1818 GM INH
[2018-04-26 19:53] VITALS: BP 118/57
== END 2018-04-26 19:53 | disposition home or self-care (01) ==
LOC: M.ERS 19:21
DX: T85.528A Displacement of other gastrointestinal prosthetic devices, implants and grafts, initial encounter (principal); I10 Essential (primary) hypertension; G89.29 Other chronic pain; E11.9 Type 2 diabetes mellitus without complications; Z85.810 Personal history of malignant neoplasm of tongue

== ENCOUNTER 2018-04-27 10:21 | Emergency (ER) | payer OTHER ==
[~2018-04-27] VITALS: Ht 180.3 cm; Wt 68.0 kg
[2018-04-27 11:11] VITALS: BP 122/63
== END 2018-04-27 11:12 | disposition home or self-care (01) ==
LOC: M.ERS 10:21
DX: K94.23 Gastrostomy malfunction (principal); I10 Essential (primary) hypertension; G89.29 Other chronic pain; E11.9 Type 2 diabetes mellitus without complications; Z85.810 Personal history of malignant neoplasm of tongue

== ENCOUNTER 2018-04-27 14:00 | Emergency (ER) | payer OTHER ==
[~2018-04-27] VITALS: Ht 180.3 cm; Wt 68.0 kg
[2018-04-27 15:22] LABS: HEMATOCRIT 31.6 % (42.0-52.0); HEMOGLOBIN 10.1 gm/dL (14.0-18.0); MCH 28.5 pg (26.0-34.0); MCV 89.2 fL (80.0-100.0); MPV 7.8 fl. (7.2-11.1); NUCLEATED RBCS 0 /100WBC; PLATELET COUNT* 273 thou/uL (150-400); RBC 3.54 mil/uL (4.50-6.00); RDW-CV 17.5 % (10.5-14.5); WBC 13.3 thou/uL (4.0-11.0)
[2018-04-27 15:44] LABS: ABSOLUTE LYMPHOCYTES 0.8 thou/uL (0.8-5.3); ABSOLUTE MONOCYTES 0.5 thou/uL (0.0-1.2); ANISOCYTOSIS 1+; MACROCYTES 1+; PLATELET ESTIMATE ADEQUATE
[2018-04-27 15:53] LABS: CALCIUM 9.5 mg/dL (8.5-10.1); CREATININE 0.9 mg/dL (0.6-1.3)
[2018-04-27 15:58] LABS: TOTAL BILIRUBIN 0.4 mg/dL (<0.1-1.0); TOTAL PROTEIN 7.7 g/dL (6.4-8.2)
[2018-04-27 17:08] VITALS: BP 134/82
== END 2018-04-27 17:09 | disposition home or self-care (01) ==
LOC: M.ERS 14:00
PROVIDERS: Emergency Medicine Emergency Medical Services
DX: Z43.4 Encounter for attention to other artificial openings of digestive tract (principal); I10 Essential (primary) hypertension; G89.29 Other chronic pain; E11.9 Type 2 diabetes mellitus without complications; Z85.810 Personal history of malignant neoplasm of tongue

== ENCOUNTER 2018-04-28 09:31 | Inpatient (IN) | payer OTHER ==
[~2018-04-28] VITALS: Ht 180.3 cm; Wt 69.4 kg
[2018-04-28 09:34] VITALS: BP 135/63
[2018-04-28 10:03] LABS: HEMATOCRIT 30.5 % (42.0-52.0); HEMOGLOBIN 9.7 gm/dL (14.0-18.0); MCH 28.5 pg (26.0-34.0); MCHC 31.9 g/dL (28.0-37.0); MCV 89.4 fL (80.0-100.0); MPV 7.8 fl. (7.2-11.1); NUCLEATED RBCS 0 /100WBC; PLATELET COUNT* 263 thou/uL (150-400); RBC 3.41 mil/uL (4.50-6.00); WBC 14.2 thou/uL (4.0-11.0)
[2018-04-28 10:08] LABS: INR 1.1; PROTIME 10.9 Seconds (9.20-11.50)
[2018-04-28 10:10] LABS: ANION GAP 6 mmol/L (7-16); BUN 20 mg/dL (7-18); CHLORIDE 99 mmol/L (98-107); CO2 34 mmol/L (21-32); GLUCOSE 136 mg/dL (70-99); POTASSIUM 3.9 mmol/L (3.5-5.1); SODIUM 139 mmol/L (136-145)
[2018-04-28 10:20] LABS: ALBUMIN 2.9 g/dL (3.4-5.0); ALKALINE PHOSPHATASE 137 U/L (46-116); LIPASE 45 U/L (73-393); NT-PRO BRAIN NAT PEPTIDE 360 pg/mL (<300); SGOT 17 U/L (15-37); SGPT 17 U/L (30-65); TOTAL BILIRUBIN 0.6 mg/dL (<0.1-1.0); TOTAL PROTEIN 7.6 g/dL (6.4-8.2); TROPONIN-I LEVEL <0.06 ng/mL (<0.06)
[2018-04-28 10:36] LABS: ABSOLUTE EOSINOPHILS 0.1 thou/uL (0.0-0.7); ABSOLUTE LYMPHOCYTES 0.4 thou/uL (0.8-5.3); ABSOLUTE MONOCYTES 1.3 thou/uL (0.0-1.2); ABSOLUTE NEUTROPHILS 12.4 thou/uL (1.6-8.1)
[2018-04-28 10:37] LABS: ANISOCYTOSIS 1+; PLATELET ESTIMATE ADEQUATE; POLYCHROMASIA Occasional
[2018-04-28 11:33] VITALS: BP 121/52
[2018-04-28 12:12] VITALS: BP 127/60
[2018-04-28 12:57] LABS: URINE BILIRUBIN NEGATIVE (Negative); URINE BLOOD NEGATIVE (Negative); URINE CLARITY CLEAR; URINE COLOR YELLOW; URINE GLUCOSE-RANDOM NEGATIVE (Negative); URINE KETONES NEGATIVE (Negative); URINE LEUKOCYTES-REFLEX NEGATIVE (Negative); URINE NITRITE-REFLEX NEGATIVE (Negative); URINE PROTEIN NEGATIVE (Negative); URINE UROBILINOGEN 0.2 E.U./dl (0.2-1.0)
[2018-04-28 16:00] VITALS: BP 121/57
--- NOTE | 2018-04-28 17:13 | EKG ---
[place] [address] ELECTROCARDIOGRAM REPORT Name: ROGE KLEIN Room: [address] ADM IN M.R.#: [id number] Admission: 04/28/18 Attend Phys: Pardeep Shi MD Discharge: Date of : 46 Report #: [id number] THIS REPORT FOR: //name// [facility] ED Test Date: 2018-04-28 Test Time: 10:05:54 Pat Name: ROGE KLEIN Department: Room: [facility] Gender: M Staffing Executive: Kita RUELAS : 1950 Requested By: Lorenzo Banegas Order Number: [id number] MD: Bakari Alaniz Measurements Intervals [place] Rate: 91 P: 65 NV: 139 QRS: 47 QRSD: 85 T: 1 QT: 351 QTc: 432 Interpretive Statements Sinus rhythm Borderline low voltage, extremity leads Baseline wander in lead(s) I,II,aVR Compared to ECG 03/11/2018 19:25:25 Sinus tachycardia no longer present Electronically Signed On 04-28-2018 17:13:39 CDT by Bakari Alaniz [email or web address] <ELECTRONICALLY SIGNED> By: Bakari Aalniz MD, [facility] 04/28/18 1713 1005 1005 Bakari Alaniz MD, [facility] /EPI
[2018-04-28 20:00] VITALS: BP 124/65
[2018-04-29] VITALS (8 sets, daily range): BP systolic 124–132; BP diastolic 60–70
[2018-04-29 05:05] LABS: ABSOLUTE LYMPHOCYTES 0.3 thou/uL (0.8-5.3); ABSOLUTE NEUTROPHILS 6.9 thou/uL (1.6-8.1); BASOPHILS 0.1 %; HEMATOCRIT 27.6 % (42.0-52.0); HEMOGLOBIN 9.2 gm/dL (14.0-18.0); LYMPHOCYTES 3.6 %; MCH 29.7 pg (26.0-34.0); MCHC 33.2 g/dL (28.0-37.0); MCV 89.6 fL (80.0-100.0); MONOCYTES 0.6 %; MPV 8.1 fl. (7.2-11.1); NUCLEATED RBCS 0 /100WBC; PLATELET COUNT* 231 thou/uL (150-400); POLYS 95.7 %; RBC 3.08 mil/uL (4.50-6.00); RDW-CV 17.7 % (10.5-14.5); WBC 7.3 thou/uL (4.0-11.0)
[2018-04-29 05:12] LABS: INR 1.2
[2018-04-29 05:44] LABS: ALBUMIN 2.4 g/dL (3.4-5.0); CALCIUM 8.3 mg/dL (8.5-10.1); CREATININE 0.8 mg/dL (0.6-1.3); POTASSIUM 4.2 mmol/L (3.5-5.1); TOTAL BILIRUBIN 0.4 mg/dL (<0.1-1.0); TOTAL PROTEIN 6.1 g/dL (6.4-8.2)
[2018-04-30 08:55] VITALS: BP 130/64
[2018-04-30] MEDS ORDERED: LASIX 20 MG TAB20 MG PO (10:25)
[2018-04-30] MEDS ORDERED: NORVASC5 MG PO (10:25)
--- NOTE | 2018-04-30 11:07 | CON ---
[facility] [address] [place] [address] CONSULTATION Name: ROGE KLEIN Room: [address] IN M.R.#: [id number] Admission: 04/28/18 Attend Phys: Pardeep Shi MD Discharge: Date of : 46 Report #: [id number] THIS REPORT FOR: //name// CC: Pardeep Dickson Bonds DATE OF SERVICE: 04/29/2018 ATTENDING PHYSICIAN: Pardeep Shi M.D. REASON FOR EVALUATION: Pneumonitis. HISTORY OF PRESENT ILLNESS: Chart reviewed, patient examined. This is a 67-year-old gentleman whom I am familiar with, I saw him in January of this year with pneumonitis. At that point, he had persistent fevers, felt to have multifocal pneumonitis. The patient has issues with residual related to head and neck cancer. He has a chronic enteral feeding via a PEG tube, this had become dislodged. He is here from his standpoint secondary to that. He states he has been actually feeling better. He is on supplemental oxygen at home, although he denies significant amount cough that is nonproductive. He has not had significant fever that he is aware of. He has been tolerating increased activity. Chest x-ray did suggest basilar pneumonitis, although initial comparison suggested possibility of improvement. He was then started empirically on vancomycin and levofloxacin. he is scheduled to have the tube replaced. ALLERGIES: None known. MEDICATIONS: Include morphine, Levaquin, one-time dose of cefazolin from the procedure, vancomycin, lorazepam, montelukast, enoxaparin, ipratropium, albuterol inhaler, ranitidine, atorvastatin, pantoprazole, alprazolam, hydrocodone. PAST MEDICAL HISTORY: As described above, has history of diabetes mellitus. He has had a malignant neoplasm of the base of the tongue that goes back to 2017, on chemotherapy and radiation. He is left with residual dysphagia. He had a G-tube placed at that point and he has been utilizing it. Hypertension, chronic back pain and previous surgery. SOCIAL HISTORY: Nonsmoker, no ethanol. FAMILY HISTORY: Noncontributory. REVIEW OF SYSTEMS: As above. PHYSICAL EXAMINATION: [place] [address] CONSULTATION Name: ROGE KLEIN Room: [address]#: [id number] Admission: 04/28/18 Attend Phys: Pardeep Shi MD Discharge: Date of : 46 Report #: [id number] GENERAL: He is chronically ill-appearing. He is pleasant, cooperative. He is not encephalopathic. He is in gvgh-qf-vojynkph distress, although he is not toxic. VITAL SIGNS: Temperature 98, pulse 86, respirations 18, blood pressure 124/64. SKIN: Warm, dry, no rashes. HEENT: ____ disfigurement from the surgery. NECK: Supple. LUNGS: Scattered coarse breath sounds. HEART: Regular. ABDOMEN: Soft, nontender at the G-tube site. GENITOURINARY AND RECTAL: Deferred. LABORATORY DATA: Blood cultures sterile thus far. Electrolytes: Sodium 141, potassium 4.2, chloride 104, bicarbonate is 27. BUN and creatinine 15 and 0.8. Anion gap of 10. LFTs unremarkable. Albumin of 2.4, total protein 6.1, estimated GFR of 96. CBC: White count of 7.3, H and H 9.2 and 27.6, platelets of 231. Urinalysis unremarkable. CT abdomen and pelvis showed patchy pulmonary alveolar infiltrate in the left lower lobe, may be slightly worse compared to CT on February of this year, mild right basilar pulmonary alveolar infiltrate, improved. Lactic acid 1.7. ASSESSMENT AND PLAN: Pneumonitis. It is difficult to ascertain if indeed this is worse. Clinically, ____ significant worsening in overall status. I think it is reasonable to back off on the antibiotics. We will transition to oral. Review of cultures shows polymicrobial growth back in February with Serratia and was susceptible to levofloxacin as well as group B strep. I think it is reasonable to continue levofloxacin, discontinue the vancomycin and see how he does over the course of the next 24 to 48 hours. G-tube placement is pending. <ELECTRONICALLY SIGNED> By: Zachary Peres MD 04/30/18 1107 1532 [id number] Peres MD /nt
[2018-04-30 16:00] VITALS: BP 131/65
[2018-04-30 20:15] VITALS: BP 127/63
[2018-05-01] VITALS: BP 132/63
[2018-05-01 04:37] LABS: ABSOLUTE LYMPHOCYTES 0.4 thou/uL (0.8-5.3); ABSOLUTE MONOCYTES 0.6 thou/uL (0.0-1.2); BASOPHILS 0.3 %; HEMOGLOBIN 9.2 gm/dL (14.0-18.0); LYMPHOCYTES 4.4 %; MCH 29.4 pg (26.0-34.0); MCHC 32.9 g/dL (28.0-37.0); MCV 89.4 fL (80.0-100.0); MPV 7.8 fl. (7.2-11.1); NUCLEATED RBCS 0 /100WBC; PLATELET COUNT* 226 thou/uL (150-400); POLYS 89.3 %; RBC 3.14 mil/uL (4.50-6.00); RDW-CV 17.4 % (10.5-14.5)
[2018-05-01 05:01] LABS: ALBUMIN 2.4 g/dL (3.4-5.0); CALCIUM 8.5 mg/dL (8.5-10.1); CREATININE 0.8 mg/dL (0.6-1.3); POTASSIUM 3.6 mmol/L (3.5-5.1); TOTAL BILIRUBIN 0.2 mg/dL (<0.1-1.0); TOTAL PROTEIN 5.8 g/dL (6.4-8.2)
[2018-05-01 07:10] VITALS: BP 130/64
[2018-05-01 11:38] VITALS: BP 124/64
[2018-05-01 12:35] VITALS: BP 124/64
--- NOTE | 2018-05-10 12:05 | CON ---
[facility] [address] [place] [address] CONSULTATION Name: ROGE KLEIN Room: [address] IN M.R.#: [id number] Admission: 04/28/18 Attend Phys: Pardeep Shi MD Discharge: 05/01/18 Date of : 46 Report #: [id number] THIS REPORT FOR: //name// CC: Pardeep Bonds DATE OF SERVICE: 04/28/2018 REFERRING PHYSICIAN: Pardeep Shi M.D. REASON FOR CONSULTATION: Evaluate for gastrostomy tube placement. IMPRESSION: 1. Dislodged gastrostomy tube placement with need for replacement. 2. Oropharyngeal dysphagia with recommendation that the patient continue to be completely n.p.o. 3. History of head and neck cancer, which the patient has undergone treatment of the same. 4. Anemia of chronic disease. 5. Chronic obstructive pulmonary disease, which is oxygen required. RECOMMENDATIONS: 1. Proceed with upper endoscopy and gastrostomy tube placement tomorrow afternoon. 2. The patient will need to stay strictly n.p.o. This has already been recommended by the same. I discussed this plan with the patient as well and contacted his by phone and they are agreeable for me to proceed. HISTORY OF PRESENT ILLNESS: The patient is a pleasant 67-year-old white male with a history of chronic oropharyngeal dysphagia for which he has had to have a chronic gastrostomy tube placement since last year and who was admitted to hospital with fevers with cough as well. He has history of head and neck cancer for which he underwent chemo and radiation therapy for the same. He has had chronic dysphagia with aspiration and he has had failed video swallow studies in the past. He states that his feeding tube was came out a few days prior to admission and has apparently had a lot of problems with the feeding tube falling out, requiring placement by the Emergency Room with a balloon replacement tube. He is currently fed completely by his feeding tube and gets water boluses. He takes 2 cans of Jevity 1.5 three times daily and gets so as before and after as well as during his feedings. His was not able to quantitate . He denies any complaints of any reflux or indigestion. [place] [address] CONSULTATION Name: ROGE KLEIN SORIN Room: [address] [place] [facility].#: [id number] Admission: 04/28/18 Attend Phys: Pardeep Shi MD Discharge: 05/01/18 Date of : 46 Report #: [id number] his bowels or bowel frequency or any bleeding. He is admitted to the hospital because of issues related to the same. ALLERGIES: None. MEDICATIONS AT HOME: Include hydrocodone, alprazolam, metformin, montelukast, albuterol and atorvastatin. PAST MEDICAL HISTORY: Remarkable for hypertension. He has had history of head and neck cancer, base of his tongue, recurrent chemo and radiation therapy in 2017. Gastrostomy tube placed by Interventional Radiology. He has had back surgery and chronic back pain as well. SOCIAL HISTORY: Not known, but suspect he probably had history of a previous tobacco and alcohol use. FAMILY HISTORY: Not pertinent. PHYSICAL EXAMINATION: GENERAL: Revealed ill-appearing 67-year-old gentleman who is awake and alert. CARDIOPULMONARY: Reveals a regular rate and rhythm. LUNGS: Clear. ABDOMEN: Soft. His previous gastrostomy tube site is completely closed off and does not appear to be infectious related to the same. LABORATORY DATA: Revealed a white count of 14.2; hemoglobin 9.7; platelet count 263,000; MCV is 89.4 and RDW 18.0. Sodium 139, potassium 3.9, chloride 99, bicarbonate is 34, his BUN is 20 and creatinine 1.0. His GFR is 74. Total bilirubin 0.6, alkaline phosphatase is , AST 17, ALT 17 and albumin is 2.9. RADIOLOGICAL DATA: CT scan of the abdomen with IV contrast revealed an atrophic pancreas and was otherwise unremarkable. There are also appeared to be a soft tissue structure in the inferior aspect of the right inguinal canal, which may be a right testis within the inguinal canal. He also had patchy pulmonary alveolar infiltrates. DISCUSSION: At the present time, the patient is in need of a gastrostomy tube. We will proceed with upper endoscopy, possible gastrostomy tube placement tomorrow and make further recommendations thereafter. <ELECTRONICALLY SIGNED> By: Jaya Díaz DO 05/10/18 1205 [id number] Díaz DO /nt
== END 2018-05-01 12:35 | disposition home health service (06) | DRG 919 ==
LOC: M.ERS 09:31 → M.TBA-ER 11:02 → M.3W 11:02 → M.2W 11:02 → M.3W 04-29 13:10
PROVIDERS: Family Medicine; Internal Medicine Gastroenterology; ADMIT Internal Medicine
PROC: 0D20XUZ Change Feeding Device in Upper Intestinal Tract, External Approach (ICD-10-PCS; principal; 2018-04-29)
PROC: 0DJ08ZZ Inspection of Upper Intestinal Tract, Via Natural or Artificial Opening Endoscopic (ICD-10-PCS; principal; 2018-04-29)
DX: T85.528A Displacement of other gastrointestinal prosthetic devices, implants and grafts, initial encounter (principal); A41.9 Sepsis, unspecified organism; J69.0 Pneumonitis due to inhalation of food and vomit; J96.20 Acute and chronic respiratory failure, unspecified whether with hypoxia or hypercapnia; J44.0 Chronic obstructive pulmonary disease with (acute) lower respiratory infection; J44.1 Chronic obstructive pulmonary disease with (acute) exacerbation; D63.8 Anemia in other chronic diseases classified elsewhere; K31.89 Other diseases of stomach and duodenum; I10 Essential (primary) hypertension; G89.29 Other chronic pain; E78.5 Hyperlipidemia, unspecified; M54.9 Dorsalgia, unspecified; E11.65 Type 2 diabetes mellitus with hyperglycemia; Y83.8 Other surgical procedures as the cause of abnormal reaction of the patient, or of later complication, without mention of misadventure at the time of the procedure; Y92.89 Other specified places as the place of occurrence of the external cause; Z91.14 Patient's other noncompliance with medication regimen; Z79.4 Long term (current) use of insulin; Z79.2 Long term (current) use of antibiotics; Z79.899 Other long term (current) drug therapy; Z85.810 Personal history of malignant neoplasm of tongue

== ENCOUNTER → 2018-07-01 | Outpatient (CLI) | payer OTHER ==
[~2018-07-01] MED LIST changes: +LASIX 20 MG TAB20 MG PO; +NORVASC5 MG PO
--- NOTE | 2018-07-13 03:05 | ONC ---
[place] [address] RADIATION ONCOLOGY NOTE Name: ROGE KLEIN Room: [facility]#: [id number] Admission: 07/01/18 Attend Phys: Thomas Barajas MD Discharge: Date of : 46 Report #: [id number] THIS REPORT FOR: //name// CC: Thomas Vargas DATE OF SERVICE: 07/01/2018 REFERRING PHYSICIANS: Include Dr. Bonds; Dr. Dutton at [facility] Pulmonology; Dr. Bonds; Vannesa Franco MD; Jo Vargas MD. [facility] phone is [phone]. PRIMARY SITE AND HISTOPATHOLOGY: The patient received chemoradiotherapy for a stage III base of tongue cancer and he completed radiation treatments on 04/02/2017. PROCEDURE: Nasopharyngolaryngoscopy. FINDINGS: On nasopharyngolaryngoscopy, after administration of a small amount of 2% viscous lidocaine orally, 2% viscous lidocaine to the left nostril, there were no visible lesions in the nasopharynx. There were no visible lesions in the posterior oropharynx. Base of tongue had no visible lesions. The true vocal cords were normally mobile bilaterally. The epiglottis was covered in dried mucus. So, the surface was not visible. There was no clear evidence of any head and neck cancer. A referral will be placed for him to see his ear, nose and throat physician to see if they can assess that area where he has a significant amount of dried mucus on his epiglottis. Thank you for allowing me to participate in the care of this patient. <ELECTRONICALLY SIGNED> By: Thomas Barajas MD 07/13/18 0305 1235 [id number] Barajas MD /nt
--- NOTE | 2018-07-13 03:16 | ONC ---
[address] [address] RADIATION ONCOLOGY NOTE Name: ROGE KLEIN Room: [facility]#: [id number] Admission: 07/01/18 Attend Phys: Thomas Barajas MD Discharge: Date of : 46 Report #: [id number] THIS REPORT FOR: //name// CC: Thomas Dutton DATE OF SERVICE: 07/01/2018 [facility] phone is [phone]. REFERRING PHYSICIANS: Include Randolph Bonds DO; Vannesa Franco MD and Jo Vargas MD. PRIMARY SITE AND HISTOPATHOLOGY: The patient received chemoradiotherapy for a stage III base of tongue cancer. He completed radiation treatments on 04/02/2017. INTERVAL NOTE: The patient is taking all his nutrition through the gastric tube. He has had issues with aspiration pneumonia and has been treated at [facility] in the past. He takes about 7-8 feedings through his gastric tube per day. He takes about 4 hydrocodone a day. SOCIAL HISTORY: Cigarettes, he continues to smoke about 4 cigarettes a day. REVIEW OF SYSTEMS: RESPIRATORY: The patient does get short of breath on mild exertion, which is stable. MUSCULOSKELETAL: The patient has good range of motion of his upper extremities. PHYSICAL EXAMINATION: VITAL SIGNS: The patient weighed 154 pounds on 07/01/2018. He was 168.8 pounds on 08/04/2018. He said he was in 146 pounds a few weeks ago. Then, on 07/01/2018, blood pressure was 137/67, respirations 24, pulse 92, oxygen saturation 94%. LYMPH NODES: He had no palpable cervical or supraclavicular lymphadenopathy. HEAD, EYES, EARS, NOSE AND THROAT: The patient is edentulous. He wears upper dentures. There were no suspicious visible lesions in the mouth. There were no suspicious palpable masses in the mouth. On nasopharyngolaryngoscopy, after administration of 2% viscous lidocaine orally 2% viscous lidocaine to the left nostril, there were no visible lesions in the nasopharynx. No visible lesions in the posterior oropharynx. The epiglottis was completely encased with dry mucous. The mucosal surface cannot be seen. True vocal cords were [place] [address] RADIATION ONCOLOGY NOTE Name: ROGE KLEIN Room: [facility]#: [id number] Admission: 07/01/18 Attend Phys: Thomas Barajas MD Discharge: Date of : 46 Report #: [id number] LABORATORY DATA: He had lab work at [facility] on 05/13/2018, sodium was 136, potassium 4.0, BUN 7, creatinine 0.6 and on 05/13/2018, white blood count was 10.99, hemoglobin 7.9 and platelets 149,000. RADIOLOGIC DATA: Chest CT back on 05/10/2018, which revealed multifocal consolidations in left upper lobe, middle lobe, which were consistent with multifocal infections and he had a saccular aortic aneurysm in the aortic isthmus. ASSESSMENT: 1. History of head and neck cancer- There is no clear evidence of head and neck cancer at this time, but he will be scheduled for lab work and have a PET CT scan in the next 3-6 weeks. He will be asked to schedule a followup appointment to see me afterwards. He will be referred to his ear, nose and throat physician, Dr. Oliva to assess his epiglottis, which looks encrusted in dried mucus to see if that can be managed. If they are able to resolve that issue, then maybe a swallowing study can be done in the future. 2. Nutrition-the patient will be referred to his ear, nose and throat physician, Dr. Mitchell to assess that epiglottis, which is encrusted in dried mucus and then, if that can be managed, a video swallow can be set up in the future. In the meantime, he was told to try to increase his nutritional intake to keep his weight stable. 3. Diabetes- The patient takes metformin that is managed by his referring physicians. 4. Hyperlipidemi- The patient takes Lipitor that is managed by his referring physicians. Thank you for allowing me to participate in the care of this patient. <ELECTRONICALLY SIGNED> By: Thomas Barajas MD 07/13/18 0316 1254 [id number] Barajas MD /nt
== END ==
LOC: M.RTH 04:58
DX: Z08 Encounter for follow-up examination after completed treatment for malignant neoplasm (principal); E78.5 Hyperlipidemia, unspecified; E11.9 Type 2 diabetes mellitus without complications; Z85.89 Personal history of malignant neoplasm of other organs and systems

== ENCOUNTER 2018-09-26 13:47 | Inpatient (IN) | payer OTHER ==
[~2018-09-26] VITALS: Ht 180.3 cm; Wt 77.1 kg
[2018-09-26] VITALS (9 sets, daily range): BP systolic 98–141; BP diastolic 46–62
[2018-09-26 14:06] LABS: HEMATOCRIT 42.1 % (42.0-52.0); HEMOGLOBIN 13.9 gm/dL (14.0-18.0); MCHC 32.9 g/dL (28.0-37.0); MCV 88.2 fL (80.0-100.0); MPV 9.5 fl. (7.2-11.1); NUCLEATED RBCS 0 /100WBC; PLATELET COUNT* 167 thou/uL (150-400); RBC 4.77 mil/uL (4.50-6.00); RDW-CV 15.8 % (10.5-14.5); WBC 36.6 thou/uL (4.0-11.0)
[2018-09-26 14:09] LABS: BE 4.5 mmol/L (-2 to +3); PCO2 36.7 mmHg (35.0-45.0); pH 7.496 (7.340-7.450)
[2018-09-26 14:21] LABS: APTT 29.4 Seconds (25.0-31.3); INR 1.1; PROTIME 10.9 Seconds (9.20-11.50)
[2018-09-26 14:22] LABS: ANION GAP 9 mmol/L (7-16); BUN 36 mg/dL (7-18); CALCIUM 9.9 mg/dL (8.5-10.1); CHLORIDE 96 mmol/L (98-107); CO2 33 mmol/L (21-32); CREATININE 1.2 mg/dL (0.6-1.3); GLUCOSE 167 mg/dL (70-99); POTASSIUM 4.5 mmol/L (3.5-5.1); SODIUM 138 mmol/L (136-145)
[2018-09-26 14:32] LABS: ALBUMIN 3.7 g/dL (3.4-5.0); ALKALINE PHOSPHATASE 84 U/L (46-116); NT-PRO BRAIN NAT PEPTIDE 147 pg/mL (<300); SGOT 42 U/L (15-37); SGPT 28 U/L (30-65); TOTAL BILIRUBIN 1.4 mg/dL (<0.1-1.0); TOTAL PROTEIN 8.5 g/dL (6.4-8.2); TROPONIN-I LEVEL <0.06 ng/mL (<0.06)
[2018-09-26 14:53] LABS: ABSOLUTE LYMPHOCYTES 1.8 thou/uL (0.8-5.3); ABSOLUTE MONOCYTES 2.6 thou/uL (0.0-1.2); ABSOLUTE NEUTROPHILS 32.2 thou/uL (1.6-8.1); PLATELET ESTIMATE ADEQUATE
[2018-09-26 14:55] LABS: TOXIC GRANULATION 1+
[2018-09-26] MEDS ORDERED: PREDNISONE 10 M10 MG PO (16:24)
[2018-09-26 16:46] LABS: MAGNESIUM 1.7 mg/dL (1.8-2.4); PHOSPHORUS* 2.7 mg/dL (2.5-4.9)
--- NOTE | 2018-09-26 18:12 | NUR ---
PATIENT REMAINS ON BIPAP, CONSULTS FOR PULM AND GI. GASTRIC TUBE AROUND IS SLIGHTLY RED AND TENDER TO TOUCH, CLEANED AROUND SITE. PATIENT STATES HE HAD OUTPATIENT SCHEUDLE WITH DR ESCOBAR TO HAVE THE TUBE REPLACED ON FRIDAY. STATES PAIN 05/27, HOME MEDICATIONS STARTED. ALL MEDS DOWN THE TUBE. FLUIDS INFUSING. SEPSIS ORDERS INITIATED PER DR BRITT. PATIENT EDUCATED THE HE CANNOT CONTINUE TO TAKE THE BIPAP OFF TO TALK ON THE PHONE, PATIENT GRUMPY AND SAYS HE WILL BE GOING HOME BY FRIDAY, HE HAS STUFF TO DO. PATIENT ALSO HAS $1000 [place] IN HIS BAG OF BELONGINGS WITH DEBIT CARDS, PATIENTS STATES FAMILY IS COMING AND HE WILL SEND IT HOME WITH THEM, REFUSES TO HAVE IT LOCKED IN SECURITY. REFUSES TO CHANGE INTO ICU GOWN ALSO. BED IN LWOEST POSITION, CALL LIGHT IN REACH, CARDIAC MONTIOR IN PLACE
--- NOTE | 2018-09-26 18:52 | NUR ---
DR LARSEN CALLED BACK ON ADMISSION, JUST WANTS AN ABG IN THE AM ON PATIENT. NO CAHNGES TO BIPAP.
[2018-09-27] VITALS (11 sets, daily range): BP systolic 97–128; BP diastolic 47–64
--- NOTE | 2018-09-27 00:33 | NUR ---
FSBS 367, METFORMIN TO BE HELD DAILY X48 HOURS PER POLICY FOLLOWING CTA, LOW DOSE SLIDING SCALE HUMALOG INSULIN Q6, AWAITING PHARMACY TO ENTER INTO EMAR, HUMALOG 12UNITS SQ GIVEN RIGHT UPPER ARM.
--- NOTE | 2018-09-27 01:25 | NUR ---
PIO CHAVIRA, PTS COUSIN, AND DESIGNATED EMERGENCY CALLED FOR PT UPDATE, OBTAINED CONTACT PHONE NUMBER AND ADDED IT TO ELECTRNIC RECORD .
--- NOTE | 2018-09-27 02:16 | NUR ---
PT HAS NOT VOIDED SINCE ARRIVAL TO UNIT, UP TO BSC X2 WITH ASSIST TO ATTEMPT TO URINATE WITHOUT RESULTS, REFUSING BLADDER SCAN, STATES "GOD WILL TELL ME WHEN I NEED TO URINATE AND I WILL, YOU PEOPLE WORRY TOO MUCH" EDUCATED S/S OF URINARY RETENTION INCLUDING RUPTURED BLADDER, PT CONTINUES TO DECLINE INTERVENTIONS AT THIS TIME, WILL CONTINUE TO MONITOR, PROVIDE EDUCATION, AND EMOTIONAL SUPPORT.
[2018-09-27 04:20] LABS: HEMATOCRIT 32.8 % (42.0-52.0); MCH 29.1 pg (26.0-34.0); MCV 88.4 fL (80.0-100.0); MPV 9.3 fl. (7.2-11.1); RBC 3.71 mil/uL (4.50-6.00); WBC 35.8 thou/uL (4.0-11.0)
[2018-09-27 04:38] LABS: HEMOGLOBIN 10.8 gm/dL (14.0-18.0)
[2018-09-27 05:03] LABS: ALBUMIN 2.7 g/dL (3.4-5.0); CREATININE 1.5 mg/dL (0.6-1.3); MAGNESIUM 2.1 mg/dL (1.8-2.4); POTASSIUM 3.9 mmol/L (3.5-5.1); TOTAL BILIRUBIN 0.6 mg/dL (<0.1-1.0); TOTAL PROTEIN 6.7 g/dL (6.4-8.2)
[2018-09-27 05:36] LABS: URINE BILIRUBIN NEGATIVE (Negative); URINE BLOOD NEGATIVE (Negative); URINE CLARITY CLEAR; URINE COLOR YELLOW; URINE GLUCOSE-RANDOM 3+ (Negative); URINE KETONES NEGATIVE (Negative); URINE LEUKOCYTES-REFLEX NEGATIVE (Negative); URINE NITRITE-REFLEX NEGATIVE (Negative); URINE PROTEIN NEGATIVE (Negative); URINE SPECIFIC GRAVITY <= 1.005 (1.005-1.030); URINE UROBILINOGEN 0.2 E.U./dl (0.2-1.0)
--- NOTE | 2018-09-27 12:25 | EKG ---
[place] [address] ELECTROCARDIOGRAM REPORT Name: ROGE KLEIN Room: [address] ADM IN M.R.#: [id number] Admission: 09/26/18 Attend Phys: Cristhian Hampton, Discharge: Date of : 46 Report #: [id number] THIS REPORT FOR: //name// [facility] ED Test Date: 2018-09-26 Test Time: 13:51:20 Pat Name: ROGE KLEIN Department: Room: [facility] Gender: M Employee Health Nurse: Kita SANTIAGO : 1950 Requested By: Jefferson Xiao Order Number: [id number] MD: Garth Flores Measurements Intervals [place] Rate: 128 P: 66 MS: 150 QRS: -15 QRSD: 77 T: 16 QT: 293 QTc: 428 Interpretive Statements Sinus tachycardia Borderline left axis deviation Compared to ECG 04/28/2018 10:05:54 Sinus rhythm no longer present Electronically Signed On 09-27-2018 12:25:25 IMPORT EXPORT AGENT by Garth Flores [email or web address] <ELECTRONICALLY SIGNED> By: Garth Flores MD, [facility] 09/27/18 1225 1351 1351 Garth Flores MD, [facility] /EPI
[2018-09-27 14:07] LABS: CALCIUM 8.6 mg/dL (8.5-10.1); CREATININE 1.5 mg/dL (0.6-1.3); POTASSIUM 3.7 mmol/L (3.5-5.1)
--- NOTE | 2018-09-27 19:03 | NUR ---
CLEANED G TUBE AROUND SITE WITH WOUND CLEANSER AND GAUZE, CONTINUES TO LOOK RED AND INFLAMMED. DR CH SEEN, WOULD LIKE WOUND CARE TO COME SEE TOMORROW. WOUND CARE CONSULT PLACED. DR CH TO SEE PATIENT IN THE AM TO POSSIBLY PUT IN A BUTTON G TUBE. LACTIC CONTINUES TO RISE AND FALL. BOLUS FLUIDS STARTED. PATIENT MS TELE STATUS. BED IN LOWEST POSITION, CALL LIGHT IN REACH, RN LACTATION IN PLACE.
[2018-09-28] VITALS: BP 132/52
[2018-09-28 01:10] VITALS: BP 126/43
--- NOTE | 2018-09-28 01:10 | NUR ---
PT TRANSFERRED TO FLOOR PER WHEELCHAIR PER NURSING STAFF WITH O2 AND BELONGINGS. ORIENTED TO ROOM AND CALL LITE. PT DENIES PAIN OR PROBLEMS AT THIS TIME. O2 4L NC. I AGREE WITH PREVIOUS ASSESSMENT. CALL LITE IN EASY REACH. WILL CONTINUE TO MONITOR AND PROVIDE CARES NEEDED. DRSG TO G TUBE SITE SATURATED. PT REFUSES TO REMOVE AND OR CHANGE DRESSING. "THATS WHY I HAVE THESE TOWELS HERE, THIS IS WHAT I DO." EDUCATION GIVEN ON MOISTURE CONTRIBUTING TO SKIN BREAK DOWN AROUND TUBE SITE. USING SWABS AND LIP MOISTURIZER FOR COMFORT. TELE MONITOR ON SR. R FA IVF PLACED ON PUMP FOR INFUSION.
[2018-09-28 04:35] VITALS: BP 129/53
--- NOTE | 2018-09-28 05:05 | NUR ---
PT HAS BEEN AWAKE SINCE TRANSFERRING FROM ICU WATCHING TV. PT FLUSHING TUBE WITH WATER HIMSELF-REQUESTED TUBE FEEDING BOXES SO HE COULD DO HIS FEEDING ABOUT 0800 HE SAID. ENCOURAGED TO WAIT FOR WOUND CARE NURSE AND DR TO SEE WHAT PLAN IS FOR TAKING CARE OF HIS LEAKY G TUBE. HE STATES "THEY WONT SEE ME UNTIL THE AFTERNOON AND THEY WONT DO ANYTHING UNTIL THEN BECAUSE I WONT DO IT." MEDS GIVEN PER TUBE AND PT DOES WATER FLUSH. FINALLY PERSUADED TO REMOVE DRESSING TO G TUBE SITE IT WAS SATURATED AND IRRITATING SKIN-PICTURE OBTAINED. PT REFUSED TO CLEANSE SITE STATING THAT "IT WOULD BE BETTER TO NOT WET IT DOWN." PT ENCOURAGED TO LEAVE GI AND STATES THAT HE WILL UNLESS IT LEAKS AND THEN HE WILL PUT ANOTHER GAUZE PAD ON IT. R HAND IVF AND ABX GIVEN ORDERED. USING URINAL TO VOID. ABLE TO USE CALL LITE AND MAKE NEEDS KNOWN. ORAL CARE GIVEN PER SELF. CXR OBTAINED THIS MORNING.
[2018-09-28 08:10] VITALS: BP 122/50
--- NOTE | 2018-09-28 08:48 | CON ---
[address] [address] CONSULTATION Name: ROGE KLEIN Room: [address] IN M.R.#: [id number] Admission: 09/26/18 Attend Phys: Cristhian Hampton, Discharge: Date of : 46 Report #: [id number] THIS REPORT FOR: //name// CC: Dr. Berta Dickson DATE OF SERVICE: 09/27/2018 LOCATION: He is in the ICU bed 5. ATTENDING PHYSICIANS: Dr. Hampton and Dr. Willoughby. INDICATION FOR CONSULTATION: COPD, pneumonia, hypoxemia. CLINICAL SUMMARY: The patient is a 68-year-old male, prior smoker with moderately severe to severe COPD. He has been oxygen dependent. He has been steroid dependent at times. The patient had a 12- to 24-hour history of increasing cough, shortness of breath and wheezing. When EMS came to see him, it was about 5:00 a.m. on Friday morning of the 09/26. Normally, he is on 3-4 liters at home. His O2 sat was 77% on 4 liters. Ambulance placed him on 15-liter high flow cannula, O2 sats were 88%. His pO2 was 55. CT angio of the chest was negative for pulmonary emboli. He has intermittent and chronic right lower lobe infiltrates from intermittent aspiration. He has a history of squamous cell carcinoma of the tongue, stage 3. He has had chemo and radiation therapy. He finished that in 06/2017. He does have a PEG tube in place. He has had some irritation around the PEG tube and some bleeding. He has chronic aspiration and cough. He is supposed to be on breathing treatments at home, he takes some p.r.n. He has been in the hospital multiple times for various reasons. He is alert and awake. He was on BiPAP. He kept that on for about 4-6 hours. He then ripped it off and states he was not going to wear it anymore and he is now on 4 liters with saturations of 98% and talking nonstop. PAST MEDICAL HISTORY: He has a history of COPD, mostly upper lobe emphysema, oxygen dependent, intermittently steroid dependent, not on chronic steroids at this time. He has bleeding and troubles from his PEG tube and he has a squamous cell carcinoma of the tongue at the base of tongue, stage 3, status post chemoradiation therapy with Dr. Jenn akhtar at the cancer center and there has been no evidence of recurrence. He has been seen by ENT also and had a laryngoscopy, I believe. ALLERGIES: He [place] [address] CONSULTATION Name: ROGE KLEIN Room: [address] IN M.R.#: [id number] Admission: 09/26/18 Attend Phys: Cristhian Hampton, Discharge: Date of : 46 Report #: [id number] OUTPATIENT MEDICATIONS: He has had a previous prednisone taper that was back in 02/2018. He has an albuterol inhaler at home, also has albuterol nebulizer at home, supposed to be on montelukast 10 mg daily per tube and then furosemide, Lasix 20 mg daily p.r.n. swelling, atorvastatin 20 mg daily, loratadine, Claritin 10 mg daily and alprazolam 1 mg t.i.d., also supposed to be on hydrocodone 7.5 mg daily 4 times a day because of his chronic back pain. OTHER PRIOR SURGICAL HISTORY: Includes tongue surgery and also has had chronic back pain with back surgery several years ago. G-tube was placed in 2017 because of dysphagia. FAMILY HISTORY: Negative for premature cardiopulmonary disease. SOCIAL HISTORY: He lives at home by himself in [place], [place]. He has a son and a daughter who do help out; one lives in [place] and the other one lives, I believe, in [place] also. Again, he is a prior smoker of about a 40-50 pack years by his history, quit in 2017. REVIEW OF SYSTEMS: A 14-point review of systems reviewed and negative except for pertinent positives noted in HPI. PHYSICAL EXAMINATION: GENERAL: Alert, talkative, almost 68-year-old male in the ICU. VITAL SIGNS: Blood pressure is 130/70, his pulse rate is 84, respirations were 16, and saturation was 96% on 4 liters at this time, temperature is 36.4 degrees. He is 6 feet tall, weight 77 kilograms or 168 pounds, BMI is 23. HEENT: Unremarkable. Tongue, he does not give me a good exam, but he has some dried mucous membranes noted and some old crusting. Can open his mouth fairly well. NECK: Supple without nodes, no cervical or supraclavicular adenopathy. CHEST: Shows markedly diminished breath sounds with a few crackles in the right lung base. Prolonged expiratory phase. No definite wheezes noted. CARDIOVASCULAR: Regular rate and rhythm without murmur, gallop or rub. Heart rate is 84. ABDOMEN: Soft with a PEG tube in place, mild to moderate erythema around the PEG tube, question whether it is leaking or whether there is some early inflammation of the stoma site. No hepatosplenomegaly is noted. EXTREMITIES: No calf tenderness. No cyanosis, clubbing or edema. NEUROLOGIC: Nonfocal, moves all fours to commands and is intact. LABORATORY DATA: Labs from 09/27/2018 this morning show hemoglobin 11, white count was 35,000 on steroid taper. Normal differential except for increased segmented neutrophils noted. Platelets were 131,000. Sodium is 141, potassium is 3.9, bicarbonate is 30, BUN is 38, creatinine is 1.5, glucose is 316. AST and ALT are within normal limits. Albumin is down slightly at 2.7. Chest x-ray and CT of the chest show upper lobe emphysema, [place] [address] CONSULTATION Name: DARRIUSRADHAROGE SORIN Room: [address] ADM IN [facility].#: [id number] Admission: 09/26/18 Attend Phys: Cristhian Hampton, Discharge: Date of : 46 Report #: [id number] worsened was a couple of years ago and then some lower lobe patchy right basilar infiltrate, could be either old scarring or new infiltrate related to infection, intermittent aspiration. I do not have any PFTs on the patient. The last set of ABGs since the patient refused the repeat ABGs when he was admitted in the Emergency Room on 100% nonrebreather, pO2 was 55, pH 7.49, pCO2 was 37, bicarbonate was 28 with a sat of 89%. Carboxyhemoglobin was only 0.4 and methemoglobin was 0.2. IMPRESSION: 1. Moderately severe to severe chronic obstructive pulmonary disease, oxygen dependent, last couple of years, may becoming steroid dependent. 2. Prior history of stage 3 tongue carcinoma at the base of the tongue status post chemoradiation therapy, all therapy appeared to be finished in 06/2017 with no evidence of recurrent disease. 3. Chronic aspiration. I am not sure whether the patient is following strict percutaneous endoscopic gastrostomy tube feedings. PLAN: Continue with montelukast. Make sure he is taking his albuterol breathing treatments at home 2-4 times a day routinely to help clear secretions. Add albuterol syrup per the PEG tube to help in clear secretions. He is on a quick burst of steroids. He is also on IV azithromycin and IV Zosyn at this time. Should be adequate coverage. We will get a chest x-ray in the morning and make sure that is stable. The patient wants to go home relatively quickly, but he has done this multiple times this year. We will see if we can keep him in the hospital for a couple of days to get him cleared up, clear up his secretions and go from there. If he would cooperate, then full PFTs in the future would be helpful and see if we cannot keep him from having chronic aspiration. May need a repeat swallow study at some point in time just to document or maybe . Thanks again for allowing us to participate in this man's care. We will follow up along with you while he is in the hospital. <ELECTRONICALLY SIGNED> By: Rufus Powell MD 09/28/18 0848 0907 [id number] Powell MD /nixon
[2018-09-28 11:53] VITALS: BP 136/62
[2018-09-28 13:02] LABS: CALCIUM 8.7 mg/dL (8.5-10.1); CREATININE 1.3 mg/dL (0.6-1.3); POTASSIUM 4.2 mmol/L (3.5-5.1)
--- NOTE | 2018-09-28 13:42 | NUR ---
RECEIVED REPORT FROM ELDON PRADHAN. ASSUMED CARE OF PT AROUND 0730. PT A&OX4, BUT FORGETFUL. PT STATES "MY SHORT TERM MEMORY IS BAD". VSS. WIRE TECHNICIAN IN PLACE TRACING SR TO ST. AM ASSESSMENT AND VITALS COMPLETED CHARTED. IV INTACT AND INFUSING IVF. PT REPORTS GENERALIZED PAIN; RECEIVED PAIN MEDICATION VIA G-TUBE WITH LITTLE RELIEF. PT STATES "I HURT EVERYWHERE ALL THE TIME". PT DOZING FREQUENTLY BUT IS EASILY AROUSABLE WITH VERBAL STIMULATION. PT SEEN BY ANALYST MICROBIOLOGY LAB; THIS RN ASSISTED ANALYST MICROBIOLOGY LAB TO PERFORM CARE TO EXCORIATED SKIN SURROUNDING G-TUBE. PT PERFORMING OWN ORAL CARE WITH SWABS. PT FLUSHING G-TUBE HIMSELF. MEDS ADMINISTERED THROUGH TUBE WITHOUT DIFFICULTY. PT HAS NOT ADMINISTERED TUBE FEEDING YET THIS SHIFT; WAITING UNTIL SEEN BY GI. PT WATCHING TV IN BED. CALL LIGHT IS WITHIN REACH. FALL PRECAUTIONS IN PLACE. HOURLY ROUNDING PERFORMED. WILL CONTINUE TO MONITOR.
--- NOTE | 2018-09-28 13:47 | NUR ---
WOUND CARE NOTE: CONSULT RECEIVED FOR INFLAMMED G TUBE SITE. PATIENT PRESENTS WITH PARTIAL THICKNESS BREAKDOWN/DERMATITIS SURROUNDING THE G-TUBE SIDE. DISTAL ASPECT BEING WORSE THAN PROXIMAL. GASTRIC CONTENTS LEAKING AROUND TUBE CAUSING IRRITATION TO SKIN. AREA WAS CLEANSED. APPLIED MARATHON TO ALLOW SKIN TO HAVE A CHANCE TO HEAL. EDUCATED PATIENT ON DRESSING SELECTION, COMMUNICATED UNDERSTANDING. PATIENT PLANS TO DISCHARGE TOMORROW. GAVE PATIENT WOUND CENTER INFORMATION IF HE NEEDS MORE WOUND CARE WHEN HE GOES HOME. RECOMMEND LEAVE MARATHON IN PLACE UNTIL COMES OFF ON OWN.
--- NOTE | 2018-09-28 13:55 | NUR ---
CM attempted to assess Ptx2, sound asleep both times, will attempt later
[2018-09-28 17:00] VITALS: BP 130/68
--- NOTE | 2018-09-28 19:43 | NUR ---
VSS. FIELD SALES REPRESENTATIVE REMAINS IN PLACE WITH NO CHANGES. WOUND CARE RECOMMENDING THAT G-TUBE BE MOVED TO NEW SITE OR TUBE INCREASED IN SIZE TO FACILITATE SKIN HEALING AND STOP LEAKING. PT FED SELF 2 BOXES OF JEVITY 1.5 THIS EVENING WITHOUT DIFFICULTY. MEDS PER EMAR. PT TRANSFERED TO ROOM 317. REPORT CALLED TO LORNE SAGASTUME.
[2018-09-29] VITALS: BP 145/67
[2018-09-29 04:00] VITALS: BP 161/80
[2018-09-29 05:28] LABS: HEMATOCRIT 32.6 % (42.0-52.0); HEMOGLOBIN 10.7 gm/dL (14.0-18.0); MCH 29.1 pg (26.0-34.0); MCHC 32.8 g/dL (28.0-37.0); MCV 88.9 fL (80.0-100.0); MPV 9.7 fl. (7.2-11.1); RBC 3.67 mil/uL (4.50-6.00); RDW-CV 15.8 % (10.5-14.5)
[2018-09-29 05:34] LABS: WBC 18.9 thou/uL (4.0-11.0)
[2018-09-29 05:39] LABS: CREATININE 1.3 mg/dL (0.6-1.3); MAGNESIUM 1.8 mg/dL (1.8-2.4)
[2018-09-29 05:40] LABS: POTASSIUM 3.2 mmol/L (3.5-5.1)
[2018-09-29 07:45] VITALS: BP 146/71
--- NOTE | 2018-09-29 08:07 | NUR ---
PATIENT SLEPT PART OF THE NIGHT. PATIENT IS ADMIMANT THAT HE IS GOING HOME TODAY REGARDLESS OF WHAT THE DOCTORS SAY. PATIENT WAS GIVEN PAIN MEDICINE EVERY FOUR HOURS. G-TUBE CONTINUES TO LEAK OFF AND ON PATIENT STATES HE KNOWS HOW TO FIX IT. WILL CONTINUE TO MONITOR.
[2018-09-29 10:03] VITALS: BP 161/80
[2018-09-29] MEDS ORDERED: AZITHROMYCIN 2250 MG PO (10:18)
[2018-09-29] MEDS ORDERED: CEFDINIR300 MG PO (10:19)
[2018-09-29] MEDS ORDERED: PREDNISONE 10 M10 MG PO (10:21)
--- NOTE | 2018-09-29 10:27 | NUR ---
SPOKE TO THE PATIENT TO DISCUSS HIS HOME SITUATION, DISCHARGE PLANNING, AND TO INFORM OF THE ROLE OF CM. PATIENT ALERT, ORIENTED, AND INDEPENDENT WITH ADL'S. PATIENT INFORMS THAT HE IS ABLE TO AMBULATE INDEPENDENTLY, AND NO LONGER USES A WALKER. PATIENT USES HOME O2 PROVIDED BY [facility]. PATIENT HAS A HX OF HH WITH [facility]. PATIENT INFORMS THAT HE DOES NOT DRIVE, BUT HIS COUSIN PIO ASSIST WITH TRANSPORTATION, [employer], AND APPOINTMENTS. PATIENT INFORMS THAT HE AND HIS SPOUSE ARE 'GETTING '. PATIENT INFORMS THAT HE PLANS TO RETURN HOME TODAY DESPITE THE PHYSICIANS RECOMMENDATIONS, AND THAT HIS COUSIN WILL BE HERE TO PICK HIM UP AT 1330. PATIENT INFORMS THAT HE WAS TOLD THAT HE WAS GETTING HIS PEG TUBE REPLACED YESTERDAY AND SINCE THAT DIDN'T HAPPEN HE IS GOING HOME. D/C HYDROGRAPHY TEACHER DISCUSSED ALL OF THE ABOVE INFO WITH THE RN IN-CHARGE OF THE PATIENT INCLUDING HIS PLANS TO RETURN HOME TODAY AND SHE IS AWARE, WELL THE PATIENT HAD BEEN INFORMED THAT HE WOULD BE LEAVING AMA. CM WILL REMAIN AVAILABLE TO ASSIST AND FOLLOW NEEDED
[2018-09-29 16:29] VITALS: BP 133/56
--- NOTE | 2018-09-29 16:49 | NUR ---
PATIENT REFUSING TO HAVE LACTIC ACID DRAWN THIS AM. DISCUSSED WITH PATIENT THE IMPORTANCE OF LAB BEING REDRAWN AFTER COMING BACK CRITICAL. PATIENT REFUSED STATING HE WAS GOING HOME. PIO, PATIENTS FAMILY MEMBER CALLING FOR UPDATE, STATED SHE WOULD TALK TO PATIENT ABOUT HAVING LAB DRAWN. PATIENT FINALLY AGREEABLE. DR. MARTINEZ NOTIFIED THAT REDRAW WAS 3.6. ONC CONS PLACED THIS AM, NO NEW ORDERS RECEIVED AND PATIENT TO FOLLOW UP WITH GROUP OUTPATIENT. PATIENT MADE NPO THIS AM FOR PEG TUBE REPLACEMENT. PATIENT NOTIFIED THAT DR. CH WOULD ARRANGE BY 1300 FOR PEG TUBE AND IF REPLACMENT PIECE NOT HERE THEN PATIENT COULD EAT. PATIENT RELUCTANT BUT STATED HE WANTED THE PEG TUBE CHANGED. DR. BURTON HERE AROUND 1030 AND TUBE REPLACED WITH CAROLINE BUTTON. OK TO USE PER DR. BURTON. BOLUS FEED AND PILLS GIVEN THROUGH TUBE, NO DIFFICULTY NOTED. PATIENT DID COMPLAIN THIS TUBE DIDNT GO " FAST" HIS OTHER TUBE. PATIENT REFUSING TO HAVE PEG TUBE SITE CLEANED, THIS NURSE ATTEMPTED MULTIPLE TIMES. PHOTO TAKEN OF SITE. PATIENT ON CONTINUOUS WASHER OPERATOR AND PREVIOUSLY TRACING SR, PATIENT HAD AN EPISODE OF AFIBB WITH HR OF 122 THEN RIGHT BACK TO SR. DR. MARTINEZ NOTIFIED AND ORDERS FOR OUTPATIENT HOLSTER, DISCUSSED WITH PATIENT AND PATIENT REFUSED STATING HES NEVER HAD HEART PROBLEMS AND HE DOESNT HAVE ANY NOW. PATIENT GIVEN AFTERNOON MEDS THROUGH PEG TUBE AND TUBE BEGAN LEAKING. PATIENT REFUSED TO HAVE LIQUID POTASSIUM REPLACMENT THROUGH TUBE, POTASSIUM DISSOLVED BUT SOME OF MEDICATION BECAME STUCK IN TUBE. PATIENT GOT ANGRY AND STATED HE WANTED THE DOCTOR BACK HERE NOW AND WANTED A NEW TUBE. DR. BURTON NOTIFIED AND WOULD REPLACE TUBE. DOCTOR CAME BACK THIS EVENING AND REPLACED TUBE BUT TUBE CONTINUES TO LEAK, PATIENT STATED IT WAS LEAKING WHEN THE DOCTOR WAS HERE AFTER REPLACEMENT AND DOCTOR AWARE. PATIENT STATING HE IS STILL GOING TO GO HOME AND WILL FOLLOW UP OUTPATIENT WITH DR. ESCOBAR. DR. MARTINEZ NOTIFIED OF PATIENT POTASSIUM, HOLSTER VEST AND TUBE REPLACMENT. OK FOR PATIENT TO STILL DISCHARGE HOME, PATIENT ADAMENT THAT HE WAS LEAVING REGARDLESS. SCRIPTS CALLED INTO [facility] PER PATIENT REQUEST AND VERBALIZES UNDERSTANDING OF PAPERWORK. INSTRUCTED PATIENT TO H0LD METFORMIN DUE TO HIGH LACTIC ACID DR. MARTINEZ HAD EXPLAINED AND WATCH CARBS WITH DIET. PATIENT INSTRUCTED TO MAKE APPT WITH PCP IN THE NEW FEW DAYS REGARDING HIGH LACTIC LEVEL. PATIENT STATED "HE WOULD NEVER GET IN TO SEE HIM AND HE HAS AN APPT SOON." PATIENT REFUSING TO STOP TAKING METFORMIN. PATIENTS FAMILY MEMBER PIO HERE TO GET PATIENT. PATIENT TAKEN OUT VIA WHEELCHAIR WITH ALL BELONGINGS.
--- NOTE | 2018-10-01 12:07 | CON ---
[address] [address] CONSULTATION Name: ROGE KLEIN Room: [address] IN M.R.#: [id number] Admission: 09/26/18 Attend Phys: Cristhian Hampton, Discharge: 09/29/18 Date of : 46 Report #: [id number] THIS REPORT FOR: //name// CC: Randolph Hampton DATE OF SERVICE: 09/27/2018 REASON FOR CONSULT: Irritation and erythema around the PEG tube. HISTORY OF PRESENT ILLNESS: This is a 68-year-old male who was admitted to hospital with shortness of air and O2 sat of 77% on 4 liters of nasal cannula. The patient was brought to hospital and found to have pneumonia. He also has history of dysphagia for which he has had a PEG tube in place. The PEG tube was last changed in 04/2018. The patient has a lot of pain and discomfort at the PEG tube site. He also reports that there is leakage from the site. The patient denies any change in bowel habits, hematochezia, or melena. He claims that he started eating a bit and he uses his PEG tube occasionally. He denies any fever or chills. Since he has been admitted to hospital, he was placed on antibiotics and initially on a BiPAP. PAST MEDICAL HISTORY: Significant for history of emphysema, diabetes, back surgery, cancer of the tongue, status post PEG tube placement back in 2016, but requiring changes with last change of PEG tube in 04/2018. ALLERGIES: No known drug allergy. MEDICATIONS: Please refer to MAR. SOCIAL HISTORY: The patient lives at home, has a PEG tube, which he gets some of his nutrition through that. He has been diagnosed with tongue cancer a couple of years ago. FAMILY HISTORY: Noncontributory. PHYSICAL EXAMINATION: VITAL SIGNS: Reveals normal vitals. LUNGS: Decreased breath sounds at the bases. CARDIOVASCULAR: Regular rate. ABDOMEN: Soft, tender to palpation around the PEG tube site. There is significant irritation and indentation of skin at the site where the PEG tube bumper is against the skin. NEUROLOGIC: The patient is alert, oriented x 3. [place] [address] CONSULTATION Name: ROGE KLEIN Room: [address]#: [id number] Admission: 09/26/18 Attend Phys: Cristhian Hampton, Discharge: 09/29/18 Date of : 46 Report #: [id number] LABORATORY DATA: Reveal sodium of 141, potassium 3.9, BUN is 38, creatinine 1.5, glucose 316, AST 17, ALT 19, alkaline phosphatase 59, total bilirubin is 0.6. WBC is 35.8 with hemoglobin of 10.8 and platelets of 131. IMAGING: CT of the chest reveals bibasilar consolidation, more prominent on the right, likely pneumonia. There is evidence of centrilobular emphysema. There is also borderline enlarged mediastinal, left paraesophageal and subcranial lymph nodes noted. ASSESSMENT AND PLAN: The patient with history of tongue cancer and PEG tube placement back in 2017, which has been changed last in 04/2018. There is significant excoriation in the site of the PEG tube bumper. We will ask the Wound Care to come and evaluate this and make recommendation about the wound. I will switch the PEG tube to a PEG button or consider changing the PEG site based on Wound Care recommendation. <ELECTRONICALLY SIGNED> By: Ruben Srivastava MD 10/01/18 1207 [id number] Srivastava MD /nt
== END 2018-09-29 16:45 | disposition home or self-care (01) | DRG 871 ==
LOC: M.ERS 13:47 → M.3W 14:50 → M.TBA-ER 14:50 → M.2W 14:50 → M.ICU 15:45 → M.2W 09-28 01:34 → M.3W 09-28 19:49
PROVIDERS: Emergency Medicine; Internal Medicine; ADMIT Family Medicine
PROC: 5A09357 Assistance with Respiratory Ventilation, Less than 24 Consecutive Hours, Continuous Positive Airway Pressure (ICD-10-PCS; principal; 2018-09-26)
PROC: 0D20XUZ Change Feeding Device in Upper Intestinal Tract, External Approach (ICD-10-PCS; 2018-09-29)
PROC: 0D20XUZ Change Feeding Device in Upper Intestinal Tract, External Approach (ICD-10-PCS; 2018-09-29)
PROC: 0DP6XUZ Removal of Feeding Device from Stomach, External Approach (ICD-10-PCS; 2018-09-29)
PROC: 0DP6XUZ Removal of Feeding Device from Stomach, External Approach (ICD-10-PCS; 2018-09-29)
DX: A41.9 Sepsis, unspecified organism (principal); J96.01 Acute respiratory failure with hypoxia; J18.9 Pneumonia, unspecified organism; T85.598A Other mechanical complication of other gastrointestinal prosthetic devices, implants and grafts, initial encounter; J44.1 Chronic obstructive pulmonary disease with (acute) exacerbation; J44.0 Chronic obstructive pulmonary disease with (acute) lower respiratory infection; J98.11 Atelectasis; E87.2 Acidosis; S30.811A Abrasion of abdominal wall, initial encounter; I10 Essential (primary) hypertension; E11.9 Type 2 diabetes mellitus without complications; G89.4 Chronic pain syndrome; X58.XXXA Exposure to other specified factors, initial encounter; J98.01 Acute bronchospasm; Y83.3 Surgical operation with formation of external stoma as the cause of abnormal reaction of the patient, or of later complication, without mention of misadventure at the time of the procedure; Z79.899 Other long term (current) drug therapy; Z85.810 Personal history of malignant neoplasm of tongue; Z92.3 Personal history of irradiation; Z92.21 Personal history of antineoplastic chemotherapy; Z93.1 Gastrostomy status; Z87.891 Personal history of nicotine dependence; Y93.89 Activity, other specified; Y92.89 Other specified places as the place of occurrence of the external cause; Y99.8 Other external cause status; Z99.81 Dependence on supplemental oxygen; Z79.82 Long term (current) use of aspirin

== ENCOUNTER 2018-12-05 13:05 | Emergency (ER) | payer OTHER ==
[~2018-12-05] VITALS: Ht 180.3 cm; Wt 79.4 kg
[~2018-12-05 13:05] MED LIST changes: +AZITHROMYCIN 2250 MG PO; +CEFDINIR300 MG PO; +PREDNISONE 10 M10 MG PO
[2018-12-05 13:49] LABS: HEMATOCRIT 30.1 % (42.0-52.0); HEMOGLOBIN 10.1 gm/dL (14.0-18.0); MCH 28.5 pg (26.0-34.0); MCHC 33.3 g/dL (28.0-37.0); MCV 85.4 fL (80.0-100.0); MPV 9.2 fl. (7.2-11.1); NUCLEATED RBCS 0 /100WBC; PLATELET COUNT* 163 thou/uL (150-400); RBC 3.53 mil/uL (4.50-6.00); RDW-CV 15.7 % (10.5-14.5); WBC 14.7 thou/uL (4.0-11.0)
[2018-12-05 14:01] LABS: APTT 34.6 Seconds (25.0-31.3); INR 1.2; PROTIME 12.2 Seconds (9.20-11.50)
[2018-12-05] MEDS ORDERED: LEVAQUIN 500 M500 MG PO (14:07)
[2018-12-05] MEDS ORDERED: PREDNISONE 20 M20 M1 PO (14:07)
[2018-12-05 14:15] LABS: ANION GAP 7 mmol/L (7-16); BUN 30 mg/dL (7-18); CALCIUM 9.2 mg/dL (8.5-10.1); CHLORIDE 98 mmol/L (98-107); CO2 31 mmol/L (21-32); CREATININE 1.1 mg/dL (0.6-1.3); GLUCOSE 146 mg/dL (70-99); POTASSIUM 4.2 mmol/L (3.5-5.1); SODIUM 136 mmol/L (136-145); TROPONIN-I LEVEL <0.06 ng/mL (<0.06)
[2018-12-05 14:21] VITALS: BP 116/43
[2018-12-05 14:21] LABS: ABSOLUTE BASOPHILS 0.1 thou/uL (0.0-0.2); ABSOLUTE EOSINOPHILS 0.1 thou/uL (0.0-0.7); ABSOLUTE MONOCYTES 0.9 thou/uL (0.0-1.2); ABSOLUTE NEUTROPHILS 12.5 thou/uL (1.6-8.1); ATYPICAL LYMPHS 2 %; PLATELET ESTIMATE ADEQUATE
[2018-12-05 14:24] LABS: ALBUMIN 3.1 g/dL (3.4-5.0); ALKALINE PHOSPHATASE 82 U/L (46-116); LIPASE 39 U/L (73-393); MAGNESIUM 1.7 mg/dL (1.8-2.4); NT-PRO BRAIN NAT PEPTIDE 241 pg/mL (<300); SGOT 24 U/L (15-37); SGPT 32 U/L (30-65); TOTAL BILIRUBIN 0.5 mg/dL (<0.1-1.0); TOTAL PROTEIN 7.2 g/dL (6.4-8.2)
--- NOTE | 2018-12-06 12:07 | EKG ---
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 12/06/18 1207 1355 [id number] Reggie Grace MD, FACC /EPI
== END 2018-12-05 14:22 | disposition home or self-care (01) ==
LOC: M.ERS 13:05
PROVIDERS: Family Medicine
DX: J44.1 Chronic obstructive pulmonary disease with (acute) exacerbation (principal); I10 Essential (primary) hypertension; M54.9 Dorsalgia, unspecified; G89.29 Other chronic pain; E11.9 Type 2 diabetes mellitus without complications

== ENCOUNTER 2019-01-11 18:17 | Inpatient (IN) | payer OTHER ==
[~2019-01-11] VITALS: Ht 180.3 cm; Wt 86.2 kg
[~2019-01-11 18:17] MED LIST changes: +LEVAQUIN 500 M500 MG PO; +PREDNISONE 20 M20 M1 PO
[2019-01-11 18:22] VITALS: BP 122/53
[2019-01-11 20:00] VITALS: BP 156/66
[2019-01-11 20:20] VITALS: BP 177/74
[2019-01-11 22:24] LABS: HEMATOCRIT 28.2 % (42.0-52.0); HEMOGLOBIN 9.3 gm/dL (14.0-18.0); MCH 28.2 pg (26.0-34.0); MCHC 32.9 g/dL (28.0-37.0); MCV 85.5 fL (80.0-100.0); MPV 8.4 fl. (7.2-11.1); RBC 3.3 mil/uL (4.50-6.00); RDW-CV 15.7 % (10.5-14.5); WBC 16.2 thou/uL (4.0-11.0)
[2019-01-11 22:29] LABS: CALCIUM 9.2 mg/dL (8.5-10.1); POTASSIUM 4.9 mmol/L (3.5-5.1)
[2019-01-11 22:30] LABS: INR 1.1; PROTIME 11.2 Seconds (9.20-11.50)
[2019-01-12 01:00] VITALS: BP 127/60
[2019-01-12 04:30] LABS: HEMATOCRIT 26.6 % (42.0-52.0); MCH 29.1 pg (26.0-34.0); MCV 85.7 fL (80.0-100.0); MPV 8.5 fl. (7.2-11.1); RBC 3.1 mil/uL (4.50-6.00); RDW-CV 15.7 % (10.5-14.5)
[2019-01-12] MEDS ORDERED: BREO ELLIPTA 11 EACH INH (05:11)
--- NOTE | 2019-01-12 06:36 | NUR ---
REPORT RECIEVED FROM ER. PT ADMITTED TO ROOM 105. PT ORIENTED TO ROOM, CALL LIGHT SHOWN, FALL AGREEMENT GONE OVER, PT STATED UNDERSTANDING. ASSESSMENT DOCUMENTED. MEDS GIVEN PER E-MAR. PT REPORTED UNCONTROLLED PAIN, NOTIFIED, ORDERS RECIEVED, CONSULT CALLED. PT PLACED IN BUCKS TRACTION PER ORDERS. EKG COMPLETED. PICTURES OF WOUNDS TAKEN. PT STATES HE HAS BEEN FALLING A LOT DUE TO HIS GETTING BEING "NUMB", PT STATES THAT HE FELL AND HIT HIS HEAD LAST WEEK AND ALMOST LOST CONCIOUSNESS. PT REMAINED NPO, NOTHING GIVEN PER PEG TUBE AFTER MIDNIGHT. PT VOIDED PER URINAL. WILL CONTINUE WITH PLAN OF CARE.
[2019-01-12 08:00] VITALS: BP 138/64
--- NOTE | 2019-01-12 10:33 | EKG ---
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: SARAHI : 1950 Requested By: Bakari Zavala Order Number: [id number] Mansi MD: Garth Flores Measurements Intervals [place] Rate: 83 P: 26 VA: 168 QRS: 23 QRSD: 86 T: 25 QT: 366 QTc: 430 Interpretive Statements Sinus rhythm Low voltage, precordial leads Compared to ECG 12/05/2018 13:55:36 No significant changes Electronically Signed On 01-12-2019 10:32:56 CDT by Garth Flores [email or web address] <ELECTRONICALLY SIGNED> By: Garth Flores MD, [facility] 01/12/19 1032 32 32 Garth Flores MD, [facility] /EPI
[2019-01-12 10:36] VITALS: BP 127/60
--- NOTE | 2019-01-12 10:53 | NUR ---
PATIENT CALLED OUT TO USE THE URINAL. I CAME TO THE BEDSIDE TO ASSIST THE PATIENT WITH THE URINAL AND HE SAID HE COULD NOT PEE WITH THE TRACTION AND BOOT IN PLACE. I INFORMED THE PATIENT THAT WE ARE NOT TO REMOVE THE TRACTION AND BOOT IT IS ORDERED BUY ORTHOPEDICS FOR STABALIZATION. PATIENT DEMANDED THAT BOTH BOOT AND TRACTION BE REMOVED TO THAT HE COULD PEE AND THAT "IM NOT GOING TO PEE ALL OVER MYSELF BECAUSE YOU WONT TAKE IT OFF SO I CAN GET OVER TO PEE." I STATED THAT WE COULD ARRANGE HIM IN POSITION TO URINATE WITHOUT REMOVING THE WEIGHT AND BOOT. HE CONTINUED TO ARGUE WITH ME ABOUT REMOVING IT AND DEMANDED IT BE REMOVED.
--- NOTE | 2019-01-12 11:08 | NUR ---
SURGERY STAFF IN TO RECEIVE PATIENT FOR TRANSFER PER BED TO SURGICAL DEPARTMENT. IV FLUIDS INFUSING W/O DIFF. MENDOSA'S TRACTION IN PLACE. ALERT AND ORIENTED AT THIS TIME. ~DIRKRLiliya
[2019-01-12 16:22] VITALS: BP 121/56
--- NOTE | 2019-01-12 17:17 | NUR ---
PT TRANSFERRED TO ROOM 223 AROUND 1550. REPORT GIVEN FROM PREVIOUS RN AND RADIOLOGY TECH. VSS. PRN PAIN MEDICATION GIVEN PER PEG TUBE. DISCUSSED PT'S HOME TUBE FEEDING AND ADVANCED DIET. HIP PRECAUTIONS IN PLACE. ABDUCTOR WEDGE IN PLACE. DRESSING TO RT HIP C/D/I. NO OTHER CONCERNS AT THIS TIME. CLWR. WCTM.
[2019-01-12 20:00] VITALS: BP 107/53
[2019-01-13] VITALS: BP 113/59
[2019-01-13 04:00] VITALS: BP 142/66
[2019-01-13 05:08] LABS: HEMATOCRIT 23.6 % (42.0-52.0); HEMOGLOBIN 7.8 gm/dL (14.0-18.0); MCH 28.7 pg (26.0-34.0); MCHC 33.2 g/dL (28.0-37.0); MCV 86.4 fL (80.0-100.0); MPV 8.7 fl. (7.2-11.1); NUCLEATED RBCS 0 /100WBC; PLATELET COUNT* 164 thou/uL (150-400); RBC 2.74 mil/uL (4.50-6.00); RDW-CV 15.7 % (10.5-14.5); WBC 19.2 thou/uL (4.0-11.0)
[2019-01-13 05:14] LABS: CALCIUM 8.5 mg/dL (8.5-10.1); CREATININE 1.1 mg/dL (0.6-1.3); MAGNESIUM 1.6 mg/dL (1.8-2.4); POTASSIUM 4.4 mmol/L (3.5-5.1)
--- NOTE | 2019-01-13 05:45 | NUR ---
ASSUMED PT CARE AT 1930. ASSESSMENT COMPLETED CHARTED. ABLE TO MAKE NEEDS KNOWN. PT NOT WANTING TO GET UP AT THIS TIME R/T PAIN. GAVE PRN PAIN MEDICATIONS NEEDED. [id number] COMPLETED CHARTED BUT REFUSED SEVERAL TURNS. PT RESTING IN BED AT THIS TIME. WILL CONTINUE TO MONITOR.
[2019-01-13 06:24] LABS: ABSOLUTE LYMPHOCYTES 1.9 thou/uL (0.8-5.3); ABSOLUTE NEUTROPHILS 17.3 thou/uL (1.6-8.1); ATYPICAL LYMPHS 4 %; PLATELET ESTIMATE ADEQUATE
[2019-01-13 07:20] VITALS: BP 107/41
[2019-01-13 11:30] VITALS: BP 123/48
--- NOTE | 2019-01-13 14:14 | NUR ---
Pt is A&O. Resides at home alone. Normally independent, Pt states that his cousin drives him around. Pt has a walker, cane and wc, but stated that he had not been using any of it. Pt manages his own peg tube. Pt wears home o2 through [employer]. Hx of [facility] HH. Discussed dispostion, Pt open to skilled at dc. Pt stated that he wants to stay close to home, CM faxed initial referral to [facility]), waiting on therapy evals, then will fax those. Pt will need insurance auth for skilled prior to dc. Following.
[2019-01-13 15:59] VITALS: BP 99/45
[2019-01-13 20:00] VITALS: BP 103/40
[2019-01-14] VITALS: BP 104/46
[2019-01-14 04:00] VITALS: BP 100/41
[2019-01-14 04:52] LABS: ABSOLUTE BASOPHILS 0.1 thou/uL (0.0-0.2); ABSOLUTE EOSINOPHILS 0.1 thou/uL (0.0-0.7); ABSOLUTE LYMPHOCYTES 0.8 thou/uL (0.8-5.3); ABSOLUTE MONOCYTES 2.2 thou/uL (0.0-1.2); ABSOLUTE NEUTROPHILS 12.3 thou/uL (1.6-8.1); BASOPHILS 0.6 %; EOSINOPHILS 0.7 %; MCH 27.8 pg (26.0-34.0); MCV 86.9 fL (80.0-100.0); MONOCYTES 14.4 %; MPV 8.3 fl. (7.2-11.1); NUCLEATED RBCS 0 /100WBC; PLATELET COUNT* 121 thou/uL (150-400); POLYS 79.3 %; RBC 2.22 mil/uL (4.50-6.00); RDW-CV 16.1 % (10.5-14.5); WBC 15.5 thou/uL (4.0-11.0)
[2019-01-14 05:16] LABS: CALCIUM 8.5 mg/dL (8.5-10.1); MAGNESIUM 1.9 mg/dL (1.8-2.4)
[2019-01-14 05:21] LABS: HEMATOCRIT 19.3 % (42.0-52.0); HEMOGLOBIN 6.2 gm/dL (14.0-18.0)
--- NOTE | 2019-01-14 06:30 | NUR ---
ASSUMED PT CARE AT 1930. ASSESSMENT COMPLETED CHARTED. ABLE TO MAKE NEEDS KNOWN. [id number] COMPLETED CHARTED. C/O CHRONIC AND ACUTE PAIN IN HIPS AND BACK. GAVE PRN PAIN MEDICATION NEEDED. NO ISSUES WITH PEG TUBE, NPO. PT RESTING IN BED AT THIS TIME. LR RUNNING PER P.O. WILL CONTINUE TO MONITOR.
--- NOTE | 2019-01-14 10:52 | NUR ---
CM, nurse and PT discussed the need for Pt to participate with therapies in order to qualify for skilled, Pt voiced understanding but refused to participate today.
[2019-01-14 11:15] VITALS: BP 94/42
[2019-01-14 14:10] VITALS: BP 101/45; BP 102/41; BP 105/45; BP 112/40; BP 114/44
--- NOTE | 2019-01-14 18:53 | NUR ---
ASSUMED PT CARE AT 0700, PTS HGB CRITICALLY LOW AT 6.2, PT RECVD 1 UNIT OF BLOOD THIS SHIFT, ORDER TO RECHECK H&H ENTERED, ASSESSMENT CHARTED. PHYSICIAN'S ASSISTANT TRACING SINUS RHYTHM, HYPOTENSIVE, REMAINS ON 4LPM VIA NC, LS CTA. HIP ABDUCATOR IN PLACE, NEW DRESSING TO SURGICAL SITE PER DR WEST, CLEAN, DRY, AND INTACT. PT REFUSED TO WORK WITH PT/OT THIS SHIFT DISPITE CONT EDUCATION ON IMPORTANCE OF GETTING OUT OF BED. PEG TUBE PATENT, HOB ELEVATED AT ALL TIMES. HOURLY ROUNDING COMPLETED.
[2019-01-14 20:23] VITALS: BP 120/57
[2019-01-14 23:13] LABS: HEMATOCRIT 20.2 % (42.0-52.0)
[2019-01-14 23:15] LABS: HEMOGLOBIN 6.7 gm/dL (14.0-18.0)
[2019-01-15] VITALS: BP 111/49
[2019-01-15 02:04] VITALS: BP 103/44; BP 104/40; BP 112/44; BP 115/46
[2019-01-15 03:15] VITALS: BP 112/44
--- NOTE | 2019-01-15 05:58 | NUR ---
PT IS ABLE TO COMMUNICATE HIS NEEDS TO STAFF WITH MINOR DIFFICULTY; HE IS FORGETFUL AT TIMES AND CAN BE DIFFICULT TO UNDERSTAND AT TIMES. CURRENT PAIN MEDICATION REGIMEN HAS BEEN ADEQUATE FOR CONTROLLING HIS PAIN UP TO THIS TIME. PT RECEIVED 1 UNIT PRBCs OVERNIGHT; TOLERATED WELL. HE IS NPO; HAS PATENT PEG TUBE. RIGHT HIP SURGICAL INCISION INTACT. PT UP TO CHAIR FOR SECOND HALF OF THIS SHIFT; HAD A LOT OF PAIN WHILE IN BED AND COULD NOT GET COMFORTABLE.
[2019-01-15 07:33] LABS: HEMATOCRIT 25.4 % (42.0-52.0); HEMOGLOBIN 8.4 gm/dL (14.0-18.0); MCH 28.1 pg (26.0-34.0); MCHC 33.1 g/dL (28.0-37.0); MCV 84.9 fL (80.0-100.0); MPV 8.3 fl. (7.2-11.1); RBC 2.99 mil/uL (4.50-6.00); RDW-CV 15.1 % (10.5-14.5); WBC 14.7 thou/uL (4.0-11.0)
[2019-01-15 07:38] VITALS: BP 120/46
[2019-01-15 07:38] LABS: CALCIUM 8.9 mg/dL (8.5-10.1); POTASSIUM 4.3 mmol/L (3.5-5.1)
[2019-01-15 11:45] VITALS: BP 118/41
--- NOTE | 2019-01-15 13:48 | NUR ---
Faxed therapy evals to Taty at [facility], she will initiate auth. CM to fax updated OT note once available.
[2019-01-15 16:05] VITALS: BP 96/56
--- NOTE | 2019-01-15 16:09 | NUR ---
ASSESSMENT COMPLETE. PT ALERT AND ORIENTED X3, FORGETFUL OF BEING IN HOSPITAL TODAY. PT GIVEN PRN PAIN MEDICATION ONCE DURING THE DAY. DENIES N/V. PT FEEDS SELF TUBE FEEDS THROUGH G-TUBE. PT Q6 ACCU CHECK, TAKES METFORMIN. PT REFUSES Q2 TURN. CHANGED DRESSING TO RIGHT HIP THIS AM, SATURATED WITH BLOOD, ORHTO CALLED. DRESSING INTACT AT THIS TIME. PT HGB 8.4 TODAY. SR/ST ON TELE MONITOR. VSS. PT IS ON 4L PER NC. PT UP IN CHAIR PART OF THE DAY. PT/OT WORKED WITH PATIENT. IV FLUIDS DC'D, RIGHT FOREARM SALINE LOCKED. PT IS IN BED SLEEPING AT THIS TIME. SEE ASSESSMENT AND VITALS FOR OTHER DETAILS. CALL LIGHT WITHIN REACH, WILL CONTINUE PLAN OF CARE
[2019-01-16] VITALS: BP 113/45
[2019-01-16 04:00] VITALS: BP 107/49
--- NOTE | 2019-01-16 05:09 | NUR ---
ASSUMED CARE OF PT AT 1900. PT IS ALERT AND ORIENTED. VSS. PERRLA. PT REPORTS ONGOING PAIN IN RIGHT HIP. DRESSING ON RIGHT HIP REQUIRED CHANGING. DRESSING WAS SATURATED. PT IS GETTING MEDS THROUGH G TUBE. PT IS IN SINUS RYTHM ON TELEMETRY. PT IS RESTING COMFORTABLY IN BED. RESPIRATIONS ARE EVEN AND NONLABORED. WILL CONTINUE TO MONITOR PT.
[2019-01-16 05:44] LABS: CALCIUM 8.6 mg/dL (8.5-10.1); CREATININE 0.9 mg/dL (0.6-1.3); POTASSIUM 4.1 mmol/L (3.5-5.1)
[2019-01-16 05:47] LABS: HEMATOCRIT 22.2 % (42.0-52.0); HEMOGLOBIN 7.2 gm/dL (14.0-18.0); MCH 28.1 pg (26.0-34.0); MCHC 32.3 g/dL (28.0-37.0); MCV 86.9 fL (80.0-100.0); MPV 8.7 fl. (7.2-11.1); RBC 2.55 mil/uL (4.50-6.00); RDW-CV 15.2 % (10.5-14.5); WBC 15.7 thou/uL (4.0-11.0)
[2019-01-16 08:05] VITALS: BP 117/55
[2019-01-16 12:00] VITALS: BP 127/55
[2019-01-16 16:00] VITALS: BP 98/62
--- NOTE | 2019-01-16 17:25 | NUR ---
PATIENT RESTING IN BED. PATIENT HAS COMPLAINTS OF PAIN TO RIGHT HIP, TREATED PARTIALLY WITH MEDICATION. PATIENT HAS BLEEDING TO INCISION SITE WITH SEROUS DRAINAGE WELL, DR MORENO AND DR MARTINEZ NOTIFIED. PATIENT TOLERATING PEG TUBE FEEDINGS. PATIENT NOT OUT OF BED TODAY, REPOSITIONED PATIENT ALLOWED. PATIENT DENIES ANY NEEDS AT THIS TIME. CALL LIGHT WITHIN REACH. WILL CONTINUE TO MONITOR.
[2019-01-17] VITALS: BP 130/55
--- NOTE | 2019-01-17 02:30 | NUR ---
ASSUMED CARE OF PT AT 1900. PT IS CONFUSED. VSS. ONEIL. PT REPORTS SOME PAIN IN HIS RIGHT HIP. PT RECIEVING HYDROCODONE. PT RECIEVES NUTRITION VIA PEG TUBE. PT IS IN SINUS RYTHM ON THE TELEMETRY. PT IS RESTING COMFORTABLY IN BED. RESPIRATIONS ARE EVEN AND NONLABORED. WILL CONTINUE TO MONITOR PT.
[2019-01-17 04:00] VITALS: BP 146/68
[2019-01-17 08:20] VITALS: BP 106/40
[2019-01-17 09:38] LABS: HEMATOCRIT 22.1 % (42.0-52.0); HEMOGLOBIN 7.2 gm/dL (14.0-18.0); MCH 28.2 pg (26.0-34.0); MCHC 32.5 g/dL (28.0-37.0); MCV 86.9 fL (80.0-100.0); RBC 2.54 mil/uL (4.50-6.00); RDW-CV 14.8 % (10.5-14.5); WBC 14.7 thou/uL (4.0-11.0)
[2019-01-17 10:55] LABS: ALBUMIN 1.8 g/dL (3.4-5.0); DIRECT BILIRUBIN 0.1 mg/dL (<0.1-0.3); TOTAL BILIRUBIN 0.3 mg/dL (<0.1-1.0); TOTAL PROTEIN 5.5 g/dL (6.4-8.2)
[2019-01-17 11:30] VITALS: BP 112/48
--- NOTE | 2019-01-17 13:24 | NUR ---
ASSUMED PT CARE AT 0730, FULL ASSESMENT DONE CHARTED.PT A/O X2, VSS, SR ON THE MONITOR. PT VERY DROWSY, GARBLED SPEECH. PTS MOUTH VERY DRY, CRACKED SKIN, ORAL CARE PROVIDED THIS AM BUT PT REFUSED IT WHEN STAFF OFFERED IT SEVERAL TIMES. PT YELLS OUT IN PAIN WHEN REPOSITIONED IN BED. PHYSICAL THERAPY IN TO SEE THE PT, AT FIRST PT REFUSED SEVERAL TIMES. PT EVENTUALLY STATED HE WANTED TO GET UP. PT VERY DEPENDENT ON STAFF TO HOLD HIMSELF UP ON THE SIDE OF THE BED. WITH THE ASSIST OF 2 STAFF AND WALKER PT WAS ABLE TO STAND AND TRANSFER TO THE CHAIR. TUBE FEEDS DONE CHARTED. MINIMAL RESIDUAL AMOUNT. PT USING URINAL WITH ASSISTANCE.
[2019-01-17 16:00] VITALS: BP 96/68
--- NOTE | 2019-01-17 18:31 | NUR ---
PT TOLERATING TUBE FEEDING WELL. WAS ABLE TO SIT IN CHAIR FOR SEVERAL HOURS THIS AFTERNOON. PT URINATING PER URINAL, WOUND PICTURES TAKEN, DRESSING CHANGED. PT RETURNED TO BED THIS EVENING WITH 2 ASSIST WITH THE WALKER. WILL CONTINUE TO PAUL.
[2019-01-18] VITALS: BP 133/55
--- NOTE | 2019-01-18 03:11 | NUR ---
PT ALERT ORIENTED TO SELF. PT ASKED WHERE AM I AT. PT TEACHING RE: TREATMENTS. BED AND BATH COMPLETED. PT INCONT FREQUENTLY. PEG TUBE INSERTION AREA CRUSTY. CLEANED WITH NS AND DRSED. O2 AT 4 LITERS NC. TUBE FEEDINGS WITH WATER BOLUS FLUSHES. TELEMETRY SHOWS SR.
[2019-01-18 04:00] VITALS: BP 122/46
[2019-01-18 08:00] VITALS: BP 120/54
[2019-01-18 12:18] VITALS: BP 130/54
[2019-01-18 12:50] LABS: CALCIUM 8.8 mg/dL (8.5-10.1); CREATININE 1.1 mg/dL (0.6-1.3); HEMATOCRIT 24.3 % (42.0-52.0); HEMOGLOBIN 7.9 gm/dL (14.0-18.0); MCH 28.1 pg (26.0-34.0); MCHC 32.4 g/dL (28.0-37.0); NUCLEATED RBCS 0 /100WBC; PLATELET COUNT* 209 thou/uL (150-400); POTASSIUM 4.6 mmol/L (3.5-5.1); RDW-CV 15.2 % (10.5-14.5); WBC 19.4 thou/uL (4.0-11.0)
[2019-01-18 13:10] LABS: ABSOLUTE EOSINOPHILS 0.2 thou/uL (0.0-0.7); ABSOLUTE LYMPHOCYTES 1.2 thou/uL (0.8-5.3); ABSOLUTE MONOCYTES 0.2 thou/uL (0.0-1.2); ABSOLUTE NEUTROPHILS 17.8 thou/uL (1.6-8.1); PLATELET ESTIMATE ADEQUATE
[2019-01-18 13:26] LABS: URINE BILIRUBIN NEGATIVE (Negative); URINE BLOOD NEGATIVE (Negative); URINE CLARITY CLEAR; URINE COLOR YELLOW; URINE GLUCOSE-RANDOM NEGATIVE (Negative); URINE KETONES NEGATIVE (Negative); URINE LEUKOCYTES NEGATIVE (Negative); URINE NITRITE NEGATIVE (Negative); URINE PROTEIN TRACE (Negative); URINE SPECIFIC GRAVITY 1.015 (1.005-1.030); URINE UROBILINOGEN 0.2 E.U./dl (0.2-1.0)
--- NOTE | 2019-01-18 14:03 | NUR ---
Pt is medically stable for dc, spoke with Tamara at [facility], continue to await insurance auth. Following.
[2019-01-18 16:29] VITALS: BP 132/60
--- NOTE | 2019-01-18 19:50 | NUR ---
ASSUMED PT CARE AT 0730, FULL ASSESMENT DONE CHARTED. PT ORIENTED X2, FORGETFUL AND CONFUSED. PT COMBATIVE AT TIMES WHEN BEING REPOSITIONED. PT HAS LOW GRADE TEMP. CHANG PLACED TODAY FOR RETENTION, DRAINING YELLOW URINE. UNSURE OF LAST BM, PT GIVEN SUPPOSITORY TODAY. PTS RIGHT HIP DRESSING CHANGED. DRESSING SATURATED WITH YELLOW DRAINAGE. INCISION HEALING, IZZY IN TACT. PT UP TO CHAIR WITH PT, TOLERATED FOR SEVERAL HOURS. TUBE FEEDS DONE CHARTED. PT TOLERATED FEEDINGS WELL. PT TO DC TO [facility], WAITING ON AUTH. SPOKE TO PIO(COUSIN), UPDATED ON PLAN. REPORT GIVEN TO HOLLY PRADHAN
[2019-01-18 20:00] VITALS: BP 96/51
[2019-01-19] VITALS: BP 124/60
[2019-01-19 04:00] VITALS: BP 156/70
--- NOTE | 2019-01-19 04:58 | NUR ---
ASSUMED CARE OF PT AT 1930. PT A&OX2. NOT ORIENTED TO PLACE & TIME. FORGETFUL & CONFUSED AT TIMES. PHYSICAL ASSESSMENT COMPLETED AND CHARTED. PT ON O2 AT 4L NC. PT TRACING SR/ST ON TELE. PT FEEDING THROUGH PEG TUBE. FEEDING WELL TOLERATED. PT WITH CHANG TO DEPENDENT DRAIN. PT COMPLAINS PAIN WHEN TURNING- PAIN MEDS GIVEN. PTS TEMP WAS ELEVATED. PTS REFUSING TYLENOL SUPPOSITORY. ABDUCTION PILLOW IN PLACE. PT TURNED TO SIDES. CALL LIGHT WITHIN REACH.
[2019-01-19 12:00] VITALS: BP 123/55
[2019-01-19 16:05] VITALS: BP 149/68
[2019-01-19 20:00] VITALS: BP 136/59
[2019-01-20] VITALS (8 sets, daily range): BP systolic 111–147; BP diastolic 43–70
--- NOTE | 2019-01-20 05:30 | NUR ---
ASSUMED CARE OF PT AFTER REPORT AT 1930. PT A&OX2. NOT ORIENTED TO PLACE & TIME. FORGETFUL & CONFUSED AT TIMES. PHYSICAL ASSESSMENT COMPLETED AND CHARTED. PT ON O2 AT 4L NC. PT TRACING SR/ST ON TELE. PT TEMP ELEVATED LAST NIGHT. PTS REFUSING TYLENOL SUPPOSITORY. DR BRITT INFORMED WITH NEW ORDER. PT WITH CHANG TO DEPENDENT DRAIN. MAINTAINED ON NPO. PEG TUBE PATENT. FEEDING TOLERATED WELL. PT REFUSED TO BE TURNED AT TIMES EVEN AFTER EDUCATION. HOURLY ROUNDING OBSERVED. CALL LIGHT WITHIN REACH.
[2019-01-20 06:13] LABS: ABSOLUTE BASOPHILS 0.1 thou/uL (0.0-0.2); ABSOLUTE EOSINOPHILS 0.3 thou/uL (0.0-0.7); ABSOLUTE LYMPHOCYTES 0.9 thou/uL (0.8-5.3); ABSOLUTE MONOCYTES 1.6 thou/uL (0.0-1.2); ABSOLUTE NEUTROPHILS 11.8 thou/uL (1.6-8.1); BASOPHILS 0.3 %; EOSINOPHILS 2.2 %; HEMATOCRIT 20.8 % (42.0-52.0); LYMPHOCYTES 6.3 %; MCH 28.4 pg (26.0-34.0); MCHC 32.6 g/dL (28.0-37.0); MCV 87.2 fL (80.0-100.0); MONOCYTES 10.8 %; MPV 7.7 fl. (7.2-11.1); NUCLEATED RBCS 0 /100WBC; PLATELET COUNT* 214 thou/uL (150-400); POLYS 80.4 %; RBC 2.38 mil/uL (4.50-6.00); RDW-CV 15.6 % (10.5-14.5); WBC 14.7 thou/uL (4.0-11.0)
[2019-01-20 06:29] LABS: HEMOGLOBIN 6.8 gm/dL (14.0-18.0)
[2019-01-20 07:22] LABS: ESR (SEDRATE) 130 mm/hr (0-20)
--- NOTE | 2019-01-20 10:55 | NUR ---
RECEVIED REPORT FROM HOLLY AND ASSUMED CARE OF PT @ 0711.PT IS ALERT BUT CONFUSED AND FORGETFUL.PT TRACING SR WITH PACS ON THE MONITOR.VSS.IV PATENT AND SALINE LOCKED.NEW IV INSERTED IN LEFT AC.CHANG SECURE AND PATENT.PEG TUBE SECURE AND PATENT-AM FEEDING GIVEN WITH MORNING MEDICATIONS.PT IS CALM AND COOPERATIVE WITH C/O PAIN ALL OVER HIS BODY-MEDICATIONS GIVEN.PT REFUSED TO WORK WITH PHYSICAL THERAPY THIS AM.PT RECEIVED ONE UNIT OF BLOOD THIS AM.PT LEFT RESTING IN BED WITH CALL LIGHT AND FALL PRECAUTIONS IN PLACE.WILL CONTINUE TO MONITOR.
--- NOTE | 2019-01-20 11:57 | CON ---
[address] [address] CONSULTATION Name: LATOYAROGEIona ROWELL Room: [address] IN M.R.#: [id number] Admission: 01/11/19 Attend Phys: Cristhian Hampton, Discharge: Date of : 46 Report #: [id number] THIS REPORT FOR: //name// CC: Randolph Hampton DATE OF SERVICE: 01/19/2019 INFECTIOUS DISEASE CONSULTATION ATTENDING PHYSICIAN: Dr. Cristhian Hampton. REASON FOR EVALUATION: Nosocomial fevers. HISTORY OF PRESENT ILLNESS: Chart reviewed, patient examined. This is a 68-year-old known to myself, has a history of head and neck cancer, complicated by swallowing difficulty. He does have an enteral feeding tube in place for a number of years. He does have issues of aspiration pneumonitis, also has an indwelling Givens catheter, who was admitted through the Emergency Room with complaints of right-sided hip pain, did have a trip and fall. He was not noted to have any fevers or chills. Evaluation suggested displaced subcapital right hip fracture, underwent hemiarthroplasty of the right hip. He was scheduled to go to rehab, however, developed fevers in excess of 101 degrees Fahrenheit. He is somewhat encephalopathic. On questioning, describes right lower quadrant pain. He does have ongoing issues with dyspnea, although this is unchanged. He does have a bit of a cough. Followup chest x-ray was noted for chronic changes. Urinalysis unremarkable as well. He had been on empiric therapy with cefazolin for a number of days. ALLERGIES: None known. MEDICATIONS: Include cefazolin, ferrous sulfate, multivitamin, metformin, pantoprazole, montelukast, insulin sliding scale, p.r.n. analgesics and antiemetics. 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 He has COPD with emphysematous changes, diabetes mellitus type 2, hypertension, chronic pain syndrome associated with his back, does have enteral feeding tube dating back 2017. SOCIAL HISTORY: Former smoker. No ethanol. No illicit drug use. FAMILY HISTORY: Noncontributory. REVIEW OF SYSTEMS: Somewhat limited due to his somnolence and encephalopathy, [place] [address] CONSULTATION Name: DARRIUSROGE GARCIA SORIN Room: [address] IN [facility]#: [id number] Admission: 01/11/19 Attend Phys: Cristhian Hampton, Discharge: Date of : 46 Report #: [id number] otherwise noted as above in the history of present illness. PHYSICAL EXAMINATION: GENERAL: Appears chronically ill, undernourished. He does arouse, does have some degree of recognition, he is known to me from 2 years prior. He does admit to abdominal pain, specifically right lower quadrant, but immediately falls back to sleep. VITAL SIGNS: Temperature max 101.8 earlier, now 98.5; pulse 89, respirations 18, blood pressure 123/55. SKIN: Warm, dry, several contused areas. HEENT: Normocephalic. Extraocular muscles intact. NECK: Supple. LUNGS: Scattered coarse breath sounds, overall diminished. HEART: Regular. I do not appreciate any murmur. MOUTH: He is edentulous. No sinus tenderness. ABDOMEN: Tender in the right lower quadrant, seemingly above the inguinal site. There are no overt peritoneal signs. GENITOURINARY: Deferred. RECTAL: Deferred. LABORATORY DATA: Lactic acid of 1.8. Chest x-ray shows decreased inspiration with moderate increase in basilar density, likely to have atelectasis. Urinalysis unremarkable. CBC: White count of 9.4, H and H 7.9 and 24.3, platelets of 209. Differential showed neutrophilia. Hepatic panel from 2 days ago was otherwise unremarkable. Albumin 1.8, total protein 5.5. Prealbumin 9.3. Sed rate was 110. ASSESSMENT: Nosocomial fevers in a patient that certainly has risk for infectious complications having been hospitalized for an excess of a week and having a procedure. We will broaden antimicrobial therapy. Due to the right lower quadrant pain, I think it is reasonable to image that site, would include the right hip as well to make sure there is no localized fluid collection to suggest surgical site infection. We will see how he does clinically. He has got very little reserve. He certainly could have pneumonitis given his emphysema made more pronounced changes on his chest x-ray. Monitor expectantly. <ELECTRONICALLY SIGNED> By: Zachary Peres MD 01/20/19 1157 [id number] Peres MD /nt
--- NOTE | 2019-01-20 12:14 | NUR ---
Nutrition: Pt continues on chronic TF regimen; meeting 100% est needs. Albumin 1.8, CO2 33. BG elevated. Metformin, iron, MVI and other meds reviewed. Wt up significantly from admit. I>O past week. Will not recommend and changes to his TF at this time. Assessed at low-mild nutrition risk.
--- NOTE | 2019-01-20 12:50 | OP ---
[address] [address] OPERATIVE REPORT Name: LATOYAROGEIona ROWELL Room: [address] IN M.R.#: [id number] Admission: 01/11/19 Attend Phys: Cristhian Hampton, Discharge: Date of : 46 Report #: [id number] THIS REPORT FOR: //name// CC: Randolph Hampton DATE OF SERVICE: 01/12/2019 FAMILY PHYSICIAN: Randolph Bonds. PREOPERATIVE DIAGNOSIS: Displaced subcapital right hip fracture. POSTOPERATIVE DIAGNOSIS: Displaced subcapital right hip fracture. OPERATION PERFORMED: Hemiarthroplasty, right hip. SURGEON: Reggie Singh DO. POCKETBOOK MAKER: Emeterio Lima. ANESTHESIA: General. GROSS PATHOLOGY: There was evidence of a closed displaced subcapital right hip fracture. Gross appearance revealed a normal type of subcapital right hip fracture, but because of the patient's history of tongue cancer the femoral head was sent to pathology for evaluation. There was evidence of contractures about the right hip consistent with the patient's minimal activity. He does have a right foot drop from a previous back problem. DESCRIPTION OF PROCEDURE: The patient was brought to the operating room where general anesthetic was administered. Preoperative antibiotics were given. General anesthetic was administered. The patient was placed on the operating table in lateral position, right hip up. Hibiclens scrub and a ChloraPrep, prep were done to the right hip, leg. The patient draped in a sterile manner. An incision was then made approximately 5 inches in length from the lateral aspect of the right hip. It was carried down through the skin and subcuticular material by sharp dissection. Tensor fascia radha split in line with the incision. Gluteus medius and minimus are elevated from the musculotendinous junction. An opening H-type capsulotomy was performed. The femoral neck was marked, osteotomy was performed. The femoral head was removed, measured 51 trial was noted to fit well. It is removed. The box osteotome was utilized to remove the medial portion of the greater trochanter. The T-reamer was placed down the shaft and the trochanteric broach is also utilized. The femur was then reamed utilizing the broaches up to size 13, which was a good fit. The trial components were assembled. The hip was reduced. The hip was stable. Components fit well. The components were [place] [address] OPERATIVE REPORT Name: ROGE KLEIN Room: [address] IN [facility]#: [id number] Admission: 01/11/19 Attend Phys: Cristhian Hampton, Discharge: Date of : 46 Report #: [id number] size 13 femoral stem, a 0+9 neck length and a 51 mm bipolar cup. The femoral stem was impacted into position and noted to fit well. The final femoral head bipolar cup were impacted on to the femoral stem. The hip was reduced. Components fit well and the hip was stable. The capsule was closed with a #1 Vicryl suture, 5 Tycron utilized for reattachment of the gluteus muscles to the greater trochanter. Tensor fascia radha closed with #1 Vicryl, subcutaneous with 2-0 Vicryl, and darnell on the skin. Estimated blood loss approximately 200 mL. The wound was thoroughly irrigated throughout the entire procedure. Needle and sponge count reported as correct. Hemostasis was maintained during surgery. The incisional area is anesthetized with Marcaine 0.5% plain, approximately 30 mL. The patient was transferred to the recovery room in good condition. <ELECTRONICALLY SIGNED> By: Larry Kay DO 01/20/19 1250 [id number] Singh DO /nixon
[2019-01-20 13:29] LABS: HEMATOCRIT 23.8 % (42.0-52.0); HEMOGLOBIN 7.7 gm/dL (14.0-18.0)
--- NOTE | 2019-01-20 16:57 | NUR ---
VSS.CARDIAC MONITORING IN PLACE WITH NO CHANGES.PT REMAINS ON 4L O2 NC.PAIN MANAGED WELL WITH MEDICATIONS.IV PATENT AND SALIN ELOCKED.IV ANTIBIOTICS GIVEN.PT STRICT NPO MAINTAINED.Q2 HOUR POSITION CHANGE COMPLETED.ABDUCTOR PILLOW IN PLACE.PM TUBE FEEDING GIVEN.PT REFUSED TO GET UP WITH PHYSICAL THERAPY.HOURLY ROUNDING COMPELTED FOR PT SAFETY.CALL LIGHT AND FALL PRECAUTIONS IN PLACE.WILL CONTINUE TO MONITOR FOR DURATION OF SHIFT.
[2019-01-21 03:51] VITALS: BP 105/66
--- NOTE | 2019-01-21 06:03 | NUR ---
ASSUMED CARE OF PT AFTER REPORT AT 1930. PT A&OX3 AT THE START OF THE SHIFT AND CONFUSED THIS AM. VSS. PHYSICAL ASSESSMENT COMPLETED AND CHARTED. PT ON O2 AT 4L NC. PT TRACING SR ON TELE. PT COMPLAINED OF LEFFT HIP & BACK PAIN- PAIN MEDS GIVEN PER OCT. PT WITH CHANG TO DEPENDENT DRAIN. PT REFUSING TURNS AT TIMES EVEN AFTER EDUCATION. PEG TUBE PATENT. FEEDING WELL TOLERATED. PT RESTED WELL ON BED. CALL LIGHT WITHIN REACH.
[2019-01-21 08:00] VITALS: BP 121/58
--- NOTE | 2019-01-21 08:20 | NUR ---
RECEVIED REPORT FORM HOLLY AND ASSUMED CARE OF PT @ 3396.PT IS ALERT BUT CONFUSED AND FORGETFUL.VSS,TRACING SR ON THE MONITOR.IV RIGHT FOREARM PATENT AND SALINE LOCKED.IV LEFT AC PATENT AND SLAINE LOCKED.CHANG SECURE AND PATENT.PEG TUBE SECURE AND PATENT.PT IS CALM AND COOPERATIVE WITH NO C/O PAIN AT TIME OF ASSESSMENT.PT LEFT RESTING IN BED WITH CALL LIGHT AND FALL PRECAUTIONS IN PLACE. WILL CONTINUE TO MONITOR.
[2019-01-21 11:30] VITALS: BP 133/65
[2019-01-21 16:22] VITALS: BP 138/62
--- NOTE | 2019-01-21 17:47 | NUR ---
VSS.CARDIAC MONITORING IN PLACE WITH NO CHANGES.PT REMAINS ON 4L O2 NC.PAIN MANAGED WELL WITH MEDICATIONS.IV LEFT AC PATENT AND SALINE LOCKED.RIGHT FOREARM IV REMOVED DUE TO INFILTRATION.CHANG SECURE AND PATENT.PT STRICT NPO MAINTAINED.PEG TUBE SECURE AND PATENT.TUBE FEEDINGS GIVEN.JORGE KAUR STARTED ON PT THROUGH PEG TUBE.PT HAD A CRITICAL VANC TROUGH OF 27 AND VANC HELD.PT INFORMED OF PLAN OF CARE AND COMMUNICATES UNDERSTANDING.PT GOT UP WITH PHYSICAL THERAPY TO CHAIR.HOURLY ROUNDING COMPELTED FOR PT SAFETY.CALL LIGHT AND FALL PRECAUTIONS IN PLACE.WILL CONTINUE TO MONITOR FOR DURATION OF SHIFT.
[2019-01-21 20:00] VITALS: BP 125/68
[2019-01-21 23:49] VITALS: BP 104/59
[2019-01-22 04:00] VITALS: BP 159/72
--- NOTE | 2019-01-22 05:08 | NUR ---
ASSUMED CARE OF PT AFTER REPORT AT 1930. PT A&OX3. NOT ORIENTED TP TIME. FORGETFUL & CONFUSED AT TIMES. VSS. PHYSICAL ASSESSMENT COMPLETED AND CHARTED. PT ON O2 AT 4L NC. PT UP WITH 3 ASSIST FROM RECLINER TO BED. PT WITH CHANG TO DEPENDENT DRAIN. PT DRESSING TO RIGHT HIP C/D/I. PT COMPLAINED OF BACK & RIGHT HIP PAIN- PAIN MEDS GIVEN PER OCT. PT WITH PEG TUBE PATENT. FEEDING & GOLYTELY WELL TOLERATED. PT WITH EPISODE OF INCONTINENT BOWEL. PT TURNED TO SIDES. PT RESTED WELL ON BED.CALL LIGHT WITHIN REACH.
--- NOTE | 2019-01-22 10:26 | NUR ---
PATIENT WAS EVAULATION BY REHAB PHYSICIAN FOR ACUTE REHAB. PATIENT IS UNABLE TO TOLERATE 3 HOURS OF THERAPY AT THIS TIME AND OFTER REFUSES OOB THERAPY ACTIVITIES OR THERAPY AT ALL. DOES NOT QUALIFY FOR ACUTE REHAB BUT WOULD BENEFIT FROM SKILLED AT DISCHARGE.
[2019-01-22 12:46] VITALS: BP 140/55
--- NOTE | 2019-01-22 13:19 | NUR ---
CONTINUE TO FOLLOW, MET WITH PT, ENCOURAGED HIM TO WORK WITH THERAPY. HE IS ANXIOUS TO GET TO SNF AT [facility]. SPOKE WITH MICHELLE/DEIDRE, THEY CAN ACCEPT PT SOON THEY HAVE INSURANCE AUTH. THEY ARE HAVING TO RESUMBIT IT TODAY, FAXED UPDATED CLINICAL. ORDERS RECEIVED, AWAIT AUTH
--- NOTE | 2019-01-22 16:28 | NUR ---
SPOKE WITH PT'S COUSIN/PIO AND UPDATED ON DC PLAN TO SNF. GAVE HER NUMBER TO [facility] AND MADE AWARE IT IS JUST PENDNING INS AUTH
[2019-01-22 17:07] VITALS: BP 113/49
--- NOTE | 2019-01-22 18:30 | NUR ---
ASSUMED PT CARE AT 0700, PT A&O X4 WITH FORGETFULNESS, TAZLINA. PIPE LINER TRACING SINUS RHYTHM, VSS, REMAINS ON 4LPM O2. CHANG PATENT AND DRAINING DARK YELLOW URINE, PEG TUBE PATENT, ALL MEDS FLUSHED WITH 240ML OR WATER, JEVITY 1.5 ADMINISTERED DIRECTED, HOB ELEVATED AT ALL TIMES. PT REFUSED PT THIS SHIFT BUT DID AGREE TO TRANSFER TO BEDSIDE COMMODE FOR BM. UP WITH ASSIST X2 AND GAIT BELT, PT UNSTEADY AND WEAK. HOURLY ROUNDING COMPLETED, POSSIBLE DC TOMORROW TO REHAB FACILITY, PENDING APPROVAL FROM INSURANCE.
[2019-01-22 20:00] VITALS: BP 125/51
[2019-01-23] VITALS: BP 134/50
[2019-01-23 04:00] VITALS: BP 142/70
--- NOTE | 2019-01-23 06:48 | NUR ---
ASSUMED PT CARE AT 1930. ASSESSMENT COMPLETED CHARTED. PT YELLS OUT WHEN NEEDING PAIN MEDICATIONS, C/O PAIN IN HIP AND CHRONIC BACK PAIN. PT REFUSED SUPPER AND STATED THAT HE HURT TOO BAD. S4BRNIE COMPLETED CHARTED. CHANG IN PLACE DRAINING YELLOW URINE. PEG TUBE IN PLACE AND FLUSHES EASILY. PT RESTING IN BED AT THIS TIME. WILL CONTINUE TO MONITOR.
[2019-01-23 08:00] VITALS: BP 138/64
[2019-01-23 13:12] VITALS: BP 133/66
--- NOTE | 2019-01-23 14:04 | NUR ---
ISAAC followed up with Bonnie in admissions at [facility] and insurance auth is still pending for pt to admit to SNF; possibly not received until Friday, but Bonnie said she would contact hospital if/when auth is received.
--- NOTE | 2019-01-23 18:46 | NUR ---
PT ALERT, ORIENTED TO SELF AND PLACE. SOME CONFUSION PERIODICALLY. TELE TRACKING SR AND ALL VSS ON ROOM AIR. C/O BACK AND HIP PAIN-MEDICATED PER EMAR. GI RESIDUALS <5CC AND TOLERATES BOLUS FEEDINGS. REFUSED PT TODAY- EDUCATED ON IMPORTANCE OF WORKING WITH THERAPIES. Q2 TURNS. CHANG TO DD. PLEASE SEE ASSESSMENT FOR ADDITIONAL INFORMATION. WILL CONT TO MONITOR
[2019-01-23 20:00] VITALS: BP 144/63
[2019-01-24] VITALS: BP 167/70
[2019-01-24 04:00] VITALS: BP 114/51
[2019-01-24 04:48] LABS: HEMATOCRIT 27.5 % (42.0-52.0); HEMOGLOBIN 9.1 gm/dL (14.0-18.0); MCH 29.5 pg (26.0-34.0); MCHC 33.2 g/dL (28.0-37.0); MPV 8.3 fl. (7.2-11.1); RBC 3.08 mil/uL (4.50-6.00); RDW-CV 16.1 % (10.5-14.5); WBC 20.4 thou/uL (4.0-11.0)
[2019-01-24 04:58] LABS: CALCIUM 8.9 mg/dL (8.5-10.1); MAGNESIUM 1.9 mg/dL (1.8-2.4); POTASSIUM 5.6 mmol/L (3.5-5.1)
--- NOTE | 2019-01-24 07:00 | NUR ---
ASSUMED PT CARE AT 1930. ASSESSMENT COMPLETED CHARTED. ABLE TO MAKE NEEDS KNOWN. PT REFUSED TURNS AND MEDICATIONS. PT RESTING IN BED AT THIS TIME. PT HAD 2 LARGE LOOSE BM AND GOT UPSET AT US FOR CLEANING HIM UP. C/O CHRONIC PAIN AND GAVE 1 PRN PAIN MEDICATION. WILL CONTINUE TO MONITOR.
[2019-01-24 07:10] VITALS: BP 152/61
--- NOTE | 2019-01-24 09:15 | NUR ---
INITAL ASSESSMENT COMPLETED. VSS. TRACING SR ON MONITOR. PT REPORTS 8-9/10 PAIN IN RIGHT HIP. MEDS GIVEN PER EMAR. PT DESIRAE ANY FURTHER NEEDS AT THIS TIME. FALL PRECAUTIONS AND HOURLY ROUNDING IN PLACE FOR PT SAFETY, CLWR.
[2019-01-24 10:52] LABS: HEMATOCRIT 27.7 % (42.0-52.0); HEMOGLOBIN 9.1 gm/dL (14.0-18.0); MCH 29.1 pg (26.0-34.0); MCHC 32.9 g/dL (28.0-37.0); MCV 88.6 fL (80.0-100.0); MPV 7.5 fl. (7.2-11.1); RBC 3.13 mil/uL (4.50-6.00); RDW-CV 16.2 % (10.5-14.5)
[2019-01-24 11:00] LABS: POTASSIUM 4.4 mmol/L (3.5-5.1)
[2019-01-24 16:00] VITALS: BP 126/64
[2019-01-24 20:00] VITALS: BP 124/64
[2019-01-25] VITALS: BP 122/59
--- NOTE | 2019-01-25 05:23 | NUR ---
ASSUMED CARE OF PT AFTER REPORT AT 1930. PT A&OX3. FORGETFUL. VSS. PHYSICAL ASSESSMENT COMPLETED AND CHARTED. PT ON O2 AT 4L NC. PT ON MEDSURG STATUS. PT PT WITH PEG TUBE PATENT. PT COMPLAINED OF BACK & RIGHT HIP PAIN- MEDS GIVEN PER MAR. TURNED TO SIDES. HOURLY ROUNDING OBSERVED. CALL LIGHT WITHIN REACH.
[2019-01-25 05:33] LABS: HEMATOCRIT 28.7 % (42.0-52.0); HEMOGLOBIN 9.4 gm/dL (14.0-18.0); MCH 29.2 pg (26.0-34.0); MCHC 32.7 g/dL (28.0-37.0); MCV 89.1 fL (80.0-100.0); MPV 8.5 fl. (7.2-11.1); RBC 3.22 mil/uL (4.50-6.00); RDW-CV 16.3 % (10.5-14.5); WBC 13.9 thou/uL (4.0-11.0)
[2019-01-25 05:35] LABS: CALCIUM 9.1 mg/dL (8.5-10.1); MAGNESIUM 1.9 mg/dL (1.8-2.4); POTASSIUM 4.7 mmol/L (3.5-5.1)
[2019-01-25 08:00] VITALS: BP 130/61
--- NOTE | 2019-01-25 10:23 | NUR ---
PT ALERT AND FORGETFUL. MED SURG STATUS AND ALL VSS ON 4L (BASELINE). DENIES CP, SOA. C/O RIGHT HIP AND BACK PAIN-MEDICATED PER EMAR. TOLERATING TF. ENCOURAGED TO WORK WITH THERAPY TODAY. PLANS FOR DC TODAY. EDUCATED ON SAFETY AND PLAN OF CARE. PLEASE SEE ASSESSMENT FOR ADDITIONAL INFORMATION. WILL CONT TO MONITOR
[2019-01-25] MEDS ORDERED: LEVAQUIN 500 M500 M1 PO (10:32)
[2019-01-25] MEDS ORDERED: ELIQUIS5 MG PO (10:32)
[2019-01-25] MEDS ORDERED: SENNA PLUS TAB1 EACH PO (10:32)
[2019-01-25] MEDS ORDERED: TRAMADOL 50 MG50 MG PO (10:32)
[2019-01-25] MEDS ORDERED: LIDOPATCH1 EACH TOP (10:32)
[2019-01-25] MEDS ORDERED: FERROUS SU300 MG/5 M PERTUBE (10:32)
[2019-01-25] MEDS ORDERED: IPRAT-ALBUT 0.5-3 ML INH (10:32)
[2019-01-25] MEDS ORDERED: NORCO 7.5-3251 EACH PO (10:32)
[2019-01-25] MEDS ORDERED: XANAX1 MG PER TUBE (10:32)
--- NOTE | 2019-01-25 11:04 | NUR ---
INSTRUCTOR PRODUCT INSPECTION INFORMED OF PATIENT'S INSURANCE AUTH FOR [facility] SKILLED. D/C FORESTRY TREE PRUNER FAXED PATIENT'S D/C ORDERS TO [facility]. D/C FORESTRY TREE PRUNER INFORMED PATIENT AND HIS COUSIN PIO OF PATIENT'S D/C AND TIME OF TRANSPORT. D/C FORESTRY TREE PRUNER INFORMED THE RN IN-CHARGE OF THE PATIENT OF THE PATIENT'S TIME OF D/C AND WHERE TO CALL REPORT. CM WILL REMAIN AVIALABLE TO ASSIST AND FOLLOW NEEDED. [facility] PHONE: [phone]
[2019-01-25 16:00] VITALS: BP 105/80
[2019-01-25 20:00] VITALS: BP 135/55
[2019-01-26] VITALS: BP 114/51
--- NOTE | 2019-01-26 05:42 | NUR ---
ASSUMED CARE OF PT AFTER REPORT AT 1930. PT A&OX4. FORGETFUL & CONFUSED AT TIMES. VSS. PHYSICAL ASSESSMENT COMPLETED AND CHARTED. PT WANTS TO GO HOME AT THE START OF THE SHIFT. REORIENTATION DONE. THIS NURSE EXPLAINS TO THE PT THAT GOING TO SNF IS BENEFICIAL FOR HIM AND PT AGREED. UPDATED. PT COMPLAINED OF RIGHT HIP & BACK PAIN- MEDS GIVEN PER MAR. CALL LIGHT WITHIN REACH.
[2019-01-26 08:17] VITALS: BP 103/43
[2019-01-26] MEDS ORDERED: ALBUTEROL2.5 MG/31 INH (09:54)
--- NOTE | 2019-01-26 10:22 | NUR ---
ASSUMED CARE OF PT AROUND 0730 THIS AM. REFER TO ASSESSMENT. PT REPORTS THIS AM THAT HE IS AGREEABLE TO DC [place] [facility] TODAY. PT REPORTS HE SPOKE WITH A FAMILY MEMBER THAT EXPLAINED HE NEEDS REHAB TO GET STRENGTH TO GO HOME. NOTED, THAT LATER THIS AM, PT MORE CONFUSED AND ADAMENT HIS MEDICATIONS ARE IN THE ROOM AND "THE GOVERNMENT DOESN'T GET TO DECIDE WHERE HIS MEDS ARE." ATTEMPTED TO REORIENT PT. PT TO TRANSFER TO [facility] BY AMBULANCE AROUND 1200. PT TOLERATED MEDS AND TUBE FEEDING THIS AM. NO OTHER CONCERNS AT THIS TIME. CLWR. WCTM.
--- NOTE | 2019-01-26 11:43 | NUR ---
REPORT CALLED TO [facility] AT THIS TIME. ALL CONCERNS ADDRESSED. SECURITY NOTIFIED THAT PT IS EXPECTED TO DC TO [facility]. BELONGINGS REVIEWED AND NOTED THAT PT HAS ABOUT $25,000 IN [employer] CHECKS AND $1500 IN [place]. [facility] NOTIFIED AND THEY WILL LOCK UP BELONGINGS UPON ARRIVAL. ONCE [facility]ICS ARRIVE FOR TRANSPORT, THEY WILL BE SENT TO SECURITY WITH PATIENT TO SIGN OUT BELONGINGS THEN. NO OTHER CONCERNS AT THIS TIME. CLWR. WCTM.
--- NOTE | 2019-01-26 12:10 | NUR ---
C TRANSPORTING PATIENT AT THIS TIME. PT REFUSED TO LEAVE ONCE THEY ARRIVED, ATTEMPTS TO REORIENT AND EDUCATE PT ON PLAN OF CARE. PT AGREEABLE AND PARAMEDICS ASSISTED TO CART. NO OTHER CONCERNS AT THIS TIME.
== END 2019-01-26 12:10 | DRG 469 ==
LOC: M.ERS 18:17 → M.TBA-ER 19:19 → M.ORTHSURG 19:19 → M.2W 19:19 → M.ORTHSURG 19:59 → M.2W 01-12 15:59
PROVIDERS: Family Medicine; Internal Medicine; Orthopaedic Surgery; ADMIT Family Medicine
PROC: 0SRR0JZ Replacement of Right Hip Joint, Femoral Surface with Synthetic Substitute, Open Approach (ICD-10-PCS; principal; 2019-01-12)
PROC: 30233N1 Transfusion of Nonautologous Red Blood Cells into Peripheral Vein, Percutaneous Approach (ICD-10-PCS; 2019-01-15)
DX: S72.001A Fracture of unspecified part of neck of right femur, initial encounter for closed fracture (principal); G92 Toxic encephalopathy; E43 Unspecified severe protein-calorie malnutrition; J18.9 Pneumonia, unspecified organism; J96.11 Chronic respiratory failure with hypoxia; I50.32 Chronic diastolic (congestive) heart failure; D62 Acute posthemorrhagic anemia; I13.0 Hypertensive heart and chronic kidney disease with heart failure and stage 1 through stage 4 chronic kidney disease, or unspecified chronic kidney disease; M54.9 Dorsalgia, unspecified; G89.4 Chronic pain syndrome; R13.10 Dysphagia, unspecified; N18.2 Chronic kidney disease, stage 2 (mild); E11.22 Type 2 diabetes mellitus with diabetic chronic kidney disease; D63.1 Anemia in chronic kidney disease; E83.42 Hypomagnesemia; I48.2 Chronic atrial fibrillation; D72.829 Elevated white blood cell count, unspecified; J43.9 Emphysema, unspecified; Z85.810 Personal history of malignant neoplasm of tongue; Z92.21 Personal history of antineoplastic chemotherapy; Z92.3 Personal history of irradiation; Z87.891 Personal history of nicotine dependence; Z93.1 Gastrostomy status; Z68.26 Body mass index [BMI] 26.0-26.9, adult; Z79.899 Other long term (current) drug therapy

== ENCOUNTER 2019-02-22 22:26 | Inpatient (IN) | payer OTHER ==
[~2019-02-22] VITALS: Ht 180.3 cm; Wt 74.8 kg
[~2019-02-22 22:26] MED LIST changes: +ALBUTEROL2.5 MG/31 INH; +BREO ELLIPTA 11 EACH INH; +ELIQUIS5 MG PO; +FERROUS SU300 MG/5 M PERTUBE; +IPRAT-ALBUT 0.5-3 ML INH; +LEVAQUIN 500 M500 M1 PO; +LIDOPATCH1 EACH TOP; +NORCO 7.5-3251 EACH PO; +SENNA PLUS TAB1 EACH PO; +TRAMADOL 50 MG50 MG PO
[2019-02-22 22:37] VITALS: BP 141/66
[2019-02-22 22:57] LABS: ABSOLUTE BASOPHILS 0.1 thou/uL (0.0-0.2); ABSOLUTE LYMPHOCYTES 0.5 thou/uL (0.8-5.3); ABSOLUTE MONOCYTES 1.2 thou/uL (0.0-1.2); ABSOLUTE NEUTROPHILS 20.2 thou/uL (1.6-8.1); BASOPHILS 0.6 %; EOSINOPHILS 0.1 %; HEMOGLOBIN 11.1 gm/dL (14.0-18.0); LYMPHOCYTES 2.4 %; MCH 29.4 pg (26.0-34.0); MCHC 32.6 g/dL (28.0-37.0); MCV 90.3 fL (80.0-100.0); MONOCYTES 5.2 %; MPV 8.6 fl. (7.2-11.1); NUCLEATED RBCS 0 /100WBC; PLATELET COUNT* 235 thou/uL (150-400); POLYS 91.7 %; RBC 3.77 mil/uL (4.50-6.00); RDW-CV 16.3 % (10.5-14.5); WBC 22.1 thou/uL (4.0-11.0)
[2019-02-22 23:11] LABS: ANION GAP 11 mmol/L (7-16); BUN 35 mg/dL (7-18); CALCIUM 9.6 mg/dL (8.5-10.1); CHLORIDE 99 mmol/L (98-107); CO2 31 mmol/L (21-32); CREATININE 1.2 mg/dL (0.6-1.3); GLUCOSE 170 mg/dL (70-99); POTASSIUM 4.3 mmol/L (3.5-5.1); SODIUM 141 mmol/L (136-145)
[2019-02-22 23:16] LABS: APTT 33.4 Seconds (25.0-31.3); INR 1.1; PROTIME 11.4 Seconds (9.20-11.50)
[2019-02-22 23:22] LABS: ALBUMIN 3.6 g/dL (3.4-5.0); ALKALINE PHOSPHATASE 91 U/L (46-116); NT-PRO BRAIN NAT PEPTIDE 218 pg/mL (<300); SGOT 18 U/L (15-37); SGPT 18 U/L (30-65); TOTAL BILIRUBIN 0.5 mg/dL (<0.1-1.0); TROPONIN-I LEVEL <0.06 ng/mL (<0.06)
[2019-02-23 02:50] VITALS: BP 127/58
[2019-02-23 03:00] VITALS: BP 119/50
--- NOTE | 2019-02-23 03:00 | NUR ---
ADMITTED TO ROOM FROM ER. PT C/O CONSTANT CRAMPING IN ELIZAEBTH LEGS AND DEMANDING PAIN MED, EXPLAINED IT WAS GIVEN IN ER SO TOO SOON. PT REFUSING TO REMOVE URINE SOAKED PANTS AND SHOES. PT ALREADY THREATING LEAVING AMA. ATTEMPTED TO GIVE REASSURANCE. TELEMETRY SHOWING ST. SEE ADMISSION ASSESSMENT AND HX. WILL CONT TO MONITOR AND ASSIST NEEDED.
[2019-02-23 03:06] LABS: URINE BILIRUBIN NEGATIVE (Negative); URINE BLOOD NEGATIVE (Negative); URINE CLARITY CLEAR; URINE COLOR YELLOW; URINE GLUCOSE-RANDOM NEGATIVE (Negative); URINE KETONES NEGATIVE (Negative); URINE LEUKOCYTES-REFLEX NEGATIVE (Negative); URINE NITRITE-REFLEX NEGATIVE (Negative); URINE PROTEIN NEGATIVE (Negative); URINE SPECIFIC GRAVITY <= 1.005 (1.005-1.030); URINE UROBILINOGEN 0.2 E.U./dl (0.2-1.0)
--- NOTE | 2019-02-23 06:53 | NUR ---
PT C/O ELIZABETH LEG PAIN, IV PAIN MED GIVEN. PT DEMANDING IT MORE OFTEN BECAUSE WE DON'T KNOW WHAT PAIN FEELS LIKE. PT VERY NON-COMPLIANT, DEMANDING MANPULATIVE. NOTED PT CALM AND RESTING UPON ENTERING ROOM AND THEN BECAME AGITATED WHEN AWARE OF STAFF. REFUSING TO HAVE IVF STARTED STATING HE WAS GOING TO LEAVE THIS MORNING ANYWAY BECAUSE HE COULD GET HIS OWN PAIN MEDS AT HOME. ATTEMPTED REASSURANCE BUT TOO AGITATED. TELEMETRY CONT TO SHOW ST. UNABLE TO ADVANCE TOWARDS GOALS. HOURLY ROUNDING OBSERVED.
--- NOTE | 2019-02-23 07:05 | NUR ---
CHANGE OF SHIFT BEDSIDE REPORT GIVEN PATIENT SEEN AT BEDSIDE, IN BED RESTING ASSUMED PATIENT CARE
[2019-02-23 08:00] VITALS: BP 120/50
--- NOTE | 2019-02-23 09:25 | NUR ---
PT REFUSING ABG AT THIS TIME PT REMAINS ON 4LPM NC PT WEARS AT HOME
--- NOTE | 2019-02-23 11:01 | EKG ---
[place] [address] ELECTROCARDIOGRAM REPORT Name: ROGE KLEIN Room: [address] ADM IN M.R.#: [id number] Admission: 02/23/19 Attend Phys: Jorje Isaac MD Discharge: Date of : 46 Report #: [id number] THIS REPORT FOR: //name// [facility] ED Test Date: 2019-02-22 Test Time: 22:49:22 Pat Name: ROGE KLEIN Department: Room: [facility] Gender: M Housekeeping Room Inspector: [place] : 1950 Requested By: Lorenzo Banegas Order Number: [id number] MD: Reggie Grace Measurements Intervals [place] Rate: 101 P: 61 CA: 143 QRS: 41 QRSD: 84 T: 7 QT: 336 QTc: 436 Interpretive Statements Sinus tachycardia Compared to ECG 01/11/2019 22:33:32 Sinus rhythm no longer present Electronically Signed On 02-23-2019 11:01:03 CDT by Reggie Grace [email or web address] <ELECTRONICALLY SIGNED> By: Reggie Grace MD, [facility] 02/23/19 1101 2249 2249 Reggie Grace MD, FAC /EPI
[2019-02-23 11:29] VITALS: BP 104/63
--- NOTE | 2019-02-23 11:43 | NUR ---
Pt is A&O. Resides at home alone. Known to this CM. 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 of [facility] skilled and [facility]. Pt has a walker, cane and wc at home that he can use for mobility assistance. Pt has home o2 through [facility]. Goal is home at [place]. Following.
[2019-02-23 12:12] LABS: CALCIUM 8.6 mg/dL (8.5-10.1); CREATININE 1.1 mg/dL (0.6-1.3); MAGNESIUM 1.7 mg/dL (1.8-2.4); POTASSIUM 4.1 mmol/L (3.5-5.1)
--- NOTE | 2019-02-23 14:34 | NUR ---
pt states he doesnt want IS or flutter pt states he has them at home and doesnt want new ones i asked if some one can bring them from home and he said no pt stated not to leave in room or open them save for someone that needs them
[2019-02-23 15:37] VITALS: BP 106/45
[2019-02-23 20:00] VITALS: BP 111/51
[2019-02-24] VITALS (7 sets, daily range): BP systolic 107–130; BP diastolic 46–59
--- NOTE | 2019-02-24 04:45 | NUR ---
ASSUMED PT CARE APPROX 1930. PT IS AWAKE AND ORIENTED X4. VSS ON 5L OF O2/NC. INTERNET SALES REPRESENTATIVE IN PLACE TRACING SR. PT COMPLAINS OF GENERALIZED BODY PAIN PARTIALLY RELIEVED BY PAIN MEDS GIVEN PER OCT. PEG TUBE IN PLACE, TUBE FEEDING WITH JEVITY 1.5 WELL TOLERATED. PT IS MORE COOPERATIVE THIS SHIFT. FALL PRECAUTIONS IN PLACE. CALL LIGHT WITHIN REACH. HOURLY ROUNDING DONE FOR PT SAFETY.
[2019-02-24 05:47] LABS: HEMATOCRIT 28.3 % (42.0-52.0); HEMOGLOBIN 9.4 gm/dL (14.0-18.0); MCH 30.6 pg (26.0-34.0); MCHC 33.3 g/dL (28.0-37.0); MCV 91.9 fL (80.0-100.0); MPV 9.3 fl. (7.2-11.1); RBC 3.08 mil/uL (4.50-6.00); RDW-CV 16.2 % (10.5-14.5); WBC 11.6 thou/uL (4.0-11.0)
[2019-02-24 06:07] LABS: CREATININE 1.1 mg/dL (0.6-1.3); MAGNESIUM 2.1 mg/dL (1.8-2.4); POTASSIUM 4.6 mmol/L (3.5-5.1)
--- NOTE | 2019-02-24 09:30 | NUR ---
WAS ASKED TO CHECK COST OF ELIQUIS 10MG BID X14 DAY AND THEN 5MG BID. TOTAL FOR THAT ONE MONTH SUPPLY AT [facility] PER CHAVO IS $43.86. UPDATED CAITIE MORALES TO DISCUSS WITH PT.
--- NOTE | 2019-02-24 11:23 | NUR ---
WOUND NURSE- WOUND CARE TEAM CONSULTED FOR "CHRONIC PERCY G-TUBE WOUND". PATIENT ALERT, BUT PROVIDES CONFUSING HISTORY. PER RECORDS, HE INITIALLY HAD A CAROLINE TUBE PLACED, BUT THEN INSISTED ON GOING BACK TO TRADITIONAL PEG TUBE, SO IT WAS PLACED ON 09/29/[address] SPENCER. HE REPORTS THAT HE WAS SCHEDULED FOR SOME PROCEDURE LATELY (?? PEG TUBE REPLACEMENT), BUT CANCELLED DUE TO NEEDING PULMONOLOGY CLEARANCE. HE REPORTS NO LEAKING AROUND TUBE. PEG TUBE TO LUQ ABDOMEN, WITH ADJACENT SCAR THAT APPEARS TO BE A PRIOR INSERTION SITE. NO DRAINAGE NOTED ON DRESSING. SURROUNDING SKIN WITH SLIGHT PINK ERYTHEMA, DRY FLAKY SKIN AND SOME CRUSTED DRAINAGE - POSSIBLE FUNGAL COMPONENT WITH SOME SATELLITE LESIONS. PATIENT DENIES ANY PRURITIS OR TENDERNESS. AREA SOAKED WITH SOAPY GAUZE PADS, CLEANSED WELL, RINSED WELL, PATTED DRY AND ALLOWED TO AIR DRY WELL, WITH OVERALL APPEARANCE MUCH IMPROVED. NOTED SLIGHT HYPERGRANULATION AROUND TUBE. ANTIFUNGAL OINTMENT APPLIED, THEN DRAIN SPONGE AND EXTERNAL BUMPER PLACED CLOSE TO SKIN TO SECURE TUBE. INSTRUCTED PATIENT ON RECOMMENDED PEG TUBE CARE, HE ANTICIPATES DISCHARGE TO HOME TOMORROW. ADDENDUM - OVERALL AFFECTED AREA APPROXIMATELY 8 X 3 CM.
--- NOTE | 2019-02-24 17:31 | NUR ---
ASSESSMENT COMPLETE. PT ALERT AND ORIENTED X4, FORGETFUL AT TIMES. LACTIC TRENDING DOWN. MRSA SWAB NEGATIVE. PT UP WITH ONE ASSIST WITH WALKER. PT HAD SPONGE BATH TODAY IN BATHROOM. PRN PAIN MEDICATION GIVEN TWICE. PT DOES SELF TUBE FEEDING IN PEG TUBE. SR/ST ON TELE MONITOR. VSS. PT IS IN BED, NO OTHER CONCERNS AT THIS TIME. SEE ASSESSMENT AND VITALS FOR OTHER DETAILS. CALL LIGHT WITHIN REACH, WILL CONTINUE PLAN OF CARE
[2019-02-25] VITALS: BP 122/52
[2019-02-25 04:00] VITALS: BP 128/58
--- NOTE | 2019-02-25 05:57 | NUR ---
PATIENT SLEPT PART OF THE NIGHT. PATIENT WAS GIVEN PAIN MEDICINE ABOUT EVERY 4 HOURS WITH SOME RELIEF. IV REMAINS SALINE LOCKED. PATIENT DOES OWN PEG TUBE FEEDINGS. PATIENT STATES HE IS GOING HOME TODAY. WILL CONTINUE TO MONITOR.
[2019-02-25 07:10] VITALS: BP 126/57
--- NOTE | 2019-02-25 09:42 | NUR ---
INITAL ASSESSMENT COMPLETED CHARTED. VSS. PT DENIES PAIN. FLAT AFFECT. PT HAS REMOVED IV AND REFUSES ACCU CHECKS. TRACING SR ON MONITOR. PT DENIES ANY FIRTHER NEEDS AT THIS TIME. HOURLY ROUNDING FOR PT SAFETY. CLWR.
--- NOTE | 2019-02-25 09:49 | NUR ---
INITAL ASSESSMENT COMPLETED CHARTED. TRACING SR ON MONITOR. CONTINUES ON 4LPM O2. VSS. PT STATES HE IS GOING HOME TODAY NO MATTER WHAT. PT C/O CHRONIC PAIN. PT MATIAS ANY FURTHER NEEDS AT THIS TIME. HOURLY ROUNDING AND FALL PRECAUTIONS IN PLACE FOR PT SAFETY. CLWR.
[2019-02-25] MEDS ORDERED: CEFDINIR300 MG PO (10:03)
[2019-02-25] MEDS ORDERED: AZITHROMYCIN 2250 MG PO (10:04)
[2019-02-25] MEDS ORDERED: PREDNISONE 20 M20 MG PER TUBE (10:07)
[2019-02-25] MEDS ORDERED: AUGMENTIN600 MG/5 M PO (10:53)
[2019-02-25] MEDS ORDERED: PREDNISONE 20 M20 MG PERTUBE (10:53)
[2019-02-25] MEDS ORDERED: ELIQUIS5 MG PER TUBE (10:53)
--- NOTE | 2019-02-25 11:55 | NUR ---
PT DISCHARGED. VSS. IV REMOVED AND MONITOR REMOVED. PT EDUCATED ON NEW RX. VERBALIZES UNDERSTANDING.
== END 2019-02-25 11:55 | disposition home or self-care (01) | DRG 871 ==
LOC: M.ERS 22:26 → M.2W 02-23 01:09 → M.TBA-ER 02-23 01:09 → M.2W 02-23 03:03
PROVIDERS: Family Medicine; ADMIT Internal Medicine
DX: A41.9 Sepsis, unspecified organism (principal); J69.0 Pneumonitis due to inhalation of food and vomit; E43 Unspecified severe protein-calorie malnutrition; I26.99 Other pulmonary embolism without acute cor pulmonale; G92 Toxic encephalopathy; J96.01 Acute respiratory failure with hypoxia; J96.02 Acute respiratory failure with hypercapnia; D68.59 Other primary thrombophilia; K92.2 Gastrointestinal hemorrhage, unspecified; I12.9 Hypertensive chronic kidney disease with stage 1 through stage 4 chronic kidney disease, or unspecified chronic kidney disease; G89.29 Other chronic pain; M54.9 Dorsalgia, unspecified; J43.9 Emphysema, unspecified; F41.1 Generalized anxiety disorder; R13.10 Dysphagia, unspecified; E11.22 Type 2 diabetes mellitus with diabetic chronic kidney disease; N18.2 Chronic kidney disease, stage 2 (mild); Z85.810 Personal history of malignant neoplasm of tongue; Z92.21 Personal history of antineoplastic chemotherapy; Z87.891 Personal history of nicotine dependence; Z79.891 Long term (current) use of opiate analgesic; Z79.899 Other long term (current) drug therapy

== ENCOUNTER 2020-01-28 13:08 | Emergency (ER) | payer MEDICARE ==
[~2020-01-28] VITALS: Ht 180.3 cm; Wt 79.4 kg
[~2020-01-28 13:08] MED LIST changes: +AUGMENTIN600 MG/5 M PO; +ELIQUIS5 MG PER TUBE; +PREDNISONE 20 M20 MG PER TUBE; +PREDNISONE 20 M20 MG PERTUBE
[2020-01-28] MEDS ORDERED: VICODIN HP 10-1 EAC1 PO (13:20)
[2020-01-28 13:56] LABS: ABSOLUTE BASOPHILS 0.1 thou/uL (0.0-0.2); ABSOLUTE LYMPHOCYTES 1.2 thou/uL (0.8-5.3); ABSOLUTE MONOCYTES 1.2 thou/uL (0.0-1.2); ABSOLUTE NEUTROPHILS 13.4 thou/uL (1.6-8.1); BASOPHILS 0.3 %; EOSINOPHILS 0.2 %; HEMATOCRIT 36.8 % (42.0-52.0); HEMOGLOBIN 12.5 gm/dL (14.0-18.0); LYMPHOCYTES 7.3 %; MCHC 34.1 g/dL (28.0-37.0); MCV 90.7 fL (80.0-100.0); MONOCYTES 7.9 %; MPV 8.2 fl. (7.2-11.1); NUCLEATED RBCS 0 /100WBC; PLATELET COUNT* 154 thou/uL (150-400); POLYS 84.3 %; RBC 4.05 mil/uL (4.50-6.00); RDW-CV 14.1 % (10.5-14.5); WBC 15.9 thou/uL (4.0-11.0)
[2020-01-28 14:02] LABS: APTT 28.4 Seconds (25.0-31.3); PROTIME 10.4 Seconds (9.20-11.50)
[2020-01-28 14:14] LABS: CALCIUM 9.7 mg/dL (8.5-10.1); POTASSIUM 3.9 mmol/L (3.5-5.1)
[2020-01-28 14:19] LABS: ALBUMIN 3.7 g/dL (3.4-5.0); TOTAL BILIRUBIN 0.7 mg/dL (<0.1-1.0); TOTAL PROTEIN 7.8 g/dL (6.4-8.2)
[2020-01-28 16:15] VITALS: BP 129/70
[2020-02-01] MEDS ORDERED: ASPIR 8181 M1 PO (11:31)
[2020-02-01] MEDS ORDERED: LASIX 20 MG TAB20 MG PO (11:32)
[2020-02-01] MEDS ORDERED: VITAMIN D31250 MC1 PO (11:36)
--- NOTE | 2020-02-20 08:28 | CON ---
[address] [address] CONSULTATION Name: LATOYAROGE Maria E [id number] Admission: 01/28/20 Attend Phys: Discharge: 01/28/20 Date of : 46 Report #: [id number] THIS REPORT FOR: //name// cc: Melissa Bonds Tami FNP ~ THIS REPORT FOR: //name// CC: Lorenzo Bonds DATE OF SERVICE: 01/28/2020 HISTORY OF PRESENT ILLNESS: This is a pleasant 69-year-old male with past medical history significant for tongue cancer, status post PEG tube placement for nutrition. The patient presented to the ER because of leakage around the PEG tube and damage to PEG tube. The patient reports some erythema around the site due to excessive leakage, denies any abdominal pain. The PEG tube has been in place for about 14 months. The patient does not take anything from his mouth and receives all his nutrition from the PEG tube. 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 PAST SURGICAL HISTORY: The patient has a history of back surgery, G-tube placed in 2017. SOCIAL HISTORY: The patient has a remote history of smoking. Denies significant alcohol or recreational drug use. FAMILY HISTORY: No family history of colon cancer or Hillman-related neoplasia. REVIEW OF SYSTEMS: Comprehensive 10-point review of systems is negative except for what was mentioned in the HPI. PHYSICAL EXAMINATION: GENERAL: The patient is alert, awake, oriented x 3. HEENT: Pupils are equal, round, reactive to light and accommodation. Mucous membranes are moist. There is no congestion. LUNGS: Clear to auscultation bilaterally. CARDIOVASCULAR: Rate and rhythm regular, S1, S2 present. ABDOMEN: Soft. There is no distention, guarding or rigidity. EXTREMITIES: Warm, well perfused. The site around the PEG tube appears mildly erythematous. ASSESSMENT AND PLAN: Pleasant 69-year-old male, presenting for outpatient percutaneous endoscopic gastrostomy tube evaluation[place] [address] CONSULTATION Name: ROGE KLEIN Room: [facility]#: [id number] Admission: 01/28/20 Attend Phys: Discharge: 01/28/20 Date of : 46 Report #: [id number] replacement of the percutaneous endoscopic gastrostomy tube at bedside. The patient can follow up with us if he continues to have leakage around the percutaneous endoscopic gastrostomy tube. <ELECTRONICALLY SIGNED> By: Avelino Mehta MD 02/20/20 0828 [id number] Mehta MD /nt
== END 2020-01-28 16:16 | disposition home or self-care (01) ==
LOC: M.ERS 13:08
PROVIDERS: Family Medicine
DX: K94.23 Gastrostomy malfunction (principal); I12.9 Hypertensive chronic kidney disease with stage 1 through stage 4 chronic kidney disease, or unspecified chronic kidney disease; E11.22 Type 2 diabetes mellitus with diabetic chronic kidney disease; N18.2 Chronic kidney disease, stage 2 (mild); J44.9 Chronic obstructive pulmonary disease, unspecified; G89.29 Other chronic pain

== ENCOUNTER 2020-01-31 10:01 | Emergency (ER) | payer MEDICARE ==
[~2020-01-31] VITALS: Ht 177.8 cm; Wt 78.9 kg
[~2020-01-31 10:01] MED LIST changes: +VICODIN HP 10-1 EAC1 PO
[2020-01-31 10:25] LABS: HEMATOCRIT 37.3 % (42.0-52.0); HEMOGLOBIN 12.6 gm/dL (14.0-18.0); MCH 30.7 pg (26.0-34.0); MCHC 33.9 g/dL (28.0-37.0); MCV 90.5 fL (80.0-100.0); MPV 7.9 fl. (7.2-11.1); NUCLEATED RBCS 0 /100WBC; PLATELET COUNT* 166 thou/uL (150-400); RBC 4.12 mil/uL (4.50-6.00); RDW-CV 14.4 % (10.5-14.5); WBC 15.7 thou/uL (4.0-11.0)
[2020-01-31 10:31] LABS: CALCIUM 9.5 mg/dL (8.5-10.1); CREATININE 1.1 mg/dL (0.6-1.3); POTASSIUM 4.4 mmol/L (3.5-5.1)
[2020-01-31 10:44] LABS: ALBUMIN 3.8 g/dL (3.4-5.0); TOTAL BILIRUBIN 0.6 mg/dL (<0.1-1.0)
[2020-01-31 10:58] LABS: ABSOLUTE EOSINOPHILS 0.2 thou/uL (0.0-0.7); ABSOLUTE LYMPHOCYTES 4.2 thou/uL (0.8-5.3); ABSOLUTE MONOCYTES 0.5 thou/uL (0.0-1.2); ABSOLUTE NEUTROPHILS 10.8 thou/uL (1.6-8.1); MYELOCYTES 2 %; PLATELET ESTIMATE ADEQUATE
[2020-01-31 11:25] VITALS: BP 135/62
[2020-02-01] MEDS ORDERED: ASPIR 8181 M1 PO (11:31)
[2020-02-01] MEDS ORDERED: LASIX 20 MG TAB20 MG PO (11:32)
[2020-02-01] MEDS ORDERED: VITAMIN D31250 MC1 PO (11:36)
== END 2020-01-31 11:25 | disposition home or self-care (01) ==
LOC: M.ERS 10:01
PROVIDERS: Family Medicine
DX: K94.23 Gastrostomy malfunction (principal); I12.9 Hypertensive chronic kidney disease with stage 1 through stage 4 chronic kidney disease, or unspecified chronic kidney disease; E11.22 Type 2 diabetes mellitus with diabetic chronic kidney disease; N18.2 Chronic kidney disease, stage 2 (mild); G89.29 Other chronic pain; J44.9 Chronic obstructive pulmonary disease, unspecified; F11.10 Opioid abuse, uncomplicated; Z85.810 Personal history of malignant neoplasm of tongue

== ENCOUNTER → 2020-02-01 | Day surgery (SDC) | payer MEDICARE ==
[~2020-02-01] MED LIST changes: +ASPIR 8181 M1 PO; +VITAMIN D31250 MC1 PO
--- NOTE | 2020-02-01 12:33 | EKG ---
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 Art: : 1950 Requested By: Evaristo Lopez Order Number: [id number] Mansi MD: Bakari Alaniz Measurements Intervals [place] Rate: 51 P: 54 [place]: 166 QRS: 23 QRSD: 89 T: 19 QT: 423 QTc: 390 Interpretive Statements Sinus bradycardia Compared to ECG 02/22/2019 22:49:22 Sinus tachycardia no longer present Electronically Signed On 02-01-2020 12:32:51 CDT by Bakari Alaniz [email or web address] <ELECTRONICALLY SIGNED> By: Bakari Alaniz MD, [facility] 02/01/20 1232 1146 1146 Bakari Alaniz MD, [facility] /EPI
== END | disposition home or self-care (01) ==
LOC: M.SUR 10:54
PROVIDERS: ATTEND Internal Medicine Gastroenterology
DX: K94.23 Gastrostomy malfunction (principal); I12.9 Hypertensive chronic kidney disease with stage 1 through stage 4 chronic kidney disease, or unspecified chronic kidney disease; E11.22 Type 2 diabetes mellitus with diabetic chronic kidney disease; N18.2 Chronic kidney disease, stage 2 (mild); M54.5 Low back pain; J44.9 Chronic obstructive pulmonary disease, unspecified; G89.29 Other chronic pain; F11.20 Opioid dependence, uncomplicated; Z98.890 Other specified postprocedural states; Z79.899 Other long term (current) drug therapy; Z79.82 Long term (current) use of aspirin; Z85.810 Personal history of malignant neoplasm of tongue; Z79.01 Long term (current) use of anticoagulants; Z86.711 Personal history of pulmonary embolism

== ENCOUNTER → 2020-04-13 | Outpatient (CLI) | payer MEDICARE | LOC: M.LAB 11:15 | PROVIDERS: ATTEND Internal Medicine Gastroenterology | DX: Z01.812 Encounter for preprocedural laboratory examination (principal); Z20.828 Contact with and (suspected) exposure to other viral communicable diseases ==

== ENCOUNTER 2020-09-26 08:04 | Inpatient (IN) | payer MEDICARE ==
[~2020-09-26] VITALS: Ht 175.3 cm; Wt 81.6 kg
[2020-09-26 08:13] VITALS: BP 101/56
[2020-09-26 08:46] LABS: HEMATOCRIT 34.7 % (42.0-52.0); HEMOGLOBIN 10.9 gm/dL (14.0-18.0); MCH 28.2 pg (26.0-34.0); MCHC 31.6 g/dL (28.0-37.0); MCV 89.4 fL (80.0-100.0); MPV 9.2 fl. (7.2-11.1); NUCLEATED RBCS 0 /100WBC; PLATELET COUNT* 219 thou/uL (150-400); RBC 3.88 mil/uL (4.50-6.00); RDW-CV 15.4 % (10.5-14.5); WBC 23.5 thou/uL (4.0-11.0)
[2020-09-26 08:53] LABS: CALCIUM 8.8 mg/dL (8.5-10.1); CREATININE 1.7 mg/dL (0.6-1.3); POTASSIUM 4.8 mmol/L (3.5-5.1)
[2020-09-26 09:03] LABS: ALBUMIN 2.3 g/dL (3.4-5.0); DIRECT BILIRUBIN 0.1 mg/dL (<0.1-0.3); TOTAL BILIRUBIN 0.8 mg/dL (<0.1-1.0)
[2020-09-26 09:04] LABS: URINE BILIRUBIN NEGATIVE (Negative); URINE BLOOD NEGATIVE (Negative); URINE CLARITY CLEAR; URINE COLOR YELLOW; URINE GLUCOSE-RANDOM NEGATIVE (Negative); URINE KETONES NEGATIVE (Negative); URINE LEUKOCYTES NEGATIVE (Negative); URINE NITRITE NEGATIVE (Negative); URINE PROTEIN TRACE (Negative); URINE UROBILINOGEN 0.2 E.U./dl (0.2-1.0)
[2020-09-26 09:58] LABS: ABSOLUTE EOSINOPHILS 0.2 thou/uL (0.0-0.7); ABSOLUTE LYMPHOCYTES 0.7 thou/uL (0.8-5.3); ABSOLUTE MONOCYTES 1.6 thou/uL (0.0-1.2); ABSOLUTE NEUTROPHILS 20.9 thou/uL (1.6-8.1); ANISOCYTOSIS 1+; PLATELET ESTIMATE ADEQUATE; POIKILOCYTOSIS 1+
--- NOTE | 2020-09-26 11:40 | NUR ---
URSULA BROWN CALLED TO SEE HOW PT IS. HIS NUMBER IS [phone]. STATED PATIENT LIVES AT HOME BY HIMSELF AND TAKES CARE OF HIMSELF. URSULA FEELS PT GOT INTO HIS CONDITION BY GOING TO GI DOCTOR THEY STRETCHED HIS ESPOS. THEN TOLD HIM TO EAT THROUGH HIS MOUTH. URSULA FEELS HE HAD A LOT OF COUGHING AND EMESIS WITH THIS. THEY TOOK HIM TO [facility] WHERE PT WAS THERE FOR 8 DAYS FOR PNEUMONIA AND THEY DISCHARGED HIM YESTERDAY. URSULA SAID HE TAKES ALL FOOD THEROUGH HIS PEG TUBE. WHEN ASKED WHAT HE TAKES HE WAS UNABLE TO TELL ME THE NAME OF IT. HE DID STATE IT WAS A HIGH CALORIE DRINK AND IT COMES IN A BOX.
[2020-09-26 12:33] VITALS: BP 107/64
[2020-09-26 13:00] VITALS: BP 119/61
--- NOTE | 2020-09-26 18:17 | NUR ---
PT A&OX3 VSS. PT SLEEPS MOST OF TIME, BUT WILL WAKE AND RESPOND APPROPRIATELY. PT REMAINS NPO, ALL MEDS AND INTAKE THRU PEG TUBE. PT INTIALLY HYPOTENSIVE, BUT MOST RECENT VS SHOW BP 140/76. PT DENIES PAIN. IV TO L WRIST 22g, IV TO RAC 22g BOTH PATENT. FLUIDS RUNNING PER ORDERS. ACCUCHECKS, NO INSULIN INDICATED. [facility] FAXED TO REQUEST RECORDS PER DR MEJIA'S REQUEST. PT HAS INTERMITTENT PRODUCTIVE COUGH. NRG RAPID, BUT PCR PENDING AT THIS POINT. PT RESTING IN ROOM WTIH CALL LIGHT IN REACH.
[2020-09-26 20:45] VITALS: BP 132/49
[2020-09-27 00:20] VITALS: BP 124/65
[2020-09-27 03:30] VITALS: BP 133/55
[2020-09-27 05:32] LABS: HEMATOCRIT 28.7 % (42.0-52.0); HEMOGLOBIN 9.1 gm/dL (14.0-18.0); MCH 28.7 pg (26.0-34.0); MCHC 31.7 g/dL (28.0-37.0); MCV 90.4 fL (80.0-100.0); MPV 8.9 fl. (7.2-11.1); RBC 3.18 mil/uL (4.50-6.00); RDW-CV 15.2 % (10.5-14.5); WBC 12.7 thou/uL (4.0-11.0)
--- NOTE | 2020-09-27 05:37 | NUR ---
PT SLEPT OFF AND ON OVERNIGHT. RECEIVING HYDROCODONE AND ALPRAZOLAM ORDERED WITH GOOD RESULT. NPO, MEDS CRUSHED AND GIVEN THROUGH PEG TUBE WITH WATER FLUSH WITHOUT DIFFICULTY. NO RESIDUAL. HOB ELEVATED. ZOFRAN GIVEN FOR CO NAUSEA, NO EMESIS. ORAL CARE GIVEN PRN. ACCUCHECKS WNL. AM LABS. O2 4L NC SATS 92-95%. TELE SR.RAC SL. LWRIST IVF INFUSING PER PUMP. USING URINAL TO VOID WITH ASSIST. COVID PCR RESULT NEGATIVE THIS MORNING. L ELBOW SKIN TEAR DRSG CDI. BEDREST. AO TO SELF AND SITUATION, CONFUSED AND IRRITABLE AT TIMES. PT STATES HE WANTS "HOSPICE, I JUST WANT TO HAVE MEDICINE" TO BE COMFORTABLE AND " NOT BE KEPT ALIVE. YOU PEOPLE KEEP PEOPLE ALIVE LONGER THAN THEY SHOULD BE". RECORDS OF RECENT HOSPITALIZATION HAVE BEEN REQUESTED FROM [facility]. CALL LITE IN EASY REACH, BED ALRM ON FOR SAFETY.
[2020-09-27 06:08] LABS: ALBUMIN 1.9 g/dL (3.4-5.0); CREATININE 1.2 mg/dL (0.6-1.3); MAGNESIUM 1.9 mg/dL (1.8-2.4); TOTAL BILIRUBIN 0.5 mg/dL (<0.1-1.0); TOTAL PROTEIN 5.1 g/dL (6.4-8.2)
[2020-09-27 06:10] LABS: POTASSIUM 3.8 mmol/L (3.5-5.1)
[2020-09-27 08:00] VITALS: BP 133/46
--- NOTE | 2020-09-27 08:00 | NUR ---
AM ASSESSMENT COMPLETE, DEFER TO COMPUTER CHARTING. FRONT LINE LEADER TRACKING SR. ALERT ORIENTED, FRUSTRATED - ANGRY, REASSURNACE GIVEN. PATIENT STATING WANTS HOSPICE AND WANTING TO . 02 ON 4L PER NC. REPORTING HAVING GENERALIZED DISCOMFORT, WILL GIVE REPEAT PAIN MEDICATION WITH AM MEDS. HOB ELEVATED, CALL LIGHT WTIHIN REACH. WILL MONITOR.
--- NOTE | 2020-09-27 11:30 | NUR ---
SPOKE WITH PT.AT BEDSIDE. HE SAID WANTS HOSPICE. HE SAID HE LIVES ALONE. EXPLAINED IF HE WERE TO GO HOME WITH HOSPICE, HE WOULD NEED SOMEONE TO BE HIS CAREGIVER 10/03. HE SAID HE CANNOT AFFORED A PRIVATE DUTY CAREGIVER. HE SAID HE HAS FRIENDS BUT THEY CANNOT BE WITH HIM ALL THE TIME. HE SAID THERE IS NO WAY I CAN GO HOME. HE DOES NOT WANT A NURSING FACILITY. HE WANTS TO GO TO A HOSPICE. HOUSE. EXPLAINED CRITERIA TO QUALIFY TO GO TO A HOSPICE HOUSE. PT.HAS A DPOA/AD. NOT ON FILE. HIS COUSIN IS HIS DPOA-AGUILA PADILLA. NO NUMBER FOR HER.WILL CALL HIS FRIEND URSULA TO SEE IF HE HAS NUMBER. PT.HAS HOME 02 AND A WALKER. PT.TO TRANSFER UP TO TELE FLOOR. WILL ENDY TO WORK ON OBTAINING DPOA DOCUMENT.
--- NOTE | 2020-09-27 11:54 | NUR ---
ORDERS RECEIVED TO TRANSFER PATIENT TO TELE FLOOR. REPORT CALLED GIVEN TO BENSON PRADHAN WHOM VERBALIZED UNDERSTANDING HAVING NO QUESTIONS. ALL PERSONAL ITEMS COLLECTED TO SEND WITH PATIENT - TRANSFERED VIA BED. WILL MONITOR.
[2020-09-27 12:40] VITALS: BP 149/70
--- NOTE | 2020-09-27 13:28 | NUR ---
pt up to room 202 via bed. Pt refuses IVF states " I don't want any of this treatment anymore. Just let me . I want hospice". Discussed hospice options as has already been discussed by CM. Pt agrees to TF. Pt full code at this time. Will discuss with Dr Isaac
--- NOTE | 2020-09-27 14:05 | EKG ---
[place] [address] ELECTROCARDIOGRAM REPORT Name: ROGE KLEIN Room: [address] [place] ..#: [id number] Admission: 09/26/20 Attend Phys: Dilia Moreira, Discharge: Date of : 46 Date of Service: 09/26/20 0816 Report #: [id number] THIS REPORT FOR: //name// [facility] ED Test Date: 2020-09-26 Test Time: 08:16:14 Pat Name: ROGE KLEIN Department: Room: [facility] Gender: M J2Ee Java Developer: CCD : 1950 Requested By: Tom Perez Order Number: [id number] MD: Raj Mobley Measurements Intervals [place] Rate: 77 P: 27 MS: 132 QRS: 18 QRSD: 85 T: 8 QT: 416 QTc: 471 Interpretive Statements Sinus rhythm Atrial premature complex Borderline T abnormalities, inferior leads Compared to ECG 02/01/2020 11:46:27 Atrial premature complex(es) now present T-wave abnormality now present Sinus bradycardia no longer present Electronically Signed On 09-27-2020 14:05:16 DIRECTOR OF SOCIAL WORK by Raj Mobley [email or web address] <ELECTRONICALLY SIGNED> By: Raj Mobley MD, [facility] 09/27/20 1405 5 5 Raj Mobley MD, [facility] /EPI
--- NOTE | 2020-09-27 15:57 | NUR ---
PT. FORMALLY DECLINES O.T. AT THIS TIME DUE TO PURSUING COMFORT CARE. PT.'S RN AND A VISITOR WAS PRESENT.
--- NOTE | 2020-09-27 17:20 | NUR ---
PT STATES HE WOULD LIKE TO CHANGE HIS DPOA TO CHRISSY BROWN . CHRISSY AT BS. DPOA PAPERWORK FILLED OUT. PT CHANGED HIS HEALTHCARE DIRECTIVE THAT WAS ON CHART TO BE A DNR. PAPERWORK FAXED TO [facility] PER PT REQUEST. [facility] STATES THEY WILL CALL CM TO FOLLOWUP TOMORROW. DISCUSSED OTHER OPTION OF [facility] WITH HOSPICE CARE WHICH PT IS AGREEABLE TO IF HE CANNOT GO TO [facility]
--- NOTE | 2020-09-27 17:23 | NUR ---
PT TO ROOM 202 THIS AFTERNOON. REPORTS CHRONIC PAIN. REFUSES VS,OT AND STATES HE WANTS TO STOP ALL TX. PT AGREEABLE TO TF. PT NPO AND RECEIVES TF EVERY 4 HRS. PT VOIDING. PT STATES HE WOULD LIKE HOSPICE. ADONIS AND DR DIAZ. FRIEND AT AND PT STATUS DISCUSSED
[2020-09-27 20:00] VITALS: BP 137/56
--- NOTE | 2020-09-28 05:15 | NUR ---
ASSUMED CARE OF PT AFTER REPORT AT 1930. PT A&OX4. VSS. PHYSICAL ASSESSMENT COMPLETED AND CHARTED. PT ON O2 AT 4L NC. PT TRACING SR ON TELE. PT REFUSING ACCUCHECK, VITAL SIGNS, TURNS & SOME MEDICATIONS EVEN AFTER EDUCATION. PT WANTS TO BE COMFORT CARE. PT COMPLAINED OF GENERALIZED BODY PAIN-MED GIVEN PER MAR. FALL PRECAUTIONS IN PLACE. CALL LIGHT WITHIN REACH.
[2020-09-28 07:45] LABS: HEMATOCRIT 27.6 % (42.0-52.0); HEMOGLOBIN 8.8 gm/dL (14.0-18.0); MCH 28.7 pg (26.0-34.0); MCHC 31.9 g/dL (28.0-37.0); MCV 89.9 fL (80.0-100.0); MPV 8.9 fl. (7.2-11.1); RBC 3.07 mil/uL (4.50-6.00); RDW-CV 15.3 % (10.5-14.5); WBC 13.9 thou/uL (4.0-11.0)
[2020-09-28 08:00] VITALS: BP 145/54
[2020-09-28 08:52] LABS: CALCIUM 7.5 mg/dL (8.5-10.1); CREATININE 1.2 mg/dL (0.6-1.3); MAGNESIUM 1.8 mg/dL (1.8-2.4)
[2020-09-28 12:00] VITALS: BP 121/50
[2020-09-28 13:58] VITALS: BP 137/54
--- NOTE | 2020-09-28 14:56 | NUR ---
Pt has decided that he wants to fight, therapies ordered. Hospice still an option if Pt does not improve, son aware. On 4L. M/s status. Anticipate dc in a few days.
[2020-09-28 16:00] VITALS: BP 132/62
[2020-09-28 17:57] VITALS: BP 119/59
--- NOTE | 2020-09-28 19:00 | NUR ---
I ASSUMED CARE OF THE PATIENT AT 0700. HE IS ALERT AND ORIENTED X4 AND IS UP WITH ASSIST OF ONE TO THE COMMODE. BED IS IN THE LOW LOCKED POSITION AND CALL LIGHT IS IN REACH. HOURLY ROUNDING IS COMPLETED AND PATIENT NEEDS ARE MET. PAIN IS PARTIALLY MANAGED WITH PRN MEDS. STUDENT ASSESSMENT IS ACCURATE. HE HAS DECIDED TO COME OFF OF COMFORT CARE AND SPOKE WITH THE PHYSICIAN THIS MORNING ABOUT HIS PLAN OF CARE. HE PARTICIAPTED WITH TURNS, LAB DRAWS, VITALS, MEDS, ETC. ALL PO MEDS WERE GIVEN PER TUBE WITH WATER BOLUSES. HE HAD A CHEST XRAY TODAY. WILL CONTINUE TO MONITOR.
[2020-09-28 20:00] VITALS: BP 136/56
[2020-09-29] VITALS: BP 134/59
--- NOTE | 2020-09-29 05:30 | NUR ---
ASSUMED PT'S CARE BEGINNING OF THIS PM SHIFT. ALERT AND ORIENTED. VSS ON NOW ON 2L. DID TAKE MEDS PER TUBE. PT SLEPT OFF AND ON. FALL PRECAUTION IN PLACE. DID HAVE BM THIS SHIFT. CALL LIGHT WITHIN REACH. [facility] CALLED BEGINING OF SHIFT WHEN RN WAS STILL GETTING REPORT. RN RETURNED CALL BUT NO ANSWER. RN UNABLE TO LEAVE VM VM BOX WAS FULL. PT DID HAVE A BM THIS SHIFT. WILL CONTINUE TO MONITOR. .
[2020-09-29 08:00] VITALS: BP 128/67
[2020-09-29] MEDS ORDERED: VICODIN HP 10-1 EAC1 PO (09:49)
[2020-09-29] MEDS ORDERED: PREDNISONE 10 M10 MG PO (09:49)
[2020-09-29] MEDS ORDERED: AZITHROMYCIN 2250 MG PO (09:49)
[2020-09-29] MEDS ORDERED: XANAX1 MG PER TUBE (09:49)
[2020-09-29] MEDS ORDERED: LACTOBACILLUS1 EACH PO (09:49)
[2020-09-29] MEDS ORDERED: CEFUROXIME500 MG PERTUBE (09:49)
--- NOTE | 2020-09-29 11:48 | NUR ---
Pt has dc orders. Pt refusing to go to skilled, but is willing to have CM fax referral to [facility], CM faxed, awaiting decision to accept. Friend in room and in agreement with POC. Friend willing to continue watching Pt's dog.
[2020-09-29 16:00] VITALS: BP 135/66
[2020-09-29 19:45] VITALS: BP 144/60
--- NOTE | 2020-09-30 03:31 | NUR ---
ASSUMED CARE OF PT AT 1900. PT IS ALERT AND ORIENTED. VSS. PERRLA. NO COMPLAINTS OF PAIN. NO RESIDUALS FROM PEG. PT IS MED SURG. PT IS SLEEPING QUIETLY IN BED. RESPIRATIONS ARE EVEN AND NONLABORED. WILL CONTINUE TO MONITOR PT.
[2020-09-30 04:33] VITALS: BP 137/66
--- NOTE | 2020-09-30 13:41 | NUR ---
CM INFORMED BY THE RN IN-CHARGE OF THE PT OF THE PT'S D/C TODAY TO SKILLED AT [facility]. CM SPOKE TO ADMISSIONS WITH ISM'S AND SHE ARRANGED W/C VAN TRANSPORT FOR THE PT FOR 1600. CM INFORMED THE RN IN-CHARGE OF THE PT OF THE PT'S TIME OF TRANSFER AND WHERE TO CALL REPORT. RN IN AGREEMENT. CM WILL REMAIN AVAILABLE TO ASSIST AND FOLLOW NEEDED. [facility] PHONE: [phone] FAX: [phone]
[2020-09-30 14:39] VITALS: BP 146/63
--- NOTE | 2020-09-30 14:44 | NUR ---
REPORT CALLED TO [facility]. WILL DISCOTNIUE IVS AND PT WILL TRANSPORT AT 1600 TODAY. WILL SEND LARGE CAN OF Get[employer] 1.5.
== END 2020-09-30 16:15 | DRG 871 ==
LOC: M.ERS 08:04 → M.2W 09:56 → M.ORTHSURG 09:56 → M.TBA-ER 09:56 → M.ORTHSURG 12:54 → M.2W 09-27 12:22
PROVIDERS: Emergency Medicine; Internal Medicine; ADMIT Internal Medicine; ATTEND Internal Medicine
DX: A41.50 Gram-negative sepsis, unspecified (principal); J15.6 Pneumonia due to other Gram-negative bacteria; J96.01 Acute respiratory failure with hypoxia; J15.3 Pneumonia due to streptococcus, group B; I50.22 Chronic systolic (congestive) heart failure; I13.0 Hypertensive heart and chronic kidney disease with heart failure and stage 1 through stage 4 chronic kidney disease, or unspecified chronic kidney disease; I95.9 Hypotension, unspecified; G89.29 Other chronic pain; M54.9 Dorsalgia, unspecified; J43.9 Emphysema, unspecified; N18.2 Chronic kidney disease, stage 2 (mild); E78.5 Hyperlipidemia, unspecified; E11.22 Type 2 diabetes mellitus with diabetic chronic kidney disease; I95.89 Other hypotension; F41.1 Generalized anxiety disorder; Z20.822 Contact with and (suspected) exposure to COVID-19; Z85.89 Personal history of malignant neoplasm of other organs and systems; Z92.21 Personal history of antineoplastic chemotherapy; Z92.3 Personal history of irradiation; Z79.84 Long term (current) use of oral hypoglycemic drugs; Z79.899 Other long term (current) drug therapy; Z87.891 Personal history of nicotine dependence

== ENCOUNTER 2020-10-13 14:19 | Emergency (ER) | payer MEDICARE ==
[~2020-10-13] VITALS: Ht 180.3 cm; Wt 83.5 kg
[~2020-10-13 14:19] MED LIST changes: +CEFUROXIME500 MG PERTUBE; +LACTOBACILLUS1 EACH PO
[2020-10-13] MEDS ORDERED: MIRALAX119 GM PO (14:47)
[2020-10-13] MEDS ORDERED: ZINC SULFATE220 MG PO (14:48)
[2020-10-13 14:55] LABS: ABSOLUTE EOSINOPHILS 0.2 thou/uL (0.0-0.7); ABSOLUTE LYMPHOCYTES 1.5 thou/uL (0.8-5.3); ABSOLUTE MONOCYTES 0.9 thou/uL (0.0-1.2); ABSOLUTE NEUTROPHILS 8.1 thou/uL (1.6-8.1); BASOPHILS 0.4 %; EOSINOPHILS 2.2 %; HEMATOCRIT 26.9 % (42.0-52.0); HEMOGLOBIN 8.9 gm/dL (14.0-18.0); LYMPHOCYTES 13.7 %; MCH 29.2 pg (26.0-34.0); MCHC 33.1 g/dL (28.0-37.0); MCV 88.5 fL (80.0-100.0); MONOCYTES 8.5 %; MPV 7.7 fl. (7.2-11.1); NUCLEATED RBCS 0 /100WBC; PLATELET COUNT* 226 thou/uL (150-400); POLYS 75.2 %; RBC 3.04 mil/uL (4.50-6.00); RDW-CV 15.2 % (10.5-14.5); WBC 10.8 thou/uL (4.0-11.0)
[2020-10-13 15:03] LABS: CREATININE 1.1 mg/dL (0.6-1.3)
[2020-10-13 15:07] LABS: PROTIME 10.9 Seconds (9.20-11.50)
[2020-10-13 15:14] LABS: ALBUMIN 2.7 g/dL (3.4-5.0); TOTAL BILIRUBIN 0.2 mg/dL (<0.1-1.0); TOTAL PROTEIN 6.4 g/dL (6.4-8.2)
[2020-10-13 16:17] VITALS: BP 115/62
--- NOTE | 2020-10-13 16:49 | EKG ---
[place] [address] ELECTROCARDIOGRAM REPORT Name: ROGE KLEIN Room: [facility]#: [id number] Admission: 10/13/20 Attend Phys: Discharge: 10/13/20 Date of : 46 Date of Service: 10/13/20 1424 Report #: [id number] THIS REPORT FOR: //name// [facility] ED Test Date: 2020-10-13 Test Time: 14:24:36 Pat Name: ROGE KLEIN Department: Room: Gender: Meter Repairer Helper: [facility] : 1950 Requested By: Lorenzo Banegas Order Number: [id number] MD: Raj Mobley Measurements Intervals [place] Rate: 68 P: 56 [place]: 166 QRS: 51 QRSD: 87 T: 48 QT: 406 QTc: 432 Interpretive Statements Sinus rhythm Wandering baseline with artifact since the previous tracing, wandering baseline with artifact is noted Electronically Signed On 10-13-2020 16:48:52 CERTIFIED PEDORTHOTIST by Raj Mobley [email or web address] <ELECTRONICALLY SIGNED> By: Raj Mobley MD, [facility] 10/13/20 1648 1424 1424 Raj Mobley MD, [facility] /EPI
== END 2020-10-13 16:19 | disposition home or self-care (01) ==
LOC: M.ERS 14:19
PROVIDERS: Family Medicine
DX: R53.1 Weakness (principal); G89.29 Other chronic pain; E11.22 Type 2 diabetes mellitus with diabetic chronic kidney disease; I12.9 Hypertensive chronic kidney disease with stage 1 through stage 4 chronic kidney disease, or unspecified chronic kidney disease; N18.2 Chronic kidney disease, stage 2 (mild); J44.9 Chronic obstructive pulmonary disease, unspecified

== ENCOUNTER 2020-12-16 11:18 | Emergency (ER) | payer MEDICARE ==
[~2020-12-16] VITALS: Ht 170.2 cm; Wt 74.4 kg
[~2020-12-16 11:18] MED LIST changes: +MIRALAX119 GM PO; +ZINC SULFATE220 MG PO
[2020-12-16] MEDS ORDERED: KEFLEX250 MG/5 M PO (12:01)
[2020-12-16 12:15] VITALS: BP 115/53
== END 2020-12-16 12:15 | disposition home or self-care (01) ==
LOC: M.ERS 11:18
DX: L89.899 Pressure ulcer of other site, unspecified stage (principal); Z48.01 Encounter for change or removal of surgical wound dressing; G89.29 Other chronic pain; J44.9 Chronic obstructive pulmonary disease, unspecified; I25.10 Atherosclerotic heart disease of native coronary artery without angina pectoris; E11.22 Type 2 diabetes mellitus with diabetic chronic kidney disease; I12.9 Hypertensive chronic kidney disease with stage 1 through stage 4 chronic kidney disease, or unspecified chronic kidney disease; N18.2 Chronic kidney disease, stage 2 (mild)